=== PATIENT | female | born 1970 | race Caucasian/White ===

== ENCOUNTER → 2018-01-22 09:41 | Outpatient (CLI) | payer OTHER, SELFPAY ==
--- NOTE | 2018-01-22 09:42 | DI.RAD.S_ITS ---
PROCEDURE: XR LUMBAR SPINE 2-3V INDICATIONS: Low back and left leg pain TECHNIQUE: 3 views of the lumbar spine were acquired. COMPARISON: None. FINDINGS: Bones: 5 [id number] vertebrae are present. There is normal bony alignment. No vertebral body compression fractures. No suspicious bony lesions. Limbus vertebra noted at the L4 level. Multilevel early disc degeneration Soft tissues: Overlying bowel gas pattern is normal. No suspicious soft tissue calcifications. IMPRESSION: 1. Endplate osteophytes indicating early mild multilevel disc degeneration. Dictated by: Antonio Manrique [facility] Interpreted: Erick Nayak MD on 01/22/2018 at 11:44 Approved by: Erick Nayak M.D. on 01/22/2018 at 13:57
== END ==
PROVIDERS: Family Provider Physician Assistant; PCP Physician Assistant; Visit Provider Physician Assistant
DX: M51.16 Intervertebral disc disorders with radiculopathy, lumbar region (principal); M79.605 Pain in left leg; M54.5 Low back pain
CPT/HCPCS: 72100

== ENCOUNTER → 2018-01-29 12:50 | Outpatient (CLI) | payer OTHER, SELFPAY ==
--- NOTE | 2018-01-29 | DI.MG.S_ITS ---
BILATERAL DIGITAL SCREENING MAMMOGRAM 3D/2D WITH CAD: 01/29/2018 CLINICAL: Routine screening. Comparison is made to exams dated: 01/07/2017 mammogram, 11/21/2015 mammogram, and 11/16/2014 mammogram - [facility]. The tissue of both breasts is heterogeneously dense. This may lower the sensitivity of mammography. Current study was also evaluated with a Computer Aided Detection (CAD) system. There is an asymmetry in the right breast middle depth medial region seen on the craniocaudal view only. No other significant masses, calcifications, or other findings are seen in either breast. IMPRESSION: INCOMPLETE: NEEDS ADDITIONAL IMAGING EVALUATION The asymmetry in the right breast is indeterminate. Additional views with possible ultrasound are recommended. This exam was interpreted at Station ID: [id number]. NOTE: For mammograms, a report in lay terms will be sent to the patient. Approximately 15% of breast malignancies will not be visualized mammographically. In the management of a palpable breast mass, a negative mammogram must not discourage biopsy of a clinically suspicious lesion. Electronically Signed By: Kanika medina/jil:01/29/2018 14:46:32 letter sent: Additional Imaging Needed ACR BI-RADS Category 0: Incomplete 3340F
== END ==
PROVIDERS: Family Provider Physician Assistant; PCP Physician Assistant; Visit Provider Physician Assistant
DX: Z12.31 Encounter for screening mammogram for malignant neoplasm of breast (principal)
CPT/HCPCS: 77063; 77067

== ENCOUNTER → 2018-02-22 08:23 | Outpatient (CLI) | payer OTHER, SELFPAY ==
--- NOTE | 2018-02-22 08:27 | DI.US.S_ITS ---
ULTRASOUND OF RIGHT BREAST: 02/22/2018 CLINICAL: Patient returns today to evaluate a density in the right breast. Comparison is made to exams dated: 02/22/2018 mammogram, 01/29/2018 mammogram, 01/07/2017 mammogram, 11/21/2015 mammogram, and 11/16/2014 mammogram - [facility]. Color flow and real-time ultrasound of the right breast were performed on the areas of interest. Deluca scale images of the real-time examination were reviewed. There is a septated cyst in the right breast at 1 o'clock middle depth. This cyst is hypoechoic with posterior acoustic enhancement. There also a lymph node in the right axillary tail with an enlarged fatty hilum. No cortical thickening noted. IMPRESSION: PROBABLY BENIGN The septated cyst in the right breast at 1 o'clock middle depth is probably benign. Follow-up mammogram and ultrasound in 6 months is recommended. The enlarged, fatty lymph node in the right axillary tail is probably benign. A follow-up ultrasound in 6 months is recommended. This exam was interpreted at Station ID: [id number]. Electronically Signed By: Kanika medina/:02/22/2018 09:42:41 letter sent: Followup Recommended Ultrasound BI-RADS: 3 Probably benign
--- NOTE | 2018-02-22 08:27 | DI.MG.S_ITS ---
UNILATERAL RIGHT DIGITAL DIAGNOSTIC MAMMOGRAM 3D/2D WITH ADDITIONAL VIEWS: 02/22/2018 CLINICAL: Additional evaluation requested from prior study. Comparison is made to exams dated: 01/29/2018 mammogram, 01/07/2017 mammogram, and 11/21/2015 mammogram - [facility]. The tissue of right breast is heterogeneously dense. This may lower the sensitivity of mammography. There is a mass in the right breast at 3 o'clock middle depth. No other significant masses or calcifications are seen in the breast. IMPRESSION: INCOMPLETE: NEEDS ADDITIONAL IMAGING EVALUATION The mass in the right breast is indeterminate. A targeted ultrasound of the right breast is recommended and will be performed immediately following this exam. This exam was interpreted at Station ID: [id number]. NOTE: For mammograms, a report in lay terms will be sent to the patient. Approximately 15% of breast malignancies will not be visualized mammographically. In the management of a palpable breast mass, a negative mammogram must not discourage biopsy of a clinically suspicious lesion. Electronically Signed By: Kanika medina/:02/22/2018 15:53:11 letter sent: Additional Imaging Needed ACR BI-RADS Category 0: Incomplete 3340F
== END ==
PROVIDERS: PCP Physician Assistant; Visit Provider Physician Assistant
DX: R92.8 Other abnormal and inconclusive findings on diagnostic imaging of breast (principal); N60.01 Solitary cyst of right breast
CPT/HCPCS: 76642; 77065; G0279

== ENCOUNTER → 2018-02-22 11:10 | Outpatient (CLI) | payer OTHER, SELFPAY | PROVIDERS: Family Provider Physician Assistant; PCP Physician Assistant; Visit Provider Physician Assistant | DX: N30.01 Acute cystitis with hematuria (principal) | CPT/HCPCS: 87077; 87086 ==

== ENCOUNTER 2018-04-06 14:30 | Outpatient (RCR) | payer OTHER, SELFPAY ==
--- NOTE | 2018-02-15 12:57 | PT.OIE ---
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 Family Provider Primary Care Provider Specialty: Medical Address: [address] [place] [address], [facility] Email: [email or web address] Physical Therapy Initial Evaluation PT-OP-A Visit Information Start: 02/10/18 16:06 Freq: Status: Active Protocol: Document 02/10/18 16:07 EA (Rec: 02/10/18 16:31 EA [id number]) Out-Patient Physical Therapy Visit Information Visit Information Visit Type Initial Evaluation Visit Start Time 13:45 Visit Stop Time 14:20 Total Visit Minutes 35 Visit Number 1 Evaluation Information Evaluation Date 02/10/18 PT-OP-B Current Condition Start: 02/10/18 16:06 Freq: Status: Active Protocol: Document 02/10/18 16:07 EA (Rec: 02/10/18 16:31 EA [id number]) Current Condition History of Current Condition Onset Date 9 months ago Current Complaints Left post hip, thigh and calf radiating pain History of Current Condition Patient reports left LE condition started 1 year ago with no known injury or surgical history; states it occurs gradually. Pt reports condition starts to aggravates in the past weeks and intensifies more in sitting position; states it improves but not completely disappears upon standing and walking. However, long standing and walking aggravates the condition as well. X-rays to lumbar spine reveals early DDD . 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 Functional Limitations- Work/School Limited sitting tolerance. Functional Limitations- Recreation/ unable Hobbies PT-OP-C Subjective Start: 02/10/18 16:06 Freq: Status: Active Protocol: Document 02/10/18 16:07 EA (Rec: 02/10/18 16:31 EA [id number]) OP-PT Subjective Patient Comments Patient Comments Patient wants to eliminate pain and be back to previous level of function Patient Reported Progress Worse Patient Questionnaires Lower Extremity Functional Scale LEFS Score 50 LEFS Impairment 40 to 59% Impaired (Score 32- 47) OP-PT Pain Assessment Pain Assessment Grid Paper Pain Assessment Grid Completed Yes Location Left Upper Posterior Hip Intensity 6 Scale Used Numeric (1 - 10) Description Aching Frequency Intermittent Pain Aggravating Factors Position Exercise Sitting Home Pain Medication Use Pain Medications Used No Pain Behaviors Pain Behaviors Wincing PT-OP-F Manual Assessment Start: 02/10/18 16:06 Freq: Status: Active Protocol: Document 02/10/18 16:07 EA (Rec: 02/10/18 16:31 EA [id number]) Manual Assessments Soft Tissue Assessment Soft Tissue Mobility Assessment Left piriformis, quads, hip flexors Joint Mobility Assessment Joint Mobility Assessment WFL PT-OP-G Mobility & Gait Start: 02/10/18 16:06 Freq: Status: Active Protocol: Document 02/10/18 16:07 EA (Rec: 02/10/18 16:31 EA [id number]) OP Gait Assessment Gait Gait Assistance Required: Independent Able to Maintain Weight Bearing Status Yes During Gait Gait Deviations General Gait Pattern Antalgic Comments Gait Comments Increased left foot out PT-OP-J Posture/Palpation/Skin Start: 02/10/18 16:06 Freq: Status: Active Protocol: Document 02/10/18 16:07 EA (Rec: 02/10/18 16:31 EA [id number]) Posture Evaluation Position Standing Hip Posture (L) Externally Rotated Patellar Posture (L) Laterally Tilted Palpation Assessment Location One Palpation Location Left upper gluteals, hip E- rotators, ITB Palpation Findings Tenderness PT-OP-K Range of Motion Start: 02/10/18 16:06 Freq: Status: Active Protocol: Document 02/10/18 16:07 EA (Rec: 02/10/18 16:31 EA [id number]) Lumbar Spine Range of Motion Lumbar Spine Active Percentage Testing Position standing Flexion 80 Extension 80 Rotation Left 85 Rotation Right 85 Lateral Flexion Left 70 Lateral Flexion Right 75 ROM Limitations Soft Tissue Tightness Pain Hip Goniometric Range of Motion Hip Measured in Degrees Left Active Hip ROM WFL Yes Internal Rotation 25 Hip ROM Limitations Hip ROM Limitations Soft Tissue Tightness Pain Knee Goniometric Range of Motion Knee Measured in Degrees Left Knee ROM WFL Yes PT-OP-L Special Tests Start: 02/10/18 16:06 Freq: Status: Active Protocol: Document 02/10/18 16:07 EA (Rec: 02/10/18 16:31 EA [id number]) Special Tests Lumbar Spine Special Tests Other- 2 Test Results + piriformis test Other- 1 Test Results + sacral compression Straight Leg Raise Test Results - Knee Special Tests Pepe's Test Test Results Tight Left ITB Neural Special Tests- Lower Body Femoral Nerve Tension Test Results - PT-OP-M Strength Start: 02/10/18 16:06 Freq: Status: Active Protocol: Document 02/10/18 16:07 EA (Rec: 02/10/18 16:31 EA [id number]) Trunk Strength Trunk Manual Muscle Testing Flexion 4 Good Extension 4 Good Rotation Left 4 Good Rotation Right 4 Good Lateral Flexion Left 4- Good- Lateral Flexion Right 4- Good- Knee Strength Knee Manual Muscle Testing Right Flexion (S2) 5 Normal Extension (L3) 5 Normal Left Flexion (S2) 4- Good- Extension (L3) 4 Good Ankle/Foot Strength Ankle and Foot Manual Muscle Testing Left Dorsiflexion (L4) 4- Good- Plantarflexion (S1) 4+ Good+ Inversion 5 Normal Eversion (S1) 5 Normal PT-OP-Q Treatments Start: 02/10/18 16:06 Freq: Status: Active Protocol: Document 02/10/18 16:31 EA (Rec: 02/10/18 16:32 EA [id number]) Self-Care/Home Management Treatment Education Patient Education Body Mechanics Home Exercise Program Pain Management Posture PT-OP-T Assessment and Plan Start: 02/10/18 16:06 Freq: Status: Active Protocol: Document 02/10/18 16:07 EA (Rec: 02/10/18 16:31 EA [id number]) Physical Therapy Assessment Rehab Potential Rehabilitation Potential Good Evaluation Complexity Number of Personal Factors/Comorbidities 1-2 Number of Body Systems Impaired 1-2 Clinical Presentation at Evaluation Evolving Impairments Impairments Activity Tolerance Functional Activities Functional Mobility Gait Pain Posture ROM Strength Goals Four Impairment Impaired lumbar ROM Alf Goal (LTG) Patient will exhibit normal lumbar ROM to improve functional mobility. LTG Duration 4 wks Three Impairment Impaired left hip and lower back muscular flexibility. Cork Painter And Grader Goal (LTG) Patient will exhibit normal flexibility to LLE and lumbar musculature for efficient function. LTG Duration 4 wks Two Impairment Left LE impaired strength Alf Goal (LTG) Patient will increase LLE strength by 1/2 grade for functional mobility LTG Duration 4 wks One Impairment LEFS impairment score of 50 Alf Goal (LTG) Patient will have LEFS score of > 65 LTG Duration 4 wks Assessment Summary Assessment Pleasant 47 y/o F patient diagnosed with low back pain radiating to LE. Today patient demonstrates signs and symptoms consistent with left sciatica with test positive to Piriformis, SI joint dysfunction test and with increasing symptoms upon palpation to left upper outer gluteal region. Lumbar neural tests appears negative. Due to pain and slight weakness, patient exhibits difficulty with walking and noted increased hip E-rotation and foot out during gait observation. Due to patient low back and hip dysfunction, patient unable to perform tasks that she commonly perform. In my professional opinion, patient would benefit with skilled PT to address the aforementioned issues. Physical Therapy Plan Frequency and Duration Frequency of Treatment 2x/Week Duration of Treatment 8 Plan of Care Start Date 02/10/18 Plan of Care End Date 04/07/18 Therapeutic Interventions Therapeutic Interventions Gait Training Home Exercise Program Joint Mobilizations Manual Therapy Patient/Caregiver Education Self-Care/Home Management Soft Tissue Mobilization Therapeutic Exercises Modalities Cold Pack/Ice Massage Electric Stimulation Hot Packs Next Visit Focus/Plan Next Note Type Treatment Note Next Visit Plan Provide HEP copy. decreased tightness to piriformis.
--- NOTE | 2018-02-15 12:57 | PT.OPPOC ---
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 Family Provider Primary Care Provider Specialty: Medical Address: [address] [place] [address], [id number] Email: [email or web address] Plan Of Care PT-OP-T Assessment and Plan Start: 02/10/18 16:06 Freq: Status: Active Protocol: Document 02/10/18 16:07 EA (Rec: 02/10/18 16:31 EA [id number]) Physical Therapy Assessment Rehab Potential Rehabilitation Potential Good Evaluation Complexity Number of Personal Factors/Comorbidities 1-2 Number of Body Systems Impaired 1-2 Clinical Presentation at Evaluation Evolving Impairments Impairments Activity Tolerance Functional Activities Functional Mobility Gait Pain Posture ROM Strength Goals Four Impairment Impaired lumbar ROM Segment Assembler Goal (LTG) Patient will exhibit normal lumbar ROM to improve functional mobility. LTG Duration 4 wks Three Impairment Impaired left hip and lower back muscular flexibility. Segment Assembler Goal (LTG) Patient will exhibit normal flexibility to LLE and lumbar musculature for efficient function. LTG Duration 4 wks Two Impairment Left LE impaired strength Segment Assembler Goal (LTG) Patient will increase LLE strength by 1/2 grade for functional mobility LTG Duration 4 wks One Impairment LEFS impairment score of 50 Segment Assembler Goal (LTG) Patient will have LEFS score of > 65 LTG Duration 4 wks Assessment Summary Assessment Pleasant 47 y/o F patient diagnosed with low back pain radiating to LE. Today patient demonstrates signs and symptoms consistent with left sciatica with test positive to Piripormis, SI joint dysfunction test and with increasing symptoms upon palpation to left upper outer gluteal region. Lumbar neural tests appears negative. Due to pain and slight weakness, patient exhibits difficulty with walking and noted increased hip E-rotation and foot out during gait observation. Due to patient low back and hip dysfunction, patient unable to perform tasks that she commonly perform. In my professional opinion, patient would benefit with skilled PT to address the aforementioned issues. Physical Therapy Plan Frequency and Duration Frequency of Treatment 2x/Week Duration of Treatment 8 Plan of Care Start Date 02/10/18 Plan of Care End Date 04/07/18 Therapeutic Interventions Therapeutic Interventions Gait Training Home Exercise Program Joint Mobilizations Manual Therapy Patient/Caregiver Education Self-Care/Home Management Soft Tissue Mobilization Therapeutic Exercises Modalities Cold Pack/Ice Massage Electric Stimulation Hot Packs Next Visit Focus/Plan Next Note Type Treatment Note Next Visit Plan Provide HEP copy. decreased tightness to piriformis. Plan of Care Dates Plan of Care Start Date 02/10/18 Plan of Care End Date 04/07/18 Please Sign and Return: I have reviewed this Plan of Care and certify that the skilled therapy services above are required to meet the patient?s needs. Physician Signature Date Printed Name and Credentials Clinical Instructor Signature Printed Name and Credentials
--- NOTE | 2018-02-23 15:02 | PT.OTN ---
Current Diagnoses Low back pain (02/23/18) Pain in left leg (02/23/18) Pain in right foot (02/23/18) Physical Therapy Treatment Note PT-OP-A Visit Information Start: 02/10/18 16:06 Freq: Status: Active Protocol: Document 02/23/18 13:45 LRN (Rec: 02/23/18 14:52 LRN [id number]) Out-Patient Physical Therapy Visit Information Visit Information Visit Type Treatment Note Visit Start Time 13:45 Visit Stop Time 14:40 Total Visit Minutes 55 Visit Number 2 Number of SEED CORE OPERATOR Visits 0 Evaluation Information Evaluation Date 02/10/18 PT-OP-B Current Condition Start: 02/10/18 16:06 Freq: Status: Active Protocol: Document 02/10/18 16:07 EA (Rec: 02/10/18 16:31 EA [id number]) Current Condition History of Current Condition Onset Date 9 months ago Current Complaints Left post hip, thigh and calf radiating pain History of Current Condition Patient reports left LE condition started 1 year ago with no known injury or surgical history; states it occurs gradually. Pt reports condition starts to aggravates in the past weeks and intensifies more in sitting position; states it improves but not completely disappears upon standing and walking. However, long standing and walking aggravates the condition as well. X-rays to lumbar spine reveals early DDD . 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 Functional Limitations- Work/School Limited sitting tolerance. Functional Limitations- Recreation/ unable Hobbies PT-OP-C Subjective Start: 02/10/18 16:06 Freq: Status: Active Protocol: Document 02/23/18 13:45 LRN (Rec: 02/23/18 14:52 LRN [id number]) OP-PT Subjective Patient Comments Patient Comments Better because she hasn't worked for the past 3 days. She starts again tomorrow. PT-OP-F Manual Assessment Start: 02/10/18 16:06 Freq: Status: Active Protocol: Document 02/10/18 16:07 EA (Rec: 02/10/18 16:31 EA [id number]) Manual Assessments Soft Tissue Assessment Soft Tissue Mobility Assessment Left piriformis, quads, hip flexors Joint Mobility Assessment Joint Mobility Assessment WFL PT-OP-G Mobility & Gait Start: 02/10/18 16:06 Freq: Status: Active Protocol: Document 02/10/18 16:07 EA (Rec: 02/10/18 16:31 EA [id number]) OP Gait Assessment Gait Gait Assistance Required: Independent Able to Maintain Weight Bearing Status Yes During Gait Gait Deviations General Gait Pattern Antalgic Comments Gait Comments Increased left foot out PT-OP-J Posture/Palpation/Skin Start: 02/10/18 16:06 Freq: Status: Active Protocol: Document 02/10/18 16:07 EA (Rec: 02/10/18 16:31 EA [id number]) Posture Evaluation Position Standing Hip Posture (L) Externally Rotated Patellar Posture (L) Laterally Tilted Palpation Assessment Location One Palpation Location Left upper gluteals, hip E- rotators, ITB Palpation Findings Tenderness PT-OP-K Range of Motion Start: 02/10/18 16:06 Freq: Status: Active Protocol: Document 02/10/18 16:07 EA (Rec: 02/10/18 16:31 EA [id number]) Lumbar Spine Range of Motion Lumbar Spine Active Percentage Testing Position standing Flexion 80 Extension 80 Rotation Left 85 Rotation Right 85 Lateral Flexion Left 70 Lateral Flexion Right 75 ROM Limitations Soft Tissue Tightness Pain Hip Goniometric Range of Motion Hip Measured in Degrees Left Active Hip ROM WFL Yes Internal Rotation 25 Hip ROM Limitations Hip ROM Limitations Soft Tissue Tightness Pain Knee Goniometric Range of Motion Knee Measured in Degrees Left Knee ROM WFL Yes PT-OP-L Special Tests Start: 02/10/18 16:06 Freq: Status: Active Protocol: Document 02/10/18 16:07 EA (Rec: 02/10/18 16:31 EA [id number]) Special Tests Lumbar Spine Special Tests Other- 2 Test Results + piriformis test Other- 1 Test Results + sacral compression Straight Leg Raise Test Results - Knee Special Tests Pepe's Test Test Results Tight Left ITB Neural Special Tests- Lower Body Femoral Nerve Tension Test Results - PT-OP-M Strength Start: 02/10/18 16:06 Freq: Status: Active Protocol: Document 02/10/18 16:07 EA (Rec: 02/10/18 16:31 EA [id number]) Trunk Strength Trunk Manual Muscle Testing Flexion 4 Good Extension 4 Good Rotation Left 4 Good Rotation Right 4 Good Lateral Flexion Left 4- Good- Lateral Flexion Right 4- Good- Knee Strength Knee Manual Muscle Testing Right Flexion (S2) 5 Normal Extension (L3) 5 Normal Left Flexion (S2) 4- Good- Extension (L3) 4 Good Ankle/Foot Strength Ankle and Foot Manual Muscle Testing Left Dorsiflexion (L4) 4- Good- Plantarflexion (S1) 4+ Good+ Inversion 5 Normal Eversion (S1) 5 Normal PT-OP-Q Treatments Start: 02/10/18 16:06 Freq: Status: Active Protocol: Document 02/23/18 13:45 LRN (Rec: 02/23/18 14:52 LRN [id number]) Therapeutic Exercises Supine Exercises 4 Supine Exercise Name TA with hip AB & isometric hip AD Resistance T-Band Equipment Used Lev 1 Reps/Minutes 8 3 Supine Exercise Name Abdominal tightening (TA) Reps/Minutes 4 2 Supine Exercise Name Hip ER stretch Side bilateral Reps/Minutes 3 1 Supine Exercise Name Piriformis stretch: Long sit & supine Side bilateral Reps/Minutes 3 Comments Left side in longsit, bilateral in supine Therapeutic Activity Therapeutic Activity Body mechanics training Name Lifting, pushing, moving a patient from supine to sit. Reps/Minutes 10 Comments Educated pt in neutral spine positioning with all transfers and body mechanics. 1 Name Transfer training supine to sit (log roll) Reps/Minutes 3 Manual Therapy Treatment Soft Tissue Mobilization 1 Body Location Lower thoracic and lumbar paraspinals (R>L) Mobilization Type Strumming Sustained Pressure Trigger Point Release Intensity/Depth Moderate Body Position Prone Comments Pt Trigger points on R side of trunk under ribcage. Self-Care/Home Management Treatment Education Patient Education Body Mechanics Pain Management Activities Self-Care/Home Management Activities -Body mechanics training. -Use of cold packs at work/ home. -Discussed fluid intake and precautions to monitor LBP. PT-OP-R Modalities Start: 02/10/18 16:06 Freq: Status: Active Protocol: Document 02/23/18 13:45 LRN (Rec: 02/23/18 14:52 LRN [id number]) Hot Pack/Cold Pack Treatment Cold Pack Location Lower Thoracic and lumbar region Patient Position Supine Treatment Duration (minutes) 10 Patient Tolerance Good PT-OP-T Assessment and Plan Start: 02/10/18 16:06 Freq: Status: Active Protocol: Document 02/23/18 13:45 LRN (Rec: 02/23/18 14:52 LRN [id number]) Physical Therapy Assessment Assessment Summary Assessment Pt is better, possibly due to not having to work for the past 3 days. Pt is having R back pain under last rib, ? kidney? Pt is currently being treated for UTI. Pt pelvis appears level but L innominate is posteriorly rotated in long sit; therefore SIJ instability is present. She has a 3 finger width rectus diastasis that will hinder her ability core stability progression. Physical Therapy Plan Frequency and Duration Frequency of Treatment 2x/Week Duration of Treatment 8 Plan of Care Start Date 02/10/18 Plan of Care End Date 04/07/18 Next Visit Focus/Plan Next Note Type Treatment Note Next Visit Plan Assess pt's response to returning work after a few days off. Continue with core stabilization and normalize hip mobility. Progress HEP as pt tolerates.
--- NOTE | 2018-03-09 14:25 | PT.OTN ---
Current Diagnoses Low back pain (03/09/18) Pain in left leg (03/09/18) Pain in right foot (03/09/18) Physical Therapy Treatment Note PT-OP-A Visit Information Start: 02/10/18 16:06 Freq: Status: Active Protocol: Document 03/09/18 13:45 DCW (Rec: 03/09/18 14:25 DCW [id number]) Out-Patient Physical Therapy Visit Information Visit Information Visit Type Treatment Note Visit Start Time 13:45 Visit Stop Time 14:35 Total Visit Minutes 50 Visit Number 3 Number of ANIMAL SITTER Visits 0 Evaluation Information Evaluation Date 02/10/18 PT-OP-B Current Condition Start: 02/10/18 16:06 Freq: Status: Active Protocol: Document 02/10/18 16:07 EA (Rec: 02/10/18 16:31 EA [id number]) Current Condition History of Current Condition Onset Date 9 months ago Current Complaints Left post hip, thigh and calf radiating pain History of Current Condition Patient reports left LE condition started 1 year ago with no known injury or surgical history; states it occurs gradually. Pt reports condition starts to aggravates in the past weeks and intensifies more in sitting position; states it improves but not completely disappears upon standing and walking. However, long standing and walking aggravates the condition as well. X-rays to lumbar spine reveals early DDD . 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 Functional Limitations- Work/School Limited sitting tolerance. Functional Limitations- Recreation/ unable Hobbies PT-OP-C Subjective Start: 02/10/18 16:06 Freq: Status: Active Protocol: Document 03/09/18 13:45 DCW (Rec: 03/09/18 14:25 DCW [id number]) OP-PT Subjective Patient Comments Patient Comments Pt notes her back is feeling better, but having pain down the back of her left leg. PT-OP-F Manual Assessment Start: 02/10/18 16:06 Freq: Status: Active Protocol: Document 02/10/18 16:07 EA (Rec: 02/10/18 16:31 EA [id number]) Manual Assessments Soft Tissue Assessment Soft Tissue Mobility Assessment Left piriformis, quads, hip flexors Joint Mobility Assessment Joint Mobility Assessment WFL PT-OP-G Mobility & Gait Start: 02/10/18 16:06 Freq: Status: Active Protocol: Document 02/10/18 16:07 EA (Rec: 02/10/18 16:31 EA [id number]) OP Gait Assessment Gait Gait Assistance Required: Independent Able to Maintain Weight Bearing Status Yes During Gait Gait Deviations General Gait Pattern Antalgic Comments Gait Comments Increased left foot out PT-OP-J Posture/Palpation/Skin Start: 02/10/18 16:06 Freq: Status: Active Protocol: Document 02/10/18 16:07 EA (Rec: 02/10/18 16:31 EA [id number]) Posture Evaluation Position Standing Hip Posture (L) Externally Rotated Patellar Posture (L) Laterally Tilted Palpation Assessment Location One Palpation Location Left upper gluteals, hip E- rotators, ITB Palpation Findings Tenderness PT-OP-K Range of Motion Start: 02/10/18 16:06 Freq: Status: Active Protocol: Document 02/10/18 16:07 EA (Rec: 02/10/18 16:31 EA [id number]) Lumbar Spine Range of Motion Lumbar Spine Active Percentage Testing Position standing Flexion 80 Extension 80 Rotation Left 85 Rotation Right 85 Lateral Flexion Left 70 Lateral Flexion Right 75 ROM Limitations Soft Tissue Tightness Pain Hip Goniometric Range of Motion Hip Measured in Degrees Left Active Hip ROM WFL Yes Internal Rotation 25 Hip ROM Limitations Hip ROM Limitations Soft Tissue Tightness Pain Knee Goniometric Range of Motion Knee Measured in Degrees Left Knee ROM WFL Yes PT-OP-L Special Tests Start: 02/10/18 16:06 Freq: Status: Active Protocol: Document 02/10/18 16:07 EA (Rec: 02/10/18 16:31 EA [id number]) Special Tests Lumbar Spine Special Tests Other- 2 Test Results + piriformis test Other- 1 Test Results + sacral compression Straight Leg Raise Test Results - Knee Special Tests Pepe's Test Test Results Tight Left ITB Neural Special Tests- Lower Body Femoral Nerve Tension Test Results - PT-OP-M Strength Start: 02/10/18 16:06 Freq: Status: Active Protocol: Document 02/10/18 16:07 EA (Rec: 02/10/18 16:31 EA [id number]) Trunk Strength Trunk Manual Muscle Testing Flexion 4 Good Extension 4 Good Rotation Left 4 Good Rotation Right 4 Good Lateral Flexion Left 4- Good- Lateral Flexion Right 4- Good- Knee Strength Knee Manual Muscle Testing Right Flexion (S2) 5 Normal Extension (L3) 5 Normal Left Flexion (S2) 4- Good- Extension (L3) 4 Good Ankle/Foot Strength Ankle and Foot Manual Muscle Testing Left Dorsiflexion (L4) 4- Good- Plantarflexion (S1) 4+ Good+ Inversion 5 Normal Eversion (S1) 5 Normal PT-OP-Q Treatments Start: 02/10/18 16:06 Freq: Status: Active Protocol: Document 03/09/18 13:45 DCW (Rec: 03/09/18 14:25 DCW [id number]) Gym Equipment Therapeutic Ball T-ball Bridging /c HS curl Exercise Details Bridging /c HS curl Ball Size/Color Red - 55 cm Body Position Supine T-ball Bridging Exercise Details Bridging /c feet on T-ball Ball Size/Color Red - 55 cm Body Position Supine Therapeutic Exercises Supine Exercises PPT /c TrA - Air Bike Supine Exercise Name Air Bike /c TrA activation Side bilateral PPT /c TrA - Marching Supine Exercise Name Supine marching /c TrA activation Side bilateral PPT /c TrA - Alternating SLR Supine Exercise Name Alternating SLR /c TrA activation Side bilateral 3 Supine Exercise Name Abdominal tightening (TA) Reps/Minutes 4 1 Supine Exercise Name Piriformis stretch: Long sit & supine Side bilateral Reps/Minutes 3 Comments in supine Sidelying Exercises Reverse Clam Shell Sidelying Exercise Name Hip IR Side bilateral Clam Shell Sidelying Exercise Name Hip ER Side bilateral Manual Therapy Treatment Soft Tissue Mobilization 1 Body Location Lower thoracic and lumbar paraspinals (R>L) Mobilization Type Strumming Sustained Pressure Trigger Point Release Intensity/Depth Moderate Body Position Prone Comments Pt Trigger points on R side of trunk under ribcage. Manual Traction Lumbar Spine Details Traction at Iliac crest Body Position Sidelying PT-OP-R Modalities Start: 02/10/18 16:06 Freq: Status: Active Protocol: Document 03/09/18 13:45 DCW (Rec: 03/09/18 14:25 DCW [id number]) Hot Pack/Cold Pack Treatment Cold Pack Location Lower Thoracic and lumbar region Patient Position Supine Treatment Duration (minutes) 10 Patient Tolerance Good PT-OP-T Assessment and Plan Start: 02/10/18 16:06 Freq: Status: Active Protocol: Document 03/09/18 13:45 DCW (Rec: 03/09/18 14:25 DCW [id number]) Physical Therapy Assessment Impairments Impairments Activity Tolerance Functional Activities Functional Mobility Gait Pain Posture ROM Strength Goals Four Impairment Impaired lumbar ROM Chcf Goal (LTG) Patient will exhibit normal lumbar ROM to improve functional mobility. LTG Duration 4 wks Three Impairment Impaired left hip and lower back muscular flexibility. Benchroom Shop Optician Goal (LTG) Patient will exhibit normal flexibility to LLE and lumbar musculature for efficient function. LTG Duration 4 wks Two Impairment Left LE impaired strength Benchroom Shop Optician Goal (LTG) Patient will increase LLE strength by 1/2 grade for functional mobility LTG Duration 4 wks One Impairment LEFS impairment score of 50 Benchroom Shop Optician Goal (LTG) Patient will have LEFS score of > 65 LTG Duration 4 wks Assessment Summary Assessment Pt appears to be improving, had no complaints regarding new TherEx. Pt reports her last real painful day was again at work. Physical Therapy Plan Frequency and Duration Frequency of Treatment 2x/Week Duration of Treatment 8 Plan of Care Start Date 02/10/18 Plan of Care End Date 04/07/18 Next Visit Focus/Plan Next Note Type Treatment Note Next Visit Plan Continue with core stabilization and normalize hip mobility. Progress HEP as pt tolerates.
--- NOTE | 2018-03-16 15:57 | PT.OTN ---
Current Diagnoses Low back pain (03/16/18) Pain in left leg (03/16/18) Pain in right foot (03/16/18) Physical Therapy Treatment Note PT-OP-A Visit Information Start: 02/10/18 16:06 Freq: Status: Active Protocol: Document 03/16/18 15:05 EA (Rec: 03/16/18 15:11 EA [id number]) Out-Patient Physical Therapy Visit Information Visit Information Visit Type Treatment Note Visit Start Time 14:30 Visit Stop Time 15:20 Total Visit Minutes 50 Visit Number 4 Number of COLD WORKING SUPERVISOR Visits 0 PT-OP-B Current Condition Start: 02/10/18 16:06 Freq: Status: Active Protocol: Document 02/10/18 16:07 EA (Rec: 02/10/18 16:31 EA [id number]) Current Condition History of Current Condition Onset Date 9 months ago Current Complaints Left post hip, thigh and calf radiating pain History of Current Condition Patient reports left LE condition started 1 year ago with no known injury or surgical history; states it occurs gradually. Pt reports condition starts to aggravates in the past weeks and intensifies more in sitting position; states it improves but not completely disappears upon standing and walking. However, long standing and walking aggravates the condition as well. X-rays to lumbar spine reveals early DDD . 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 Functional Limitations- Work/School Limited sitting tolerance. Functional Limitations- Recreation/ unable Hobbies PT-OP-C Subjective Start: 02/10/18 16:06 Freq: Status: Active Protocol: Document 03/16/18 15:05 EA (Rec: 03/16/18 15:11 EA [id number]) OP-PT Subjective Patient Comments Patient Comments Pt reports pain is not improving;states she has to medified work task due to pain . PT-OP-F Manual Assessment Start: 02/10/18 16:06 Freq: Status: Active Protocol: Document 02/10/18 16:07 EA (Rec: 02/10/18 16:31 EA [id number]) Manual Assessments Soft Tissue Assessment Soft Tissue Mobility Assessment Left piriformis, quads, hip flexors Joint Mobility Assessment Joint Mobility Assessment WFL PT-OP-G Mobility & Gait Start: 02/10/18 16:06 Freq: Status: Active Protocol: Document 02/10/18 16:07 EA (Rec: 02/10/18 16:31 EA [id number]) OP Gait Assessment Gait Gait Assistance Required: Independent Able to Maintain Weight Bearing Status Yes During Gait Gait Deviations General Gait Pattern Antalgic Comments Gait Comments Increased left foot out PT-OP-J Posture/Palpation/Skin Start: 02/10/18 16:06 Freq: Status: Active Protocol: Document 02/10/18 16:07 EA (Rec: 02/10/18 16:31 EA [id number]) Posture Evaluation Position Standing Hip Posture (L) Externally Rotated Patellar Posture (L) Laterally Tilted Palpation Assessment Location One Palpation Location Left upper gluteals, hip E- rotators, ITB Palpation Findings Tenderness PT-OP-K Range of Motion Start: 02/10/18 16:06 Freq: Status: Active Protocol: Document 02/10/18 16:07 EA (Rec: 02/10/18 16:31 EA [id number]) Lumbar Spine Range of Motion Lumbar Spine Active Percentage Testing Position standing Flexion 80 Extension 80 Rotation Left 85 Rotation Right 85 Lateral Flexion Left 70 Lateral Flexion Right 75 ROM Limitations Soft Tissue Tightness Pain Hip Goniometric Range of Motion Hip Measured in Degrees Left Active Hip ROM WFL Yes Internal Rotation 25 Hip ROM Limitations Hip ROM Limitations Soft Tissue Tightness Pain Knee Goniometric Range of Motion Knee Measured in Degrees Left Knee ROM WFL Yes PT-OP-L Special Tests Start: 02/10/18 16:06 Freq: Status: Active Protocol: Document 02/10/18 16:07 EA (Rec: 02/10/18 16:31 EA [id number]) Special Tests Lumbar Spine Special Tests Other- 2 Test Results + piriformis test Other- 1 Test Results + sacral compression Straight Leg Raise Test Results - Knee Special Tests Pepe's Test Test Results Tight Left ITB Neural Special Tests- Lower Body Femoral Nerve Tension Test Results - PT-OP-M Strength Start: 02/10/18 16:06 Freq: Status: Active Protocol: Document 02/10/18 16:07 EA (Rec: 02/10/18 16:31 EA [id number]) Trunk Strength Trunk Manual Muscle Testing Flexion 4 Good Extension 4 Good Rotation Left 4 Good Rotation Right 4 Good Lateral Flexion Left 4- Good- Lateral Flexion Right 4- Good- Knee Strength Knee Manual Muscle Testing Right Flexion (S2) 5 Normal Extension (L3) 5 Normal Left Flexion (S2) 4- Good- Extension (L3) 4 Good Ankle/Foot Strength Ankle and Foot Manual Muscle Testing Left Dorsiflexion (L4) 4- Good- Plantarflexion (S1) 4+ Good+ Inversion 5 Normal Eversion (S1) 5 Normal PT-OP-Q Treatments Start: 02/10/18 16:06 Freq: Status: Active Protocol: Document 03/16/18 15:05 EA (Rec: 03/16/18 15:11 EA [id number]) Cardio Equipment Recumbent Bicycle Duration (Minutes) 5 Other warm up Therapeutic Exercises Supine Exercises 5 Supine Exercise Name Leg ERot stretch Reps/Minutes x 15SH x 2 PPT /c TrA - Marching Supine Exercise Name Supine marching /c TrA activation Side bilateral 4 Supine Exercise Name TA with hip AB & isometric hip AD Resistance T-Band Equipment Used Lev 1 Reps/Minutes 8 3 Supine Exercise Name Abdominal tightening (TA) Reps/Minutes 4 2 Supine Exercise Name Hip ER stretch Side bilateral Reps/Minutes 3 1 Supine Exercise Name Piriformis stretch: Long sit & supine Side bilateral Reps/Minutes 3 Comments in supine/prone Manual Therapy Treatment Soft Tissue Mobilization 1 Body Location Pralumbars upper gluteals; hip ER Left side Mobilization Type Strumming Sustained Pressure Trigger Point Release Intensity/Depth Moderate Body Position Prone Manual Traction Lumbar Spine Details Traction at Iliac crest Body Position Sidelying PT-OP-R Modalities Start: 02/10/18 16:06 Freq: Status: Active Protocol: Document 03/16/18 15:05 EA (Rec: 03/16/18 15:11 EA [id number]) Electric Stimulation Electric Stimulation Interferential Current (IFC) Body Location Left paralumbars, Upper gluteals and periformis Duration (Minutes) 15 Intensity 12 Combined With Heat/Cold Hot Pack PT-OP-T Assessment and Plan Start: 10/03/18 16:06 Freq: Status: Active Protocol: Document 03/16/18 15:05 EA (Rec: 03/16/18 15:11 EA [id number]) Physical Therapy Assessment Assessment Summary Assessment Pt reports tender spots to low back region and piriformis area is lessen after manual PT . Physical Therapy Plan Next Visit Focus/Plan Next Note Type Treatment Note Next Visit Plan Continue with core stabilization and normalize hip mobility. Progress HEP as pt tolerates.
--- NOTE | 2018-03-23 16:37 | PT.OTN ---
Current Diagnoses Low back pain (03/23/18) Pain in left leg (03/23/18) Pain in right foot (03/23/18) Physical Therapy Treatment Note PT-OP-A Visit Information Start: 02/10/18 16:06 Freq: Status: Active Protocol: Document 03/23/18 15:04 EA (Rec: 03/23/18 15:10 EA [id number]) Out-Patient Physical Therapy Visit Information Visit Information Visit Type Treatment Note Visit Start Time 14:30 Visit Stop Time 15:20 Total Visit Minutes 50 Visit Number 5 Number of MACHINE ROPE MAKER Visits 0 PT-OP-B Current Condition Start: 02/10/18 16:06 Freq: Status: Active Protocol: Document 02/10/18 16:07 EA (Rec: 02/10/18 16:31 EA [id number]) Current Condition History of Current Condition Onset Date 9 months ago Current Complaints Left post hip, thigh and calf radiating pain History of Current Condition Patient reports left LE condition started 1 year ago with no known injury or surgical history; states it occurs gradually. Pt reports condition starts to aggravates in the past weeks and intensifies more in sitting position; states it improves but not completely disappears upon standing and walking. However, long standing and walking aggravates the condition as well. X-rays to lumbar spine reveals early DDD . 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 Functional Limitations- Work/School Limited sitting tolerance. Functional Limitations- Recreation/ unable Hobbies PT-OP-C Subjective Start: 02/10/18 16:06 Freq: Status: Active Protocol: Document 03/23/18 15:04 EA (Rec: 03/23/18 15:10 EA [id number]) OP-PT Subjective Patient Comments Patient Comments Pt reports hip and thigh pain is improving since last session. PT-OP-F Manual Assessment Start: 02/10/18 16:06 Freq: Status: Active Protocol: Document 02/10/18 16:07 EA (Rec: 02/10/18 16:31 EA [id number]) Manual Assessments Soft Tissue Assessment Soft Tissue Mobility Assessment Left piriformis, quads, hip flexors Joint Mobility Assessment Joint Mobility Assessment WFL PT-OP-G Mobility & Gait Start: 02/10/18 16:06 Freq: Status: Active Protocol: Document 02/10/18 16:07 EA (Rec: 02/10/18 16:31 EA [id number]) OP Gait Assessment Gait Gait Assistance Required: Independent Able to Maintain Weight Bearing Status Yes During Gait Gait Deviations General Gait Pattern Antalgic Comments Gait Comments Increased left foot out PT-OP-J Posture/Palpation/Skin Start: 02/10/18 16:06 Freq: Status: Active Protocol: Document 02/10/18 16:07 EA (Rec: 02/10/18 16:31 EA [id number]) Posture Evaluation Position Standing Hip Posture (L) Externally Rotated Patellar Posture (L) Laterally Tilted Palpation Assessment Location One Palpation Location Left upper gluteals, hip E- rotators, ITB Palpation Findings Tenderness PT-OP-K Range of Motion Start: 02/10/18 16:06 Freq: Status: Active Protocol: Document 02/10/18 16:07 EA (Rec: 02/10/18 16:31 EA [id number]) Lumbar Spine Range of Motion Lumbar Spine Active Percentage Testing Position standing Flexion 80 Extension 80 Rotation Left 85 Rotation Right 85 Lateral Flexion Left 70 Lateral Flexion Right 75 ROM Limitations Soft Tissue Tightness Pain Hip Goniometric Range of Motion Hip Measured in Degrees Left Active Hip ROM WFL Yes Internal Rotation 25 Hip ROM Limitations Hip ROM Limitations Soft Tissue Tightness Pain Knee Goniometric Range of Motion Knee Measured in Degrees Left Knee ROM WFL Yes PT-OP-L Special Tests Start: 02/10/18 16:06 Freq: Status: Active Protocol: Document 02/10/18 16:07 EA (Rec: 02/10/18 16:31 EA [id number]) Special Tests Lumbar Spine Special Tests Other- 2 Test Results + piriformis test Other- 1 Test Results + sacral compression Straight Leg Raise Test Results - Knee Special Tests Pepe's Test Test Results Tight Left ITB Neural Special Tests- Lower Body Femoral Nerve Tension Test Results - PT-OP-M Strength Start: 02/10/18 16:06 Freq: Status: Active Protocol: Document 02/10/18 16:07 EA (Rec: 02/10/18 16:31 EA [id number]) Trunk Strength Trunk Manual Muscle Testing Flexion 4 Good Extension 4 Good Rotation Left 4 Good Rotation Right 4 Good Lateral Flexion Left 4- Good- Lateral Flexion Right 4- Good- Knee Strength Knee Manual Muscle Testing Right Flexion (S2) 5 Normal Extension (L3) 5 Normal Left Flexion (S2) 4- Good- Extension (L3) 4 Good Ankle/Foot Strength Ankle and Foot Manual Muscle Testing Left Dorsiflexion (L4) 4- Good- Plantarflexion (S1) 4+ Good+ Inversion 5 Normal Eversion (S1) 5 Normal PT-OP-Q Treatments Start: 02/10/18 16:06 Freq: Status: Active Protocol: Document 03/23/18 15:04 EA (Rec: 03/23/18 15:10 EA [id number]) Cardio Equipment Recumbent Bicycle Duration (Minutes) 5 Resistance 4 Other warm up Therapeutic Exercises Supine Exercises 5 Supine Exercise Name Leg ERot stretch Reps/Minutes x 15SH x 2 4 Supine Exercise Name TA with hip AB & isometric hip AD Resistance T-Band Equipment Used Lev 1 Reps/Minutes 8 1 Supine Exercise Name Piriformis stretch: Long sit & supine Side bilateral Reps/Minutes 3 Comments in supine/prone Sidelying Exercises 2 Sidelying Exercise Name ITB stretch Side bilateral Reps/Minutes x 30SH x 2 reps 1 Sidelying Exercise Name Foam roller to ITB Reverse Clam Shell Sidelying Exercise Name Hip IR Side bilateral Manual Therapy Treatment Soft Tissue Mobilization 1 Body Location Pralumbars upper gluteals; hip ER Left side Mobilization Type Strumming Sustained Pressure Trigger Point Release Intensity/Depth Moderate Body Position Prone PT-OP-R Modalities Start: 02/10/18 16:06 Freq: Status: Active Protocol: Document 03/23/18 15:10 EA (Rec: 03/23/18 15:10 EA [id number]) Electric Stimulation Electric Stimulation Interferential Current (IFC) Body Location Left paralumbars, Upper gluteals and periformis Duration (Minutes) 15 Intensity 12 Combined With Heat/Cold Hot Pack PT-OP-T Assessment and Plan Start: 02/10/18 16:06 Freq: Status: Active Protocol: Document 03/23/18 15:04 EA (Rec: 03/23/18 15:10 JIM [id number]) Physical Therapy Assessment Assessment Summary Assessment Decreased symptoms after manual PT. Patient is progressing well. Physical Therapy Plan Next Visit Focus/Plan Next Note Type Treatment Note Next Visit Plan Cont with current plan.
--- NOTE | 2018-03-30 16:05 | PT.OTN ---
Current Diagnoses Low back pain (03/30/18) Pain in left leg (03/30/18) Pain in right foot (03/30/18) Physical Therapy Treatment Note PT-OP-A Visit Information Start: 02/10/18 16:06 Freq: Status: Active Protocol: Document 03/30/18 15:09 EA (Rec: 03/30/18 15:14 EA [id number]) Out-Patient Physical Therapy Visit Information Visit Information Visit Type Treatment Note Visit Start Time 14:30 Visit Stop Time 15:20 Total Visit Minutes 53 Visit Number 6 Number of CANE FLUME WATCHMAN Visits 0 PT-OP-B Current Condition Start: 02/10/18 16:06 Freq: Status: Active Protocol: Document 02/10/18 16:07 EA (Rec: 02/10/18 16:31 EA [id number]) Current Condition History of Current Condition Onset Date 9 months ago Current Complaints Left post hip, thigh and calf radiating pain History of Current Condition Patient reports left LE condition started 1 year ago with no known injury or surgical history; states it occurs gradually. Pt reports condition starts to aggravates in the past weeks and intensifies more in sitting position; states it improves but not completely disappears upon standing and walking. However, long standing and walking aggravates the condition as well. X-rays to lumbar spine reveals early DDD . 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 Functional Limitations- Work/School Limited sitting tolerance. Functional Limitations- Recreation/ unable Hobbies PT-OP-C Subjective Start: 02/10/18 16:06 Freq: Status: Active Protocol: Document 03/30/18 15:09 EA (Rec: 03/30/18 15:14 EA [id number]) OP-PT Subjective Patient Comments Patient Comments Pt reports hip/thigh and leg pain is improving much; states able to stand and walk better and is aware of foot allignment most of the time. Patient Reported Progress Improving PT-OP-F Manual Assessment Start: 02/10/18 16:06 Freq: Status: Active Protocol: Document 02/10/18 16:07 EA (Rec: 02/10/18 16:31 EA [id number]) Manual Assessments Soft Tissue Assessment Soft Tissue Mobility Assessment Left piriformis, quads, hip flexors Joint Mobility Assessment Joint Mobility Assessment WFL PT-OP-G Mobility & Gait Start: 02/10/18 16:06 Freq: Status: Active Protocol: Document 02/10/18 16:07 EA (Rec: 02/10/18 16:31 EA [id number]) OP Gait Assessment Gait Gait Assistance Required: Independent Able to Maintain Weight Bearing Status Yes During Gait Gait Deviations General Gait Pattern Antalgic Comments Gait Comments Increased left foot out PT-OP-J Posture/Palpation/Skin Start: 02/10/18 16:06 Freq: Status: Active Protocol: Document 02/10/18 16:07 EA (Rec: 02/10/18 16:31 EA [id number]) Posture Evaluation Position Standing Hip Posture (L) Externally Rotated Patellar Posture (L) Laterally Tilted Palpation Assessment Location One Palpation Location Left upper gluteals, hip E- rotators, ITB Palpation Findings Tenderness PT-OP-K Range of Motion Start: 02/10/18 16:06 Freq: Status: Active Protocol: Document 02/10/18 16:07 EA (Rec: 02/10/18 16:31 EA [id number]) Lumbar Spine Range of Motion Lumbar Spine Active Percentage Testing Position standing Flexion 80 Extension 80 Rotation Left 85 Rotation Right 85 Lateral Flexion Left 70 Lateral Flexion Right 75 ROM Limitations Soft Tissue Tightness Pain Hip Goniometric Range of Motion Hip Measured in Degrees Left Active Hip ROM WFL Yes Internal Rotation 25 Hip ROM Limitations Hip ROM Limitations Soft Tissue Tightness Pain Knee Goniometric Range of Motion Knee Measured in Degrees Left Knee ROM WFL Yes PT-OP-L Special Tests Start: 02/10/18 16:06 Freq: Status: Active Protocol: Document 02/10/18 16:07 EA (Rec: 02/10/18 16:31 EA [id number]) Special Tests Lumbar Spine Special Tests Other- 2 Test Results + piriformis test Other- 1 Test Results + sacral compression Straight Leg Raise Test Results - Knee Special Tests Pepe's Test Test Results Tight Left ITB Neural Special Tests- Lower Body Femoral Nerve Tension Test Results - PT-OP-M Strength Start: 02/10/18 16:06 Freq: Status: Active Protocol: Document 02/10/18 16:07 EA (Rec: 02/10/18 16:31 EA [id number]) Trunk Strength Trunk Manual Muscle Testing Flexion 4 Good Extension 4 Good Rotation Left 4 Good Rotation Right 4 Good Lateral Flexion Left 4- Good- Lateral Flexion Right 4- Good- Knee Strength Knee Manual Muscle Testing Right Flexion (S2) 5 Normal Extension (L3) 5 Normal Left Flexion (S2) 4- Good- Extension (L3) 4 Good Ankle/Foot Strength Ankle and Foot Manual Muscle Testing Left Dorsiflexion (L4) 4- Good- Plantarflexion (S1) 4+ Good+ Inversion 5 Normal Eversion (S1) 5 Normal PT-OP-Q Treatments Start: 02/10/18 16:06 Freq: Status: Active Protocol: Document 03/30/18 15:09 EA (Rec: 03/30/18 15:14 EA [id number]) Cardio Equipment Recumbent Bicycle Duration (Minutes) 5 Resistance 4 Other warm up Therapeutic Exercises Supine Exercises 5 Supine Exercise Name Leg ERot stretch Reps/Minutes x 15SH x 2 1 Supine Exercise Name Piriformis stretch: Long sit & supine Side bilateral Reps/Minutes 3 Comments in supine/prone Sidelying Exercises 2 Sidelying Exercise Name ITB stretch Side bilateral Reps/Minutes x 30SH x 2 reps 1 Sidelying Exercise Name Foam roller to ITB Reverse Clam Shell Sidelying Exercise Name Hip IR Side bilateral Manual Therapy Treatment Soft Tissue Mobilization 1 Body Location Pralumbars upper gluteals; hip ER Left side Mobilization Type Strumming Sustained Pressure Trigger Point Release Intensity/Depth Moderate Body Position Prone PT-OP-R Modalities Start: 02/10/18 16:06 Freq: Status: Active Protocol: Document 03/30/18 15:09 EA (Rec: 03/30/18 15:14 EA [id number]) Electric Stimulation Electric Stimulation Interferential Current (IFC) Body Location Left paralumbars, Upper gluteals and periformis Duration (Minutes) 15 Intensity 12 Combined With Heat/Cold Hot Pack Ultrasound Therapy Treatment Left Posterior Lateral Hip Treatment Duration (minutes) 8 Frequency Setting (mHz) 1 Intensity Setting (w/cm2) 1.5 PT-OP-T Assessment and Plan Start: 02/10/18 16:06 Freq: Status: Active Protocol: Document 03/30/18 15:09 JIM (Rec: 03/30/18 15:14 EA [id number]) Physical Therapy Assessment Assessment Summary Assessment Improved hip mobility and gait with less discomfort noted during manual PT. Patient is progressing well. Physical Therapy Plan Next Visit Focus/Plan Next Note Type Treatment Note Next Visit Plan Cont with current plan. Advance as tolerated.
--- NOTE | 2018-04-06 16:07 | PT.OTN ---
Current Diagnoses Low back pain (04/06/18) Pain in left leg (04/06/18) Pain in right foot (04/06/18) Physical Therapy Treatment Note PT-OP-A Visit Information Start: 02/10/18 16:06 Freq: Status: Active Protocol: Document 04/06/18 15:11 EA (Rec: 04/06/18 15:15 EA [id number]) Out-Patient Physical Therapy Visit Information Visit Information Visit Type Treatment Note Visit Note Pt is late today Visit Start Time 14:45 Visit Stop Time 15:28 Total Visit Minutes 38 Visit Number 7 Number of SUPERVISOR TOWER Visits 0 PT-OP-B Current Condition Start: 02/10/18 16:06 Freq: Status: Active Protocol: Document 02/10/18 16:07 EA (Rec: 02/10/18 16:31 EA [id number]) Current Condition History of Current Condition Onset Date 9 months ago Current Complaints Left post hip, thigh and calf radiating pain History of Current Condition Patient reports left LE condition started 1 year ago with no known injury or surgical history; states it occurs gradually. Pt reports condition starts to aggravates in the past weeks and intensifies more in sitting position; states it improves but not completely disappears upon standing and walking. However, long standing and walking aggravates the condition as well. X-rays to lumbar spine reveals early DDD . 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 Functional Limitations- Work/School Limited sitting tolerance. Functional Limitations- Recreation/ unable Hobbies PT-OP-C Subjective Start: 02/10/18 16:06 Freq: Status: Active Protocol: Document 04/06/18 15:11 EA (Rec: 04/06/18 15:15 EA [id number]) OP-PT Subjective Patient Comments Patient Comments Pt reports left hip is much feeling better now and is consistent with HEP. Patient Reported Progress Improving PT-OP-F Manual Assessment Start: 02/10/18 16:06 Freq: Status: Active Protocol: Document 02/10/18 16:07 EA (Rec: 02/10/18 16:31 EA [id number]) Manual Assessments Soft Tissue Assessment Soft Tissue Mobility Assessment Left piriformis, quads, hip flexors Joint Mobility Assessment Joint Mobility Assessment WFL PT-OP-G Mobility & Gait Start: 02/10/18 16:06 Freq: Status: Active Protocol: Document 02/10/18 16:07 EA (Rec: 02/10/18 16:31 EA [id number]) OP Gait Assessment Gait Gait Assistance Required: Independent Able to Maintain Weight Bearing Status Yes During Gait Gait Deviations General Gait Pattern Antalgic Comments Gait Comments Increased left foot out PT-OP-J Posture/Palpation/Skin Start: 02/10/18 16:06 Freq: Status: Active Protocol: Document 02/10/18 16:07 EA (Rec: 02/10/18 16:31 EA [id number]) Posture Evaluation Position Standing Hip Posture (L) Externally Rotated Patellar Posture (L) Laterally Tilted Palpation Assessment Location One Palpation Location Left upper gluteals, hip E- rotators, ITB Palpation Findings Tenderness PT-OP-K Range of Motion Start: 02/10/18 16:06 Freq: Status: Active Protocol: Document 02/10/18 16:07 EA (Rec: 02/10/18 16:31 EA [id number]) Lumbar Spine Range of Motion Lumbar Spine Active Percentage Testing Position standing Flexion 80 Extension 80 Rotation Left 85 Rotation Right 85 Lateral Flexion Left 70 Lateral Flexion Right 75 ROM Limitations Soft Tissue Tightness Pain Hip Goniometric Range of Motion Hip Measured in Degrees Left Active Hip ROM WFL Yes Internal Rotation 25 Hip ROM Limitations Hip ROM Limitations Soft Tissue Tightness Pain Knee Goniometric Range of Motion Knee Measured in Degrees Left Knee ROM WFL Yes PT-OP-L Special Tests Start: 02/10/18 16:06 Freq: Status: Active Protocol: Document 02/10/18 16:07 EA (Rec: 02/10/18 16:31 EA [id number]) Special Tests Lumbar Spine Special Tests Other- 2 Test Results + piriformis test Other- 1 Test Results + sacral compression Straight Leg Raise Test Results - Knee Special Tests Pepe's Test Test Results Tight Left ITB Neural Special Tests- Lower Body Femoral Nerve Tension Test Results - PT-OP-M Strength Start: 02/10/18 16:06 Freq: Status: Active Protocol: Document 02/10/18 16:07 EA (Rec: 02/10/18 16:31 EA [id number]) Trunk Strength Trunk Manual Muscle Testing Flexion 4 Good Extension 4 Good Rotation Left 4 Good Rotation Right 4 Good Lateral Flexion Left 4- Good- Lateral Flexion Right 4- Good- Knee Strength Knee Manual Muscle Testing Right Flexion (S2) 5 Normal Extension (L3) 5 Normal Left Flexion (S2) 4- Good- Extension (L3) 4 Good Ankle/Foot Strength Ankle and Foot Manual Muscle Testing Left Dorsiflexion (L4) 4- Good- Plantarflexion (S1) 4+ Good+ Inversion 5 Normal Eversion (S1) 5 Normal PT-OP-Q Treatments Start: 02/10/18 16:06 Freq: Status: Active Protocol: Document 04/06/18 15:11 EA (Rec: 04/06/18 15:15 EA [id number]) Manual Therapy Treatment Soft Tissue Mobilization 1 Body Location Pralumbars upper gluteals; hip ER Left side Mobilization Type Strumming Sustained Pressure Trigger Point Release Intensity/Depth Moderate Body Position Prone PT-OP-R Modalities Start: 02/10/18 16:06 Freq: Status: Active Protocol: Document 04/06/18 15:11 EA (Rec: 04/06/18 15:15 EA [id number]) Electric Stimulation Electric Stimulation Interferential Current (IFC) Body Location Left paralumbars, Upper gluteals and periformis Duration (Minutes) 15 Intensity 12 Combined With Heat/Cold Hot Pack Ultrasound Therapy Treatment Left Posterior Lateral Hip Treatment Duration (minutes) 8 Frequency Setting (mHz) 1 Intensity Setting (w/cm2) 1.5 PT-OP-T Assessment and Plan Start: 02/10/18 16:06 Freq: Status: Active Protocol: Document 04/06/18 15:11 EA (Rec: 04/06/18 15:15 EA [id number]) Physical Therapy Assessment Assessment Summary Assessment Pt exhibits improved gait and with very less symptoms after session. Overall patient is progressing well. See patient after two weeks and discharge patient if no more complaint. Physical Therapy Plan Next Visit Focus/Plan Next Note Type Treatment Note Next Visit Plan Discharge patient as necessary .
--- NOTE | 2018-05-25 15:31 | PT.OPDS ---
Current Diagnoses Low back pain (04/06/18) Pain in left leg (04/06/18) Pain in right foot (04/06/18) Provider Visit Care Team Role Provider Type Alla Charles PA-C Attending Provider Advanced Prep Manager Family Provider Primary Care Provider Specialty: Medical Address: [address] [place] [address], [id number] Email: [email or web address] Visit Number Visit Number 7 Discharge Summary PT-OP-B Current Condition Start: 02/10/18 16:06 Freq: Status: Active Protocol: Document 02/10/18 16:07 EA (Rec: 02/10/18 16:31 EA [id number]) Current Condition History of Current Condition Onset Date 9 months ago Current Complaints Left post hip, thigh and calf radiating pain History of Current Condition Patient reports left LE condition started 1 year ago with no known injury or surgical history; states it occurs gradually. Pt reports condition starts to aggravates in the past weeks and intensifies more in sitting position; states it improves but not completely disappears upon standing and walking. However, long standing and walking aggravates the condition as well. X-rays to lumbar spine reveals early DDD . Prior Treatments and Tests None identified Future Testing and Treatments Planned None Treatment Goals Patient/Caregiver Goals Patient wanst to eliminate pain Prior Functional Status Baseline Function- ADL's Independent Baseline Function- Mobility Independent Baseline Function- Gait Normal indep Baseline Function- Work/School Work as H[employer] with no limitation in any position Baseline Function- Recreation/Hobbies Run 3 x /wk Current Functional Impairments (Reported) Functional Limitations- ADL's Indep with difficulty Functional Limitations- Mobility/Gait Indep with increasing pain with long distance amb. Functional Limitations- Work/School Limited sitting tolerance. Functional Limitations- Recreation/ unable Hobbies PT-OP-C Subjective Start: 02/10/18 16:06 Freq: Status: Active Protocol: Document 05/25/18 15:27 EA (Rec: 06/15/18 08:31 EA [id number]) OP-PT Subjective Patient Comments Patient Comments Pt visited the clinic today as her daughter is undergoing PT ; pt reports she would like to be discharge to PT as she feels improved. Patient Reported Progress Improving PT-OP-F Manual Assessment Start: 02/10/18 16:06 Freq: Status: Active Protocol: Document 02/10/18 16:07 EA (Rec: 02/10/18 16:31 EA [id number]) Manual Assessments Soft Tissue Assessment Soft Tissue Mobility Assessment Left piriformis, quads, hip flexors Joint Mobility Assessment Joint Mobility Assessment WFL PT-OP-G Mobility & Gait Start: 02/10/18 16:06 Freq: Status: Active Protocol: Document 02/10/18 16:07 EA (Rec: 02/10/18 16:31 EA [id number]) OP Gait Assessment Gait Gait Assistance Required: Independent Able to Maintain Weight Bearing Status Yes During Gait Gait Deviations General Gait Pattern Antalgic Comments Gait Comments Increased left foot out PT-OP-J Posture/Palpation/Skin Start: 02/10/18 16:06 Freq: Status: Active Protocol: Document 02/10/18 16:07 EA (Rec: 02/10/18 16:31 EA [id number]) Posture Evaluation Position Standing Hip Posture (L) Externally Rotated Patellar Posture (L) Laterally Tilted Palpation Assessment Location One Palpation Location Left upper gluteals, hip E- rotators, ITB Palpation Findings Tenderness PT-OP-K Range of Motion Start: 02/10/18 16:06 Freq: Status: Active Protocol: Document 02/10/18 16:07 EA (Rec: 02/10/18 16:31 EA [id number]) Lumbar Spine Range of Motion Lumbar Spine Active Percentage Testing Position standing Flexion 80 Extension 80 Rotation Left 85 Rotation Right 85 Lateral Flexion Left 70 Lateral Flexion Right 75 ROM Limitations Soft Tissue Tightness Pain Hip Goniometric Range of Motion Hip Measured in Degrees Left Active Hip ROM WFL Yes Internal Rotation 25 Hip ROM Limitations Hip ROM Limitations Soft Tissue Tightness Pain Knee Goniometric Range of Motion Knee Measured in Degrees Left Knee ROM WFL Yes PT-OP-L Special Tests Start: 02/10/18 16:06 Freq: Status: Active Protocol: Document 02/10/18 16:07 EA (Rec: 02/10/18 16:31 EA [id number]) Special Tests Lumbar Spine Special Tests Other- 2 Test Results + piriformis test Other- 1 Test Results + sacral compression Straight Leg Raise Test Results - Knee Special Tests Pepe's Test Test Results Tight Left ITB Neural Special Tests- Lower Body Femoral Nerve Tension Test Results - PT-OP-M Strength Start: 02/10/18 16:06 Freq: Status: Active Protocol: Document 02/10/18 16:07 EA (Rec: 02/10/18 16:31 EA [id number]) Trunk Strength Trunk Manual Muscle Testing Flexion 4 Good Extension 4 Good Rotation Left 4 Good Rotation Right 4 Good Lateral Flexion Left 4- Good- Lateral Flexion Right 4- Good- Knee Strength Knee Manual Muscle Testing Right Flexion (S2) 5 Normal Extension (L3) 5 Normal Left Flexion (S2) 4- Good- Extension (L3) 4 Good Ankle/Foot Strength Ankle and Foot Manual Muscle Testing Left Dorsiflexion (L4) 4- Good- Plantarflexion (S1) 4+ Good+ Inversion 5 Normal Eversion (S1) 5 Normal PT-OP-T Assessment and Plan Start: 02/10/18 16:06 Freq: Status: Active Protocol: Document 05/25/18 15:27 EA (Rec: 06/15/18 08:31 EA [id number]) Physical Therapy Assessment Assessment Summary Assessment Discharge to PT per patient request. Physical Therapy Plan Discharge Physical Therapy Discharge Reasons Patient Request
== END 2018-06-15 16:20 ==
LOC: PHYS 14:30
PROVIDERS: Family Provider Physician Assistant; PCP Physician Assistant; Visit Provider Physician Assistant
DX: M54.5 Low back pain (principal); M79.605 Pain in left leg; M79.671 Pain in right foot
CPT/HCPCS: 97010; 97014; 97035; 97110; 97140; 97161; 97530; 97535; G0283

== ENCOUNTER → 2018-05-11 14:00 | Outpatient (CLI) | payer OTHER, SELFPAY | PROVIDERS: Family Provider Physician Assistant; PCP Physician Assistant; Visit Provider Physician Assistant | DX: R52 Pain, unspecified (principal) | CPT/HCPCS: 87077; 87086; 87147; 87186 ==

== ENCOUNTER → 2018-06-11 08:35 | Outpatient (CLI) | payer OTHER, SELFPAY ==
[2018-06-11 10:18] LABS: Alanine Aminotransferase 31 IU/L (9-52); Albumin 4.4 g/dL (3.5-5.0); Albumin Globulin Ratio 1.4 (1.0-2.8); Alkaline Phosphatase 58 U/L (38-126); Aspartate Aminotransferase 25 IU/L (14-36); BUN Creatinine Ratio 23.3 (6-22); Bilirubin Total 1.6 mg/dL (0.2-1.3); Blood Urea Nitrogen 14 mg/dL (7-17); Calcium 8.7 mg/dL (8.4-10.2); Carbon Dioxide 26 mmol/L (22-32); Chloride 103 mmol/L (98-107); Cholesterol 201 mg/dL (140-199); Estimated Glomerular Filt Rate > 60.0 mL/min (>60); Globulin 3.2 g/dL (1.7-4.1); Glucose 96 mg/dL (70-100); HDL Cholesterol 52 mg/dL (40-60); HEMOLYSIS < 15 (0-50); LDL Cholesterol Calculated 131 mg/dL (<100); Potassium 3.7 mmol/L (3.4-5.1); Sodium 138 mmol/L (137-145); Total Protein 7.6 g/dL (6.3-8.2); Triglycerides 91 mg/dL (35-150)
== END ==
PROVIDERS: Family Provider Physician Assistant; PCP Physician Assistant; Visit Provider Physician Assistant
DX: E78.5 Hyperlipidemia, unspecified (principal)
CPT/HCPCS: 36415; 80053; 80061

== ENCOUNTER → 2018-08-13 10:20 | Outpatient (CLI) | payer OTHER, SELFPAY ==
--- NOTE | 2018-08-13 10:22 | DI.US.S_ITS ---
LIMITED ULTRASOUND OF RIGHT BREAST AND AXILLA: 08/13/2018 CLINICAL: 6 month follow-up of the right breast. Comparison is made to exams dated: 08/13/2018 mammogram, 02/22/2018 ultrasound, 02/22/2018 mammogram, 01/29/2018 mammogram, 01/07/2017 mammogram, and 11/21/2015 mammogram - [facility]. Ultrasound of the right breast 1 o'clock, and axilla regions was performed on the areas of interest. Deluca scale images of the real-time examination were reviewed. There is a stable cluster of microcysts in the right breast at 1 o'clock middle depth. There also is lymph node in the right axillary tail with a prominent fatty hilum which is decreased in size. IMPRESSION: PROBABLY BENIGN The stable cluster of microcysts in the right breast at 1 o'clock middle depth is probably benign. Follow-up mammogram and ultrasound in 6 months is recommended. The lymph node in the right axillary tail is decreased in size and is benign. This exam was interpreted at Station ID: [id number]. SUMMARY: The patient will be due for her bilateral mammogram at this time. Electronically Signed By: Kanika medina/:08/13/2018 16:18:45 letter sent: Followup Recommended Ultrasound BI-RADS: 3 Probably benign
--- NOTE | 2018-08-13 10:22 | DI.MG.S_ITS ---
UNILATERAL RIGHT DIGITAL DIAGNOSTIC MAMMOGRAM 3D/2D SHORT-TERM FOLLOW-UP: 08/13/2018 CLINICAL: Patient returns for a 6 month follow up of the right breast. Comparison is made to exams dated: 02/22/2018 mammogram, 01/29/2018 mammogram, and 01/07/2017 mammogram - [facility]. The tissue of right breast is heterogeneously dense. This may lower the sensitivity of mammography. There is a mass in the right breast at 3 o'clock anterior depth. This is less prominent than on the prior study. No other significant masses or calcifications are seen in the breast. IMPRESSION: INCOMPLETE: NEEDS ADDITIONAL IMAGING EVALUATION The mass in the right breast is indeterminate. A targeted ultrasound of the right breast is recommended and will be performed immediately following this exam. This exam was interpreted at Station ID: [id number]. NOTE: For mammograms, a report in lay terms will be sent to the patient. Approximately 15% of breast malignancies will not be visualized mammographically. In the management of a palpable breast mass, a negative mammogram must not discourage biopsy of a clinically suspicious lesion. Electronically Signed By: Kanika medina/:08/13/2018 11:03:35 ACR BI-RADS Category 0: Incomplete [id number]
== END ==
PROVIDERS: Family Provider Physician Assistant; PCP Physician Assistant; Visit Provider Physician Assistant
DX: R92.8 Other abnormal and inconclusive findings on diagnostic imaging of breast (principal); N63.12 Unspecified lump in the right breast, upper inner quadrant
CPT/HCPCS: 76642; 77065; G0279

== ENCOUNTER → 2019-02-22 12:28 | Outpatient (CLI) | payer OTHER, SELFPAY ==
--- NOTE | 2019-02-22 12:29 | DI.MG.S_ITS ---
BILATERAL DIGITAL DIAGNOSTIC MAMMOGRAM 3D/2D SHORT-TERM FOLLOW-UP: 02/22/2019 CLINICAL: Patient returns for 6 month follow up of right breast, due for bilateral exam. Comparison is made to exams dated: 08/13/2018 mammogram, 02/22/2018 mammogram, and 01/29/2018 mammogram - [facility]. The tissue of both breasts is heterogeneously dense. This may lower the sensitivity of mammography. There is an oval equal density focal asymmetry with an indistinct and circumscribed margin in the right breast at 1 o'clock middle depth. This is not significantly changed. No other significant masses, calcifications, or other findings are seen in either breast. IMPRESSION: INCOMPLETE: NEEDS ADDITIONAL IMAGING EVALUATION The oval equal density focal asymmetry in the right breast is indeterminate. An ultrasound is recommended. This exam was interpreted at Station ID: [id number]. NOTE: For mammograms, a report in lay terms will be sent to the patient. Approximately 15% of breast malignancies will not be visualized mammographically. In the management of a palpable breast mass, a negative mammogram must not discourage biopsy of a clinically suspicious lesion. Electronically Signed By: Carlin vega/jil:02/22/2019 13:36:02 ACR BI-RADS Category 0: Incomplete [id number]
--- NOTE | 2019-02-22 12:29 | DI.US.S_ITS ---
LIMITED ULTRASOUND OF RIGHT BREAST AND AXILLA: 02/22/2019 CLINICAL: 6 month follow-up. Comparison is made to exams dated: 02/22/2019 mammogram, 08/13/2018 ultrasound, 08/13/2018 mammogram, 02/22/2018 ultrasound, 02/22/2018 mammogram, and 01/29/2018 mammogram - [facility]. Color flow and real-time ultrasound of the right breast 1-2 o'clock, and axilla regions were performed on the areas of interest. There is a 0.9 cm x 0.9 cm x 0.4 cm cluster of oval micro cysts with a septated internal wall in the right breast at 1 o'clock posterior depth. This cluster of oval micro cysts is hypoechoic. These abnormalities are not significantly changed and correlates with mammography findings. Color flow imaging demonstrates that there is no vascularity present. There also is a 1.4 cm x 2.1 cm x 0.7 cm oval lymph node with a circumscribed margin in the right axillary tail. This oval lymph node is hypoechoic. This abnormality is not significantly changed. Color flow imaging demonstrates that there is no vascularity present. IMPRESSION: PROBABLY BENIGN The 0.9 cm x 0.9 cm x 0.4 cm cluster of oval micro cysts in the right breast at 1 o'clock posterior depth is probably benign. A follow-up ultrasound in 6 months is recommended. The 1.4 cm x 2.1 cm x 0.7 cm oval lymph node in the right axillary tail is probably benign. A follow-up ultrasound in 6 months is recommended. A follow-up ultrasound in 6 months is recommended to demonstrate stability. This exam was interpreted at Station ID: [id number]. Electronically Signed By: Carlin vega/jil:02/22/2019 14:33:38 letter sent: Followup Recommended Ultrasound BI-RADS: 3 Probably benign
== END ==
PROVIDERS: PCP Physician Assistant; Visit Provider Physician Assistant
DX: R92.8 Other abnormal and inconclusive findings on diagnostic imaging of breast (principal); N64.89 Other specified disorders of breast
CPT/HCPCS: 76642; 77066; G0279

== ENCOUNTER → 2019-06-06 08:05 | Outpatient (CLI) | payer OTHER, SELFPAY ==
[2019-06-06 09:16] LABS: Alanine Aminotransferase 27 IU/L (<35); Albumin 4.5 g/dL (3.5-5.0); Albumin Globulin Ratio 1.3 (1.0-2.8); Alkaline Phosphatase 65 U/L (38-126); Aspartate Aminotransferase 27 IU/L (14-36); Bilirubin Total 1.3 mg/dL (0.2-1.3); Blood Urea Nitrogen 15 mg/dL (7-17); Calcium 9.3 mg/dL (8.4-10.2); Carbon Dioxide 30 mmol/L (22-32); Chloride 102 mmol/L (98-107); Cholesterol 204 mg/dL (140-199); Estimated Glomerular Filt Rate > 60.0 mL/min (>60); Globulin 3.4 g/dL (1.7-4.1); Glucose 116 mg/dL (70-100); HDL Cholesterol 48 mg/dL (40-60); HEMOLYSIS < 15 (0-50); LDL Cholesterol Calculated 117 mg/dL (<100); Potassium 4.3 mmol/L (3.4-5.1); Sodium 140 mmol/L (137-145); Total Protein 7.9 g/dL (6.3-8.2); Triglycerides 197 mg/dL (35-150)
[2019-06-06 09:37] LABS: Thyroid Stimulating Hormone 1.59 uIU/mL (0.47-4.68)
== END ==
PROVIDERS: PCP Physician Assistant; Visit Provider Physician Assistant
DX: Z00.00 Encounter for general adult medical examination without abnormal findings (principal)
CPT/HCPCS: 36415; 80053; 80061; 84443

== ENCOUNTER 2019-07-16 02:03 | Emergency (ER) | payer OTHER, SELFPAY ==
[2019-07-16 02:33] VITALS: BP 150/73; PULSE 71; RESP 20; TEMP 36.7; O2SAT 99; BMI 24.4
[2019-07-16 03:30] LABS: Alanine Aminotransferase 27 IU/L (<35); Albumin 4.5 g/dL (3.5-5.0); Albumin Globulin Ratio 1.4 (1.0-2.8); Alkaline Phosphatase 64 U/L (38-126); Aspartate Aminotransferase 29 IU/L (14-36); BUN Creatinine Ratio 28.3 (6-22); Blood Urea Nitrogen 17 mg/dL (7-17); Calcium 9.1 mg/dL (8.4-10.2); Carbon Dioxide 29 mmol/L (22-32); Chloride 104 mmol/L (98-107); Estimated Glomerular Filt Rate > 60.0 mL/min (>60); Globulin 3.3 g/dL (1.7-4.1); Glucose 131 mg/dL (70-100); HEMOLYSIS < 15 (0-50); Lipase 60 U/L (23-300); Potassium 3.6 mmol/L (3.4-5.1); Sodium 139 mmol/L (137-145); Total Protein 7.8 g/dL (6.3-8.2)
[2019-07-16 03:34] LABS: Add Manual Diff / Slide Review NO; Basophils Absolute Auto 0 /uL (0-100); Basophils Percent Auto 0.3 % (0-2); Eosinophils Absolute Auto 0 /uL (0-450); Eosinophils Percent Auto 0.3 % (2-4); Hematocrit 40.1 % (36-46); Hemoglobin 13.9 g/dL (12.0-16.0); Lymphocytes Absolute Auto 900 /uL (1100-4500); Lymphocytes Percent Auto 6.7 % (25-40); Mean Corpuscular HGB Conc 34.6 % (30-36); Mean Corpuscular Hemoglobin 29.3 PG (26-34); Mean Corpuscular Volume 84.7 fL (80-100); Monocytes Absolute Auto 500 /uL (0-900); Monocytes Percent Auto 3.5 % (3-14); Neutrophils Absolute Auto 11700 /uL (1500-7000); Neutrophils Percent Auto 89.2 % (50-75); Platelet Count 291 X10^3/uL (150-400); Red Blood Cell Count 4.74 X10^6/uL (4.0-5.2); Red Cell Distribution Width 13.7 % (11.6-14.8); White Blood Cell Count 13.1 X10^3/uL (4.5-11.0)
--- NOTE | 2019-07-16 05:10 | ED_ITS ---
HPI - Abdominal Pain General Chief Complaint: Abdominal Pain Stated Complaint: right side back pain/vomiting Time Seen by Provider: 07/16/19 02:08 Source: patient Mode of arrival: Ambulatory Limitations: no limitations History of Present Illness HPI narrative: 49-year-old female former smoker with history of asthma presents with a chief complaint right-sided abdominal pain with radiation into her back which started suddenly earlier in the day. She states it is worse when she moves and improves with rest. She has associated nausea and vomiting but denies any fever or chills. She denies any recent travel. She denies any chest pain or shortness of breath. She denies dysuria, frequency or urgency. She denies any vaginal bleeding or discharge MD complaint: flank pain Onset (ago): hour(s) Pain Consistency: constant Location: RLQ Severity: moderate Quality: stabbing Radiation: R flank Relieving factors: nothing Exacerbating factors: nothing Related Data Previous Rx's Medication Instructions Recorded albuterol sulfate 90 mcg/actuation 2 puff INHALATION Q4-6HP PRN #1 inh 09/21/18 aerosol inhaler nystatin 100,000 unit/gram topical 1 applictn TOP TID PRN #60 gram 04/20/19 powder cephalexin [Keflex] 500 mg PO QID 7 Days #28 cap 07/16/19 hydrocodone-acetaminophen 1 tab PO Q4-6H PRN #10 tab 07/16/19 ketorolac 10 mg PO Q6H PRN #14 tab 07/16/19 ondansetron 4 mg PO TID-QID PRN #10 tab 07/16/19 tamsulosin [Flomax] 0.4 mg PO DAILY #10 cap 07/16/19 Allergies Allergy/AdvReac Type Severity Reaction Status Date / Time No Known Drug Allergies Allergy Verified 04/20/19 14:12 Review of Systems Constitutional Constitutional: Denies chills, Denies fatigue, Denies fever(s), Denies frequent falls, Denies lethargy and Denies weakness Eyes Eyes: Denies change in vision, Denies eye discharge, Denies irritation and De nies loss of vision ENT Ears, Nose, Mouth, and Throat: Denies change in voice, Denies dizziness, Denies neck pain, Denies sore throat and Denies throat swelling Cardiovascular Cardiovascular: Denies chest pain, Denies irregular heart rhythm, Denies lightheadedness, Denies palpitations, Denies dyspnea, Denies dyspnea on exertion and Denies orthopnea Respiratory Respiratory: Denies cough, Denies dyspnea, Denies dyspnea on exertion and Denies wheezing Gastrointestinal Gastrointestinal: Denies abdominal pain, Denies change in bowel habits, Denies diarrhea, Denies nausea and Denies vomiting Genitourinary Genitourinary: Denies hematuria, Reports flank pain, Denies urinary incontinence and Denies urinary urgency Musculoskeletal Musculoskeletal: Denies back pain, Denies muscle weakness, Denies neck pain, De nies numbness and Denies tingling Integumentary/Breasts Skin/Breast: Denies pruritus, Denies erythema, Denies rash and Denies wounds Neurologic Neurologic: Denies behavioral changes, Denies confusion, Denies dizziness, Denies frequent falls, Denies loss of vision, Denies numbness, Denies tingling and Denies weakness Psychiatric Psychiatric: Denies anxiety, Denies behavioral changes, Denies confusion, Denies depression, Denies homicidal ideation and Denies suicidal ideation Endocrine Endocrine: Denies fatigue, Denies flushing and Denies palpitations Hematologic/Lymphatic Hematologic/Lymphatic: Denies easy bruising Allergic/Immunologic Allergic/Immunologic: Denies urticaria, Denies throat swelling and Denies wheezing Patient History Medical History Asthma (Chronic) Surgical History S/P cryotherapy of skin lesion (Resolved 1998) Status post delivery (2003) Status post delivery (2006) Family History Father Diabetes mellitus Coronary artery disease Smoker Mother Age: 70 History of epilepsy Grandmother Malignant neoplasm of cervix, unspecified site Sister Migraines Social History Smoking Status: Former smoker Tobacco: How many years used: 10 second hand exposure: No alcohol intake: current (occasionally) substance use type: does not use Smoking Status: Former smoker alcohol intake frequency: 0-2 drinks per day Alcohol type: beer and wine Substance Use Type: does not use Exam Narrative Exam Narrative: GENERAL: [49] year old patient appears stated age. Well- nourished, well-developed patient, in mild distress. Rubbing her right flank HEAD: Atraumatic. Normocephalic. EYES: Pupils equal round and reactive. Extraocular motions intact. No scleral icterus. No injection or drainage. ENT: Nose without bleeding, purulent drainage. Throat without erythema, tonsillar hypertrophy or exudate. Airway patent. NECK: Trachea midline. Non tender CARDIOVASCULAR: Regular rate and rhythm without murmurs, gallops, or rubs. RESPIRATORY: Clear to auscultation. Breath sounds equal bilaterally. No wheezes, rales, or rhonchi. GASTROINTESTINAL: Abdomen soft, non-tender, nondistended. EXTREMITIES: No edema or joint tenderness. BACK: Nontender without deformity or crepitance. No flank tenderness. NEURO: AOx3. SKIN: No rash or erythema of visible areas Initial Vital Signs Initial Vital Signs: Vital Signs Temperature 98.1 F 07/16/19 02:33 Pulse Rate 71 07/16/19 02:33 Respiratory Rate 20 07/16/19 02:33 Blood Pressure 150/73 H 07/16/19 02:33 Pulse Oximetry 99 07/16/19 02:33 Course Orders Ordered: Discontinued Medications Hydrocodone Bitart/Acetaminophen (Vicodin 5/325 Prepack) 1 bottle MISC SEEINSTR ONE Stop: 07/16/19 06:30 Last Admin: 07/16/19 06:35 Dose: 1 bottle Documented by: FIORELLA Sodium Chloride (Normal Saline 0.9%) 1,000 mls @ 1,000 mls/hr IV BOLUS ONE Stop: 07/16/19 06:29 Last Admin: 07/16/19 06:02 Dose: 1,000 mls/hr Documented by: MELVIN Ketorolac Tromethamine (Toradol) 15 mg IV NOW ONE Stop: 07/16/19 05:31 Last Admin: 07/16/19 05:37 Dose: 15 mg Documented by: MELVIN Ondansetron HCl (Zofran) 4 mg IV Q4HR PRN PRN Reason: Nausea And Vomiting Last Admin: 07/16/19 05:36 Dose: 4 mg Documented by: MELVIN Ondansetron HCl (Zofran Odt Prepack) 1 bottle MISC SEEINSTR ONE Stop: 03/07/20 06:30 Last Admin: 07/16/19 06:35 Dose: 1 bottle Documented by: HGWILLA Vital Signs Vital signs: Vital Signs - 8 hr 07/16/19 02:33 Temperature 98.1 F Pulse Rate 71 Respiratory Rate 20 Blood Pressure 150/73 H Pulse Oximetry 99 MDM - Abdominal Pain Lab Data Result diagrams: 07/16/19 03:10 07/16/19 03:10 Labs: Lab Results 07/16/19 07/16/19 07/16/19 Range/Units 03:10 03:10 03:25 WBC 13.1 H (4.5-11.0) X10^3/uL RBC 4.74 (4.0-5.2) X10^6/uL Hgb 13.9 (12.0-16.0) g/dL Hct 40.1 (36-46) % MCV 84.7 (80-100) fL MCH 29.3 (26-34) PG MCHC 34.6 (30-36) % RDW 13.7 (11.6-14.8) % Plt Count 291 (150-400) X10^3/uL Neut % (Auto) 89.2 H (50-75) % Lymph % (Auto) 6.7 L (25-40) % Moore % (Auto) 3.5 (3-14) % Eos % (Auto) 0.3 L (2-4) % Baso % (Auto) 0.3 (0-2) % Neut # (Auto) 30678 H (4151-1129) /uL Lymph # (Auto) 900 L (5458-4933) /uL Moore # (Auto) 500 (0-900) /uL Eos # (Auto) 0 (0-450) /uL Baso # (Auto) 0 (0-100) /uL Sodium 139 (137-145) mmol/L Potassium 3.6 (3.4-5.1) mmol/L Chloride 104 (98-107) mmol/L Carbon Dioxide 29 (22-32) mmol/L BUN 17 (7-17) mg/dL Creatinine 0.60 (0.52-1.04) mg/dL Estimated GFR > 60.0 (>60) mL/min BUN/Creatinine Ratio 28.3 H (6-22) Glucose 131 H (70-100) mg/dL Calcium 9.1 (8.4-10.2) mg/dL Total Bilirubin 1.0 (0.2-1.3) mg/dL AST 29 (14-36) IU/L ALT 27 (<35) IU/L Alkaline Phosphatase 64 (38-126) U/L Total Protein 7.8 (6.3-8.2) g/dL Albumin 4.5 (3.5-5.0) g/dL Globulin 3.3 (1.7-4.1) g/dL Albumin/Globulin Ratio 1.4 (1.0-2.8) Lipase 60 (23-300) U/L Urine Color Yellow Urine Appearance Clear Urine pH 7.0 (4.5-8.0) Ur Specific [place] 1.015 (1.000-1.035) Urine Protein Negative (Negative) Urine Glucose (UA) Negative (Negative) g/dL Urine Ketones Negative (NEGATIVE) Urine Occult Blood 1+ H (Negative) Urine Nitrate Negative (Negative) Urine Bilirubin Negative (NEGATIVE) Urine Urobilinogen 0.2 (0.2) E.U./dL Ur Leukocyte Esterase Negative (NEGATIVE) Urine RBC 0-1/hpf (0-5/HPF) Urine WBC None seen (0-5/HPF) Ur Squamous Epith Cells 1-5 /hpf (0-5/HPF) Urine Bacteria Few (2-10) H (None) Ur Culture Indicated? Cult not indicated Imaging Data CT scan - abdomen/pelvis: Radiologist's Impression: Chart Viewer Diagnostics DATE TYPE STATUS AUTHOR Hx 07/16/19 05:31 Kiemilia,Kanika 02/22/19 12:29 PachecoCarlin garvin 02/22/19 12:29 Carlin Pacheco 08/13/18 10:22 Kiviat,Kanika 08/13/18 10:22 Kiviat,Kanika 02/22/18 08:27 Kiviat,Kanika 02/22/18 08:27 Kiviat,Kanika 01/29/18 00:00 Kisilat,Kanika 01/22/18 09:42 Erick Nayak 09/18/17 11:56 Noe Merino Christina M 49, F0 1970 DEP ER, [facility] 152.4cm 56.699kg BMI: 24.4kg/m? Abdominal Pain Search Chart No Data to Display ONSET 01/01/12 07/31/16 07/16/19 06:45 Jonelle Velasquez 49 F [address] [address] [address] Scan Report Signed Patient: Jonelle Velasquez MMR#: [id number] : 1970Acct:[id number] Age/Sex: 49 / FDate of Service: 07/16/19 Loc: ED Accession Number: [id number] Procedure: CT kidney ureter bladder (KUB) Ordering Provider: Hernesto Priest D.O. PROCEDURE: CT KIDNEY URETER BLADDER (KUB) INDICATIONS: severe Right flank pain with radiation to groin TECHNIQUE: Noncontrast 5 mm thick sections acquired from the diaphragms to the symphysis. 5 mm thick coronal and sagittal reformats were then performed. For radiation dose reduction, the following was used: automated exposure control, adjustment of mA and/or kV according to patient size. COMPARISON: None. FINDINGS: Image quality: Excellent. Lung bases: Lung bases are clear. Heart size is normal. Urinary system: Both kidneys are normal size. There is a nonobstructing renal 7 mm left ureteral calculus. No right nephrolithiasis. There is mild right hydronephrosis and mild right hydroureter with periureteral fat stranding. A probable partially obstructing stone is present within the distal right ureter measuring 5 mm in diameter (series 2/image 67). No left hydronephrosis, hydroureter, or ureterolithiasis. The bladder is deco mpressed. No bladder stones. The uterus and ovaries are grossly unremarkable study. Other solid organs: Liver is normal in size. A circumscribed 8mm cystic lesion is present within the right hepatic lobe suggesting a small hepatic cyst. Gallbladder is unremarkable. Pancreas is normal in contours. Spleen is normal in size. No adrenal nodules. Peritoneum and bowel: Unenhanced bowel loops demonstrate normal wall thickness and caliber. The appendix is thin walled and gas filled. No free fluid or air. Nodes and vessels: No retroperitoneal or mesenteric adenopathy by size criteria. Aorta and inferior vena cava are normal in caliber. Abdominal wall: There is diastasis of the rectus abdominis musculature. Pelvis: No free pelvic fluid. No inguinal hernias or adenopathy. Bones: No suspicious bony lesions. No vertebral body compression fractures. IMPRESSION: 1. Right ureterolithiasis near the ureterovesicular junction with resultant mild hydroureter and hydronephrosis. 2. Nonobstructing nephrolithiasis. 3. Normal appendix. These findings are concordant with the overnight interpretation. Please note, no gallstones are visualized in the gallbladder as described on the overnight interpretation. Dictated by: Kanika Lara M.D. on 07/16/2019 at 7:57 Discharge Plan Departure Patient Disposition: Home Clinical Impression: Calculus of kidney Discharge Date/Time: 07/16/19 07:21 Instructions: DI for Kidney Stones Activity Restrictions/Additional Instructions: *You have been diagnosed with [acute right-sided kidney stone] *What to do: *Take medications as directed *Follow up with your primary care provider in 2-3 days, call for an appointment. Let them know you were seen in the Emergency Department and that we ask that you be seen in follow up *Return to ER if you should have any new, worsening or concerning symptoms Prescriptions: New tamsulosin [Flomax] 0.4 mg capsule 0.4 mg PO DAILY Qty: 10 RF: 0 hydrocodone-acetaminophen 5-325 mg tablet 1 tab PO Q4-6H PRN (Reason: pain) Qty: 10 RF: 0 ketorolac 10 mg tablet 10 mg PO Q6H PRN (Reason: pain) Qty: 14 RF: 0 cephalexin [Keflex] 500 mg capsule 500 mg PO QID 7 Days Qty: 28 RF: 0 ondansetron 4 mg tablet,disintegrating 4 mg PO TID-QID PRN (Reason: nausea and vomiting) Qty: 10 RF: 0 No Action albuterol sulfate [Proventil HFA] 90 mcg/actuation HFA aerosol inhaler 2 puff Inhalation Q4-6HP PRN (Reason: shortness of breath or wheezing) Qty: 1 RF: 3 nystatin 100,000 unit/gram powder 1 applictn TOP TID PRN (Reason: rash under breasts) Qty: 60 RF: 3
--- NOTE | 2019-07-16 05:31 | DI.CT.S_ITS ---
PROCEDURE: CT KIDNEY URETER BLADDER (KUB) INDICATIONS: severe Right flank pain with radiation to groin TECHNIQUE: Noncontrast 5 mm thick sections acquired from the diaphragms to the symphysis. 5 mm thick coronal and sagittal reformats were then performed. For radiation dose reduction, the following was used: automated exposure control, adjustment of mA and/or kV according to patient size. COMPARISON: None. FINDINGS: Image quality: Excellent. Lung bases: Lung bases are clear. Heart size is normal. Urinary system: Both kidneys are normal size. There is a nonobstructing renal 7 mm left ureteral calculus. No right nephrolithiasis. There is mild right hydronephrosis and mild right hydroureter with periureteral fat stranding. A probable partially obstructing stone is present within the distal right ureter measuring 5 mm in diameter (series 2/image 67). No left hydronephrosis, hydroureter, or ureterolithiasis. The bladder is decompressed. No bladder stones. The uterus and ovaries are grossly unremarkable study. Other solid organs: Liver is normal in size. A circumscribed 8mm cystic lesion is present within the right hepatic lobe suggesting a small hepatic cyst. Gallbladder is unremarkable. Pancreas is normal in contours. Spleen is normal in size. No adrenal nodules. Peritoneum and bowel: Unenhanced bowel loops demonstrate normal wall thickness and caliber. The appendix is thin walled and gas filled. No free fluid or air. Nodes and vessels: No retroperitoneal or mesenteric adenopathy by size criteria. Aorta and inferior vena cava are normal in caliber. Abdominal wall: There is diastasis of the rectus abdominis musculature. Pelvis: No free pelvic fluid. No inguinal hernias or adenopathy. Bones: No suspicious bony lesions. No vertebral body compression fractures. IMPRESSION: 1. Right ureterolithiasis near the ureterovesicular junction with resultant mild hydroureter and hydronephrosis. 2. Nonobstructing nephrolithiasis. 3. Normal appendix. These findings are concordant with the overnight interpretation. Please note, no gallstones are visualized in the gallbladder as described on the overnight interpretation. Dictated by: Kanika Lara M.D. on 07/16/2019 at 7:57 Approved by: Kanika Lara M.D. on 07/16/2019 at 8:03
[2019-07-16 05:33] LABS: WBC Urine None Seen (0-5/HPF)
[2019-07-16 05:34] LABS: Appearance Urine UA CLEAR; Bilirubin Urine UA NEGATIVE (NEGATIVE); Color Urine UA YELLOW; Glucose Urine UA NEGATIVE (Negative); Ketones Urine UA NEGATIVE (NEGATIVE); Leukocyte Esterase Urine UA NEGATIVE (NEGATIVE); Nitrite Urine UA NEGATIVE (Negative); Occult Blood Urine UA 1+ (Negative); Protein Urine UA NEGATIVE (Negative); Specific Gravity Urine UA 1.015 (1.000-1.035); Urobilinogen Urine UA 0.2 E.U./dL (0.2)
[2019-07-16] MEDS: ONDANSETRON 4 MG/2 ML INJ IV (05:36)
[2019-07-16 05:37] LABS: RBC Urine 0-1/HPF (0-5/HPF)
[2019-07-16] MEDS: KETOROLAC 60 MG/2 ML VIAL 15 MG IV (05:37)
[2019-07-16 05:39] LABS: Bacteria Urine Few (2-10); Culture Indicated Urine Cult Not Indicated; Squamous Epithelial Cell Urine 1-5 /HPF (0-5/HPF)
[2019-07-16] MEDS: SODIUM CHLORIDE 0.9% 1,000 ML 1000 ML IV (06:02)
[2019-07-16] MEDS: HYDROCODONE/ACET 5/325 PREPACK 1 BOTTLE MISC (06:35)
[2019-07-16] MEDS: ONDANSETRON 4 MG ODT PREPACK 1 BOTTLE MISC (06:35)
[2019-07-16 06:45] VITALS: BP 112/60; PULSE 70; RESP 15; O2SAT 96
--- NOTE | 2019-08-11 22:37 | PC.NURSE ---
Late Entry: 07/16/19714 Pt received 1000ml of Normal saline completed at 0710.
== END 2019-07-16 07:21 | disposition home or self-care (01) ==
PROVIDERS: Emergency Provider Emergency Medicine
DX: N20.0 Calculus of kidney (principal)
CPT/HCPCS: 36415; 74176; 80053; 81001; 83690; 85025; 96361; 96374; 96375; 99284; J1885; J2405

== ENCOUNTER 2019-07-29 09:32 | Day surgery (SDC) | payer OTHER, SELFPAY ==
[2019-07-29] VITALS (8 sets, daily range): BP systolic 98–125; BP diastolic 62–74; PULSE 63–80; RESP 13–16; TEMP 36.3–37.3; O2SAT 97–99; BMI 24.6
--- NOTE | 2019-07-29 10:41 | PM.PREOP ---
Pre-operative Note Interval Note History & Physical reviewed/Exam performed by Physician: Yes Changes to H&P: No H&P completed within 30 days and has changed as indicated here:: History and physical examination are unchanged from that scanned on file.
[2019-07-29] MEDS: LACTATED RINGERS 1,000 ML 42 ML IV (10:43)
[2019-07-29] MEDS: CEFAZOLIN 2 GM/100 ML FROZ.PIGGY IV (11:19)
--- NOTE | 2019-07-29 11:42 | SUR.OPER ---
Lithotomy on padded OR bed, head on pillow, arms secured on padded arm boards at <90 degrees abduction. Legs secured in padded yellow fins stirrups.
--- NOTE | 2019-07-29 11:50 | SUR.OPER ---
For Laser lithotripsy settings, duration, and laser fiber size info., refer to Holmium laser treatment record.
[2019-07-29] MEDS: BELLADONNA/OPIUM SUPPOSITORIES 1 EACH PR (11:55)
--- NOTE | 2019-07-29 12:09 | P.OP_ITS ---
Operative Date/Time/Diagnoses Date of procedure: 07/29/19 Time of procedure: 12:09 Pre-op diagnosis: 1. 5 mm obstructing right ureterovesical junction calculus. 2. Intractable right renal colic. Post-op diagnosis: same Procedure & Clinicians Procedure: 1. Cystoscopy and right ureteroscopic laser lithotripsy. Same procedure as scheduled: Yes Indications: 1. 5 mm obstructing right ureterovesical junction calculus. 2. Intractable right renal colic. Surgeon: Lary Harris Click Yes if Unassisted: Yes Anesthesia Type: General Operative Notes Findings: Urethra normal bladder urothelium normal throughout except over the proximal right ureteric ridge. This area was erythematous and swollen. The index calculus was encountered as expected and was subsequently fragmented and cleared using the laser lithotripsy fiber. Closure Type: not applicable Specimen(s): none sent Estimated Blood Loss (mL): 0 Blood products transfused: none Procedure in detail: The patient was positioned in supine and administered general anesthesia. She was then repositioned in semi-lithotomy the lower abdomen genitalia and groin were prepped and draped in sterile fashion. The 22 [place] panendoscope was then passed into the lower urinary tract with the findings as described above. A 0.35 guidewire was then advanced through the scope into the right collecting system under direct and fluoroscopic guidance. Next a 12 [place] Helenian x 4 cm length balloon dilating catheter was positioned across the right ureterovesical junction over the guidewire. The balloon was inflated to 18 atmospheres and held in position for 5 minutes. The balloon was then deflated and backloaded off the wire. The panendoscope was backloaded off the wire. The semi rigid ureteral scope was then introduced lower urinary tract then advanced into the right collecting system under direct fluoroscopic guidance. A 273 micron fiber was selected. All operating room personnel and patient were fitted with laser safety eyewear. Lithotripsy was then commenced with excellent fragmentation of the stone. Majority of its fragments were then for cleared of the ureteral lumen using hydrostatic and mechanical agitation. Intraoperative decision was to not leave a ureteral stent indwelling. The ureteral scope was then removed. The panendoscope was then reintroduced in the bladder contents drained. It was then removed a final time. The patient was then awakened in supine position and then transferred to [facility] and transported to recovery in stable condition. Complications: none Post-operative Condition: stable Disposition: PACU Plan for aftercare: 1. Discharge home today. 2. Schedule outpatient appointment my office in approximately 6 weeks with KUB and metabolic stone risk evaluation.
--- NOTE | 2019-07-29 13:28 | SUR.PHASEII ---
will notify surgeon of passing of 'pieces' of stone prior to d/c, check to see if 'pieces' will be sent to pathology
--- NOTE | 2019-07-29 13:52 | SUR.PHASEII ---
recieved orders from Dr. Harris to send RIGHT URETERAL STONE FRAGMENTto lab
[2019-08-12 12:04] LABS: Size 2x1
== END 2019-07-29 13:21 | disposition home or self-care (01) ==
PROVIDERS: PCP Physician Assistant; Referring Provider Physician Assistant; Visit Provider Specialist
PROC: (CPT 52356; principal; 2019-07-29 10:45)
DX: N20.1 Calculus of ureter (principal)
CPT/HCPCS: 52356; 76000; 82365; J0690; J1100; J1885; J2250; J2405; J2704; J3010

== ENCOUNTER → 2019-08-30 13:39 | Outpatient (CLI) | payer OTHER, SELFPAY ==
--- NOTE | 2019-08-30 13:41 | DI.US.S_ITS ---
ULTRASOUND OF RIGHT BREAST: 08/30/2019 CLINICAL: 6 month follow up ultrasound right breast. Comparison is made to exams dated: 02/22/2019 ultrasound, 02/22/2019 mammogram, 08/13/2018 ultrasound, 08/13/2018 mammogram, 02/22/2018 ultrasound, and 02/22/2018 mammogram - [facility]. Color flow and real-time ultrasound of the right breast were performed. Deluca scale images of the real-time examination were reviewed. There is a 0.8 cm x 0.7 cm x 0.9 cm lymph node in the right axillary tail is hypoechoic. This abnormality is decreased in size and less prominent, previously measuring 1.4cm x 2.0cm x 0.7cm. Color flow imaging demonstrates that there is no vascularity present. The previously described cluster of cysts in the right breast at 1:30 o'clock middle/posterior depth is no longer seen. IMPRESSION: PROBABLY BENIGN The 0.8 cm x 0.7 cm x 0.9 cm lymph node in the right axillary tail most likely is a lymph node and is probably benign. Previously seen cluster of cysts in the 1:30 o'clock position in the right breast is no longer visualized. A follow-up bilateral mammogram and a right ultrasound in 6 months is recommended to demonstrate stability. This exam was interpreted at Station ID: [id number]. Electronically Signed By: Parrish Jean M.D. at/:08/30/2019 16:20:21 letter sent: Followup Recommended Ultrasound BI-RADS: 3 Probably benign
== END ==
PROVIDERS: PCP Physician Assistant; Referring Provider Physician Assistant; Visit Provider Physician Assistant
DX: R92.8 Other abnormal and inconclusive findings on diagnostic imaging of breast (principal); N60.01 Solitary cyst of right breast; R59.0 Localized enlarged lymph nodes
CPT/HCPCS: 76642

== ENCOUNTER → 2019-09-08 08:13 | Outpatient (CLI) | payer OTHER, SELFPAY ==
--- NOTE | 2019-09-08 08:23 | DI.RAD.S_ITS ---
PROCEDURE: XR KUB INDICATIONS: KIDNEY STONES TECHNIQUE: One view of the abdomen acquired. COMPARISON: [facility], CT, CT KIDNEY URETER BLADDER (KUB), 07/16/2019, 5:40. FINDINGS: Surgical changes and devices: None. Bowel: Bowel gas pattern is normal. Soft tissues: The distal right ureter stone at the right UVJ seen on CT is no longer visualized on x-ray. There are couple stones in the inferior pole the left kidney measuring up to 4 mm. Small stones seen in the right kidney on CT are not well seen on radiograph. Visualized solid organ contours appear normal in size. Bones: No suspicious bony lesions. IMPRESSION: 1. The right distal ureteral stone at the UVJ is likely passed. 2. A couple of stones in the inferior pole of the right kidney. Dictated by: Ana Sheikh M.D. on 09/08/2019 at 9:05 Approved by: Ana Sheikh M.D. on 09/08/2019 at 9:12
[2019-09-08 10:37] LABS: Calcium 9.4 mg/dL (8.4-10.2); Uric Acid 4.6 mg/dL (2.5-6.2)
[2019-09-09 06:36] LABS: Parathyroid Hormone Int 17 pg/mL (15-65)
== END ==
PROVIDERS: Referring Provider Specialist; Visit Provider Specialist
DX: N20.0 Calculus of kidney (principal)
CPT/HCPCS: 36415; 74018; 82310; 83970; 84550

== ENCOUNTER → 2019-12-08 08:52 | Outpatient (CLI) | payer OTHER, SELFPAY ==
--- NOTE | 2019-12-08 08:54 | DI.RAD.S_ITS ---
PROCEDURE: XR KUB INDICATIONS: Kidney stones TECHNIQUE: One view of the abdomen acquired. COMPARISON: [facility], CR, XR KUB, 09/08/2019, 8:27. FINDINGS: Surgical changes and devices: None. Bowel: Bowel gas pattern is normal. Soft tissues: 2 subcentimeter calcifications are redemonstrated within the left mid abdomen unchanged from the study dated September 08, 2019. No other suspicious soft tissue calcifications noted. Bones: No suspicious bony lesions. IMPRESSION: Probable nonobstructive left nephrolithiasis stable from September 08, 2019. Dictated by: Kanika Lara M.D. on 12/08/2019 at 10:27 Approved by: Kanika Lara M.D. on 12/08/2019 at 10:32
[2019-12-08 09:39] LABS: Hematocrit 41.3 % (36-46); Mean Corpuscular HGB Conc 33.9 % (30-36); Mean Corpuscular Hemoglobin 29.2 PG (26-34); Platelet Count 247 X10^3/uL (150-400); Red Cell Distribution Width 13.5 % (11.6-14.8); White Blood Cell Count 7.6 X10^3/uL (4.5-11.0)
[2019-12-08 09:52] LABS: Alanine Aminotransferase 21 IU/L (<35); Albumin 4.2 g/dL (3.5-5.0); Albumin Globulin Ratio 1.5 (1.0-2.8); Alkaline Phosphatase 61 U/L (38-126); Aspartate Aminotransferase 23 IU/L (14-36); BUN Creatinine Ratio 22.2 (6-22); Bilirubin Total 1.2 mg/dL (0.2-1.3); Blood Urea Nitrogen 12 mg/dL (7-17); Calcium 9.2 mg/dL (8.4-10.2); Carbon Dioxide 27 mmol/L (22-32); Chloride 102 mmol/L (98-107); Cholesterol 189 mg/dL (140-199); Estimated Glomerular Filt Rate > 60.0 mL/min (>60); Globulin 2.8 g/dL (1.7-4.1); Glucose 107 mg/dL (70-100); HDL Cholesterol 64 mg/dL (40-60); HEMOLYSIS < 15 (0-50); LDL Cholesterol Calculated 100 mg/dL (<100); Potassium 3.9 mmol/L (3.4-5.1); Sodium 134 mmol/L (137-145); Triglycerides 126 mg/dL (35-150)
== END ==
PROVIDERS: PCP Nurse Practitioner Family; Referring Provider Specialist; Visit Provider Specialist
DX: N20.1 Calculus of ureter (principal); J45.909 Unspecified asthma, uncomplicated; E78.2 Mixed hyperlipidemia; Z13.6 Encounter for screening for cardiovascular disorders
CPT/HCPCS: 36415; 74018; 80053; 80061; 85027

== ENCOUNTER → 2020-01-05 08:50 | Outpatient (CLI) | payer OTHER, SELFPAY ==
--- NOTE | 2020-01-05 08:51 | DI.MRI.S_ITS ---
PROCEDURE: MR ANGIO HEAD WO CON INDICATIONS: Family history of intracranial arterial aneurysm TECHNIQUE: Noncontrast axial 3-D [id number] MR angiogram, with 3-dimensional maximum intensity projection (MIP) reformats of the internal carotid arteries and posterior circulation then performed. COMPARISON: None. FINDINGS: Image quality: Excellent. Anterior circulation: Intracranial internal carotid arteries demonstrate normal size and intraluminal flow signal. The flow within the paired anterior cerebral arteries is normal and symmetric. The flow within the middle cerebral arteries is normal and symmetric. The anterior communicating artery is seen. No stenoses, occlusions, or aneurysms. Posterior circulation: Visualized portions of the vertebral arteries demonstrate normal caliber, and join to form a normal appearing basilar artery. The flow within the posterior cerebral arteries is normal and symmetric. No stenoses, occlusions, or aneurysms. IMPRESSION: No intracranial aneurysm identified. Dictated by: Pineda Andrea M.D. on 01/05/2020 at 9:38 Approved by: Pineda Andrea M.D. on 01/05/2020 at 10:16
== END ==
PROVIDERS: PCP Nurse Practitioner Family; Referring Provider Nurse Practitioner Family; Visit Provider Nurse Practitioner Family
DX: Z13.89 Encounter for screening for other disorder (principal); Z82.49 Family history of ischemic heart disease and other diseases of the circulatory system
CPT/HCPCS: 70544

== ENCOUNTER → 2020-01-16 14:34 | Outpatient (CLI) | payer OTHER, SELFPAY ==
[2020-01-17 17:54] LABS: COVID19 Sendout Not Detected (Not Detect)
== END ==
PROVIDERS: PCP Nurse Practitioner Family; Visit Provider Nurse Practitioner
DX: Z11.59 Encounter for screening for other viral diseases (principal)
CPT/HCPCS: 87635

== ENCOUNTER 2020-01-19 12:26 | Day surgery (SDC) | payer OTHER, SELFPAY ==
[2020-01-19] MEDS: LACTATED RINGERS 1,000 ML 200 ML IV (12:53)
[2020-01-19 12:54] VITALS: BP 119/83; PULSE 91; RESP 16; TEMP 36.9; O2SAT 95; BMI 23.1
--- NOTE | 2020-01-19 13:31 | PM.HP.1 ---
History of Present Illness History of Present Illness Date Patient Seen: 01/19/20 Time Patient Seen: 13:31 Chief complaint: SCREENING COLONOSCOPY Narrative: The patient presents for colorectal sreening. They have never had any previous examination for such. No personal or family history of colon cancer. On further history denies any recent gastrointestinal symptoms. No nausea, vomiting, abdominal pain, loss of appetite, unexplained weight loss, change in bowel habits, diarrhea, constipation, melena, hematochezia, or bright red blood per rectum. Patient History Medical History Abnormal mammogram of right breast (Acute) Arthritis (Acute) Asthma (Chronic) Diastasis recti (Acute) Elevated glucose (Acute) Family history of brain aneurysm (Acute) Intertrigo (Acute) Kidney stone on right side (Acute) Mixed hyperlipidemia (Acute) Umbilical hernia (Acute) Surgical History Hx of lithotripsy (Acute) S/P cryotherapy of skin lesion (Resolved 1998) Status post delivery (2003) Status post delivery (2006) Family & Social History Family History Father Diabetes mellitus Coronary artery disease Smoker Mother Age: 71 History of epilepsy Grandmother Malignant neoplasm of cervix, unspecified site Sister Migraines Social History: household members spouse,children Tobacco & Substance use: Smoking Status Former smoker alcohol intake current alcohol intake frequency a few times a week Substance Use Type does not use Meds Home Medications and Allergies Home Medications Medication Instructions Recorded Confirmed Type albuterol sulfate 90 mcg/actuation 2 puff INHALATION Q6H PRN #8 gram 12/06/19 01/19/20 Rx aerosol inhaler nystatin 100,000 unit/gram topical 1 applictn TOP TID PRN #60 gram 12/06/19 01/19/20 Rx powder hydrochlorothiazide 12.5 mg PO DAILY 01/19/20 01/19/20 History Allergies Allergy/AdvReac Type Severity Reaction Status Date / Time No Known Drug Allergies Allergy Verified 01/19/20 12:45 Review of Systems Review of Systems Narrative: A 10 point review of systems is negative except as noted in the HPI Exam Vital Signs (past 8 hours): - 01/19/20 12:54 Temperature 98.5 F Pulse Rate 91 H Respiratory Rate 16 Blood Pressure 119/83 Pulse Oximetry 95 Oxygen Delivery Method Room Air Narrative Exam Narrative: General-no acute distress, well nourished adult female HEENT-moist mucous membranes, no scleral icterus Neck-supple, no lymphadenopathy Chest- non labored respirations, clear to auscultation bilaterally Cardiac-regular rate no peripheral edema Abdomen-soft, nontender, non distended Extremities-warm, well perfused Neurological-alert and oriented, no focal deficits Assessment & Plan Assessment and plan (1) Screening for colon cancer: Status: Acute Assessment & Plan narrative: The patient requires colorectal screening and colonoscopy is recommended. Technical details were discussed. Risks, benefits, alternatives explained. Risks including but not limited to myocardial infarction, aspiration, bleeding, pain, missed lesion, incomplete examination, need for further radiographic studies, colonic perforation, and need for major abdominal surgery were discussed. All questions were answered to their satisfaction, and they are in agreement with this plan. COVID-19 COVID-19 status: Negative
[2020-01-19] MEDS: fentaNYL 250 MCG/5 ML INJ IV (13:36)
[2020-01-19] MEDS: MIDAZOLAM 5 MG/5 ML VIAL IV (13:36)
[2020-01-19 14:01] VITALS: BP 118/82; PULSE 88; RESP 16; TEMP 36.3; O2SAT 95
--- NOTE | 2020-01-19 14:02 | PM.OP.ENDO ---
Operative Date/Time/Diagnoses Date of procedure: 01/19/20 Time of procedure: 14:02 Pre-op diagnosis: Screening colonoscopy Post-op diagnosis: same Procedure & Clinicians Study performed: Colonoscopy Same procedure as scheduled: Yes Indications: 49-year-old female here for initial routine screening colonoscopy Surgeon: Tyler Quesada Procedure Notes SCOAP/Timeout: Performed Procedure in detail: Patient placed in left lateral recumbent position. Time out was performed. Procedural sedation was administered with Versed and Fentanyl. Examination began with a thorough inspection of the perianal area there was no evidence of fissures, fistulae, external hemorrhoids or cutaneous malignancy. The colonoscopy scope was then placed into the rectum the the lumen was insufflated with air. The scope was carefully advanced forward. Ultimately the cecum was intubated and confirmed by identification of the ileocecal valve and the confluence of the taenia. The scope was then slowly withdrawn examining colon thoroughly in all directions. In the rectum the rectal columns were identified and retroflexion of the scope was performed for inspection of the distal rectum and anal canal. The colonoscopy was notable for the followin. Quality of the preparation-excellent 2. Sigmoid diverticulosis 3. No masses or polyps 4. Grade 1 internal hemorrhoids Scope withdrawal time: 6 Sedation minutes: 20 Findings: diverticulosis and internal hemorrhoids Specimen(s): none sent Complications: none Impression: Diverticulosis Post-procedure Recommendations: Colonscopy in 10 years and High fiber diet Disposition: same day surgery
[2020-01-19 14:05] VITALS: BP 114/75; PULSE 83; RESP 12; O2SAT 95
[2020-01-19 14:11] VITALS: BP 114/78; PULSE 87; RESP 16; O2SAT 97
[2020-01-19 14:13] VITALS: BP 122/86; PULSE 86; RESP 14; TEMP 36.4; O2SAT 97
[2020-01-19 14:32] VITALS: BP 108/76; PULSE 71; RESP 18; O2SAT 97
== END 2020-01-19 14:38 | disposition home or self-care (01) ==
PROVIDERS: PCP Nurse Practitioner Family; Referring Provider Surgery; Visit Provider Surgery
PROC: 0DJD8ZZ Inspection of Lower Intestinal Tract, Via Natural or Artificial Opening Endoscopic (ICD-10-PCS; CPT 45378; principal; 2020-01-19 13:45)
DX: Z12.11 Encounter for screening for malignant neoplasm of colon (principal); J45.909 Unspecified asthma, uncomplicated; E78.5 Hyperlipidemia, unspecified; K57.30 Diverticulosis of large intestine without perforation or abscess without bleeding; K64.0 First degree hemorrhoids
CPT/HCPCS: 45378; 99152; J2250; J3010

== ENCOUNTER → 2020-02-29 13:47 | Outpatient (CLI) | payer OTHER, SELFPAY ==
--- NOTE | 2020-02-29 13:48 | DI.US.S_ITS ---
ULTRASOUND OF RIGHT BREAST AND AXILLA: 02/29/2020 CLINICAL: 6 month follow-up of axillary lymph node. Comparison is made to exams dated: 02/29/2020 mammogram, 08/30/2019 ultrasound, 02/22/2019 ultrasound, 02/22/2019 mammogram, 08/13/2018 ultrasound, 08/13/2018 mammogram, and 02/22/[address] ultrasound - [facility]. Color flow and real-time ultrasound of the right breast axilla were performed on the areas of interest. The 0.9 cm x 0.7 cm x 0.8 cm oval lymph node in the right axillal. This oval lymph node is of mixed echogenicity with hyperechoic margins. This abnormality is progressively decreased in size compared to prior studies. Color flow imaging demonstrates that there is no increase in vascularity. IMPRESSION: BENIGN There is no sonographic evidence of malignancy. The 0.9 cm x 0.7 cm x 0.8 cm oval lymph node is benign. A 1 year screening mammogram is recommended. This exam was interpreted at Station ID: [id number]. Electronically Signed By: Carlin vega/:02/29/2020 16:09:40 letter sent: Normal Exam Ultrasound BI-RADS: 2 Benign
--- NOTE | 2020-02-29 13:48 | DI.MG.S_ITS ---
BILATERAL DIGITAL DIAGNOSTIC MAMMOGRAM 3D/2D SHORT-TERM FOLLOW-UP: 02/29/2020 CLINICAL: Patient returns for a 6 month follow up of the right breast, due for bilateral exam. Comparison is made to exams dated: 02/22/2019 mammogram, 08/13/2018 mammogram, and 02/22/2018 mammogram - [facility]. The tissue of both breasts is heterogeneously dense. This may lower the sensitivity of mammography. No significant masses, calcifications, or other findings are seen in either breast. IMPRESSION: INCOMPLETE: NEEDS ADDITIONAL IMAGING EVALUATION There is no abnormality seen in the right axilla to correspond with the ultrasound finding in the right axilla, however, ultrasound is recommended. This exam was interpreted at Station ID: [id number]. NOTE: For mammograms, a report in lay terms will be sent to the patient. Approximately 15% of breast malignancies will not be visualized mammographically. In the management of a palpable breast mass, a negative mammogram must not discourage biopsy of a clinically suspicious lesion. Electronically Signed By: Carlin vega/jil:02/29/2020 14:48:13 ACR BI-RADS Category 0: Incomplete [id number]
== END ==
PROVIDERS: PCP Nurse Practitioner Family; Referring Provider Registered Nurse; Visit Provider Registered Nurse
DX: R92.8 Other abnormal and inconclusive findings on diagnostic imaging of breast (principal); N60.01 Solitary cyst of right breast; R59.9 Enlarged lymph nodes, unspecified
CPT/HCPCS: 76642; 77066; G0279

== ENCOUNTER → 2020-03-08 08:18 | Outpatient (CLI) | payer OTHER, SELFPAY ==
[2020-03-08 09:31] LABS: Hemoglobin A1C% w Est Avg Glu 5.8 % (4.0-6.0)
== END ==
PROVIDERS: PCP Nurse Practitioner Family; Referring Provider Nurse Practitioner Family; Visit Provider Nurse Practitioner Family
DX: R73.09 Other abnormal glucose (principal)
CPT/HCPCS: 36415; 83036

== ENCOUNTER → 2020-07-20 07:56 | Outpatient (CLI) | payer OTHER, SELFPAY ==
[2020-07-20 09:11] LABS: Hematocrit 41.8 % (36-46); Mean Corpuscular HGB Conc 33.5 % (30-36); Mean Corpuscular Hemoglobin 28.7 PG (26-34); Mean Corpuscular Volume 85.5 fL (80-100); Platelet Count 256 X10^3/uL (150-400); Red Blood Cell Count 4.89 X10^6/uL (4.0-5.2); Red Cell Distribution Width 13.7 % (11.6-14.8); White Blood Cell Count 6.9 X10^3/uL (4.5-11.0)
[2020-07-20 09:44] LABS: Alanine Aminotransferase 21 IU/L (<35); Albumin 4.4 g/dL (3.5-5.0); Albumin Globulin Ratio 1.5 (1.0-2.8); Alkaline Phosphatase 56 U/L (38-126); Aspartate Aminotransferase 24 IU/L (14-36); BUN Creatinine Ratio 25.8 (6-22); Bilirubin Total 1.4 mg/dL (0.2-1.3); Blood Urea Nitrogen 16 mg/dL (7-17); Calcium 9.2 mg/dL (8.4-10.2); Carbon Dioxide 31 mmol/L (22-32); Chloride 101 mmol/L (98-107); Estimated Glomerular Filt Rate > 60.0 mL/min (>60); Globulin 2.9 g/dL (1.7-4.1); Glucose 107 mg/dL (70-100); HEMOLYSIS < 15 (0-50); Potassium 4.2 mmol/L (3.4-5.1); Sodium 136 mmol/L (137-145); Total Protein 7.3 g/dL (6.3-8.2)
[2020-07-20 18:27] LABS: Hemoglobin A1C% w Est Avg Glu 5.9 % (4.0-6.0)
== END ==
PROVIDERS: PCP Nurse Practitioner Family; Referring Provider Nurse Practitioner Family; Visit Provider Nurse Practitioner Family
DX: Z00.00 Encounter for general adult medical examination without abnormal findings (principal); J45.909 Unspecified asthma, uncomplicated; R73.01 Impaired fasting glucose
CPT/HCPCS: 36415; 80053; 83036; 85027

== ENCOUNTER → 2020-09-13 08:20 | Outpatient (CLI) | payer OTHER, SELFPAY ==
--- NOTE | 2020-09-13 08:22 | DI.RAD.S_ITS ---
PROCEDURE: XR KUB INDICATIONS: Kidney stones TECHNIQUE: One view of the abdomen acquired. COMPARISON: [facility], CR, XR KUB, 12/08/2019, 9:08. FINDINGS: Surgical changes and devices: None. Bowel: Bowel gas pattern is normal. Soft tissues: Small cluster of subcentimeter calcifications projecting over the lower pole left kidney remain unchanged from the prior exam. Bones: No suspicious bony lesions. IMPRESSION: Stable nonobstructive left renal calculi Dictated by: Jonel Gibbons M.D. on 09/13/2020 at 12:19 Approved by: Jonel Gibbons M.D. on 09/13/2020 at 12:31
== END ==
PROVIDERS: PCP Nurse Practitioner Family; Referring Provider Specialist; Visit Provider Specialist
DX: N20.0 Calculus of kidney (principal)
CPT/HCPCS: 74018

== ENCOUNTER → 2020-09-27 16:21 | Outpatient (CLI) | payer OTHER, SELFPAY ==
--- NOTE | 2020-09-27 16:23 | DI.RAD.S_ITS ---
PROCEDURE: XR ELBOW RT MIN 3V INDICATIONS: elbow pain TECHNIQUE: 3 views of the elbow were acquired. COMPARISON: None. FINDINGS: Bones: No fractures or dislocations. No suspicious bony lesions. Soft tissues: No elbow joint effusion. No suspicious soft tissue calcifications. IMPRESSION: Negative examination. If the patient's pain or other symptoms persist, consider further evaluation with MRI Dictated by: Giovanni Duggan M.D. on 09/28/2020 at 11:20 Approved by: Giovanni Duggan M.D. on 09/28/2020 at 12:15
== END ==
PROVIDERS: PCP Nurse Practitioner Family; Referring Provider Nurse Practitioner Family; Visit Provider Nurse Practitioner Family
DX: M25.521 Pain in right elbow (principal)
CPT/HCPCS: 73080

== ENCOUNTER → 2020-11-08 16:46 | Outpatient (CLI) | payer OTHER, SELFPAY ==
--- NOTE | 2020-11-08 16:47 | DI.US.S_ITS ---
PROCEDURE: US EXTREMITY NONVASC LOWER LT INDICATIONS: left second toe pain TECHNIQUE: Real-time scanning was performed of the 2nd toe , with image documentation. COMPARISON: None. FINDINGS: There is a well-circumscribed nonvascular hypoechoic focus measuring 6 mm x 4 mm x 5 mm within the soft tissues of the 2nd toe. IMPRESSION: Indeterminate nonvascular focus within the soft tissues of the 2nd toe. Differential considerations include infection, neoplasm, and cyst. Dictated by: Tianna Mcgraw M.D. on 11/09/2020 at 11:22 Approved by: Tianna Mcgraw M.D. on 11/09/2020 at 11:23
== END ==
PROVIDERS: PCP Nurse Practitioner Family; Referring Provider Registered Nurse; Visit Provider Registered Nurse
DX: M79.675 Pain in left toe(s) (principal)
CPT/HCPCS: 76882

== ENCOUNTER → 2021-03-15 16:25 | Outpatient (CLI) | payer BC, SELFPAY ==
--- NOTE | 2021-03-15 | DI.MG.S_ITS ---
BILATERAL DIGITAL SCREENING MAMMOGRAM 3D/2D WITH CAD: 03/15/2021 CLINICAL: Routine screening. Comparison is made to exams dated: 02/29/2020 ultrasound, 02/29/2020 mammogram, 02/22/2019 mammogram, and 01/29/2018 mammogram - [facility]. The tissue of both breasts is heterogeneously dense. This may lower the sensitivity of mammography. Current study was also evaluated with a Computer Aided Detection (CAD) system. No significant masses, calcifications, or other findings are seen in either breast. There has been no significant interval change. IMPRESSION: NEGATIVE There is no mammographic evidence of malignancy. A 1 year screening mammogram is recommended. This exam was interpreted at Station ID: [id number]. NOTE: For mammograms, a report in lay terms will be sent to the patient. Approximately 15% of breast malignancies will not be visualized mammographically. In the management of a palpable breast mass, a negative mammogram must not discourage biopsy of a clinically suspicious lesion. Electronically Signed By: Carlos rubio/jil:03/15/2021 16:47:19 letter sent: Normal Exam ACR BI-RADS Category 1: Negative [id number]
== END ==
PROVIDERS: PCP Nurse Practitioner Family; Referring Provider Nurse Practitioner Family; Visit Provider Nurse Practitioner Family
DX: Z12.31 Encounter for screening mammogram for malignant neoplasm of breast (principal)
CPT/HCPCS: 77063; 77067

== ENCOUNTER → 2021-06-01 08:18 | Outpatient (CLI) | payer BC, SELFPAY ==
[2021-06-01 09:00] LABS: Add Manual Diff / Slide Review NO; Basophils Absolute Auto 0 /uL (0-100); Basophils Percent Auto 0.6 % (0-2); Eosinophils Absolute Auto 200 /uL (0-450); Eosinophils Percent Auto 2.1 % (2-4); Hemoglobin 14.4 g/dL (12.0-16.0); Lymphocytes Absolute Auto 1500 /uL (1100-4500); Lymphocytes Percent Auto 19.6 % (25-40); Mean Corpuscular HGB Conc 34.3 % (30-36); Mean Corpuscular Hemoglobin 29.3 PG (26-34); Mean Corpuscular Volume 85.2 fL (80-100); Monocytes Absolute Auto 600 /uL (0-900); Monocytes Percent Auto 7.8 % (3-14); Neutrophils Absolute Auto 5400 /uL (1500-7000); Neutrophils Percent Auto 69.9 % (50-75); Platelet Count 238 X10^3/uL (150-400); Red Blood Cell Count 4.93 X10^6/uL (4.0-5.2); Red Cell Distribution Width 13.6 % (11.6-14.8); White Blood Cell Count 7.7 X10^3/uL (4.5-11.0)
[2021-06-01 09:31] LABS: Alanine Aminotransferase 21 IU/L (<35); Albumin 4.3 g/dL (3.5-5.0); Albumin Globulin Ratio 1.4 (1.0-2.8); Alkaline Phosphatase 57 U/L (38-126); Aspartate Aminotransferase 26 IU/L (14-36); BUN Creatinine Ratio 27.3 (6-22); Bilirubin Total 1.2 mg/dL (0.2-1.3); Blood Urea Nitrogen 15 mg/dL (7-17); Calcium 9.1 mg/dL (8.4-10.2); Carbon Dioxide 29 mmol/L (22-32); Chloride 104 mmol/L (98-107); Cholesterol 214 mg/dL (140-199); Estimated Glomerular Filt Rate > 60.0 mL/min (>60); Glucose 111 mg/dL (70-100); HDL Cholesterol 78 mg/dL (40-60); HEMOLYSIS < 15 (0-50); LDL Cholesterol Calculated 114 mg/dL (<100); Magnesium 1.9 mg/dL (1.6-2.3); Potassium 4.3 mmol/L (3.4-5.1); Sodium 137 mmol/L (137-145); Total Protein 7.3 g/dL (6.3-8.2); Triglycerides 111 mg/dL (35-150)
[2021-06-01 10:00] LABS: Thyroid Stimulating Hormone 1.51 uIU/mL (0.47-4.68)
== END ==
PROVIDERS: PCP Nurse Practitioner Family; Referring Provider Internal Medicine Cardiovascular Disease; Visit Provider Internal Medicine Cardiovascular Disease
DX: Z79.899 Other long term (current) drug therapy (principal); Z13.220 Encounter for screening for lipoid disorders
CPT/HCPCS: 36415; 80053; 80061; 83735; 84443; 85025

== ENCOUNTER → 2021-06-19 17:14 | Outpatient (CLI) | payer BC, SELFPAY ==
[2021-06-19 17:29] LABS: Add Manual Diff / Slide Review NO; Basophils Absolute Auto 100 /uL (0-100); Basophils Percent Auto 0.6 % (0-2); Eosinophils Absolute Auto 200 /uL (0-450); Eosinophils Percent Auto 1.9 % (2-4); Hematocrit 37.9 % (36-46); Hemoglobin 13.1 g/dL (12.0-16.0); Lymphocytes Absolute Auto 2200 /uL (1100-4500); Lymphocytes Percent Auto 23.3 % (25-40); Mean Corpuscular HGB Conc 34.6 % (30-36); Mean Corpuscular Hemoglobin 29.3 PG (26-34); Mean Corpuscular Volume 84.6 fL (80-100); Monocytes Absolute Auto 700 /uL (0-900); Monocytes Percent Auto 7.5 % (3-14); Neutrophils Absolute Auto 6300 /uL (1500-7000); Neutrophils Percent Auto 66.7 % (50-75); Platelet Count 314 X10^3/uL (150-400); Red Blood Cell Count 4.47 X10^6/uL (4.0-5.2); Red Cell Distribution Width 13.6 % (11.6-14.8); White Blood Cell Count 9.4 X10^3/uL (4.5-11.0)
== END ==
PROVIDERS: PCP Nurse Practitioner Family; Referring Provider Physician Assistant; Visit Provider Physician Assistant
DX: N92.0 Excessive and frequent menstruation with regular cycle (principal)
CPT/HCPCS: 36415; 85025

== ENCOUNTER → 2021-06-20 15:05 | Outpatient (CLI) | payer BC, SELFPAY ==
--- NOTE | 2021-06-20 15:06 | DI.US.S_ITS ---
PROCEDURE: US PELVIC COMPLETE INDICATIONS: MENORRHAGIA X 2 WEEKS. PELVIC CRAMPING. LMP 06/06/2021. TECHNIQUE: Real-time scanning was performed of the pelvic organs, with image documentation. Additional endovaginal scanning was necessary due to incomplete visualization of the adnexal and endometrial structures by transabdominal scanning. COMPARISON: [facility], CT, CT KIDNEY URETER BLADDER (KUB), 07/16/2019, 5:40. [facility], US, PELVIC COMPLETE, 08/21/2016, 10:09. FINDINGS: Uterus: Uterus is anteverted and normal in size at 8.4 x 5.1 x 4.7 cm. The myometrium is heterogeneous. No fibroids seen. The endometrium measures 7 mm combined thickness. Nabothian cysts. Ovaries: The right ovary measures 2.4 x 1.2 x 1.1 cm, with a calculated ovarian volume of 2 cc. The left ovary measures 3.2 x 2 x 1.5 cm, with a calculated ovarian volume of 5 cc. The ovaries have a normal sonographic appearance. Less than 12 follicles can be seen in each ovary. No adnexal masses are seen. Right paraovarian simple cyst measuring 0.6 cm. Left simple cyst measuring 1.9 cm. Other: No pathologic free abdominal or pelvic fluid. Mild bilateral pelviectasis. Postvoid residual 149 cc. Bilateral ureteral jets are seen. Nonobstructing left kidney stone measuring 0.4 cm. Increased echogenicity of the liver. Multiple gallstones. Non mobile stone at the neck measuring 0.9 cm. Negative sonographic Singh's sign. No pericholecystic fluid. No gallbladder wall thickening. IMPRESSION: 1. Endometrium measures 0.7 cm. Uterus is heterogeneous. 2. Small right paraovarian cyst measuring 0.6 cm. Left simple cyst measuring 1.9 cm. 3. Postvoid residual 149 cc. Mild bilateral renal pelviectasis. Nonobstructing left kidney stone measuring 0.4 cm. 4. No acute cholecystitis. Multiple gallstones. We strive to produce accurate, complete, and clear reports of imaging services. To assist us in improving patient care, this report was composed using standard report templates and voice recognition software. Therefore, it may contain abnormal punctuation, insertions and/or omissions. Occasional wrong-word or sound-alike substitutions may occur. Though we review the report and make efforts to correct it, we do recommend that the report be read carefully in proper context to recognize any text inaccuracies. Dictated by: Geoff Alfaro M.D. on 06/20/2021 at 16:40 Approved by: Geoff Alfaro M.D. on 06/20/2021 at 16:47
== END ==
PROVIDERS: PCP Nurse Practitioner Family; Referring Provider Physician Assistant; Visit Provider Physician Assistant
DX: N92.1 Excessive and frequent menstruation with irregular cycle (principal); N83.292 Other ovarian cyst, left side; N83.201 Unspecified ovarian cyst, right side; K80.20 Calculus of gallbladder without cholecystitis without obstruction; N20.0 Calculus of kidney
CPT/HCPCS: 76830; 76856

== ENCOUNTER 2021-06-21 16:56 | Emergency (ER) | payer BC, SELFPAY ==
[2021-06-21 17:02] VITALS: BP 157/85; PULSE 85; RESP 18; TEMP 35.8; O2SAT 98; BMI 24.5
--- NOTE | 2021-06-21 19:24 | ED.FEMALEGU ---
HPI - Female Genitourinary <Melvin Joshi PA-C - Last Filed: 06/21/21 20:10> General Chief complaint: Urogenital-Female Stated complaint: OVARIAN CYST BLEEDING Time Seen by Provider: 06/21/21 18:50 Source: patient Mode of arrival: Ambulatory History of Present Illness HPI Narrative: Patient is a 51-year-old female presenting to the emergency department today for evaluation of increased vaginal bleeding. Patient states that she has experienced increased vaginal bleeding over the past 2 weeks. She states that she had a pelvic ultrasound performed yesterday which showed an ovarian cyst, she was told to come to the emergency department if her bleeding persists. Patient states she has not experienced any pain, however she states that she is bleeding with clots. No fever, chills, chest pain, cough, shortness of breath, vomiting, diarrhea, nausea, abdominal pain, dysuria, hematuria, or any other concerning symptoms reported. No further concerns are voiced at this time. Related Data Previous Rx's Medication Instructions Recorded albuterol sulfate 90 mcg/actuation 2 puff INHALATION Q6H PRN #8 gram 09/21/20 aerosol inhaler (ProAir HFA) diclofenac sodium 1 % topical gel 2 g TOPICAL QID PRN #100 g 09/27/20 (Arthritis Pain (diclofenac)) naproxen 500 mg tablet 500 mg PO BID #60 tab 11/21/20 nystatin 100,000 unit/gram topical 1 applic TOP TID PRN #60 gram 12/17/20 powder hydrochlorothiazide 12.5 mg tablet 12.5 mg PO DAILY #90 tab 05/08/21 Allergies Allergy/AdvReac Type Severity Reaction Status Date / Time No Known Drug Allergies Allergy Verified 04/23/21 10:26 Review of Systems <Melvin Joshi PA-C - Last Filed: 06/21/21 20:10> Constitutional Constitutional: Denies chills, Denies fatigue, Denies fever(s), Denies frequent falls, Denies lethargy and Denies weakness Eyes Eyes: Denies loss of vision ENT Ears, Nose, Mouth, and Throat: Denies dizziness and Denies neck pain Cardiovascular Cardiovascular: Denies chest pain, Denies irregular heart rhythm, Denies lightheadedness, Denies palpitations, Denies dyspnea, Denies dyspnea on exertion and Denies orthopnea Respiratory Respiratory: Denies cough, Denies dyspnea, Denies dyspnea on exertion and Denies wheezing Gastrointestinal Gastrointestinal: Denies abdominal pain, Denies change in bowel habits, Denies diarrhea, Denies nausea and Denies vomiting Genitourinary Genitourinary: Denies hematuria, Denies flank pain, Denies urinary incontinence, Denies urinary urgency and Reports other (Increased vaginal bleeding) Musculoskeletal Musculoskeletal: Denies back pain, Denies muscle weakness, Denies neck pain, Denies numbness and Denies tingling Integumentary/Breasts Skin/Breast: Denies pruritus, Denies erythema, Denies rash and Denies wounds Neurologic Neurologic: Denies behavioral changes, Denies confusion, Denies dizziness, Denies frequent falls, Denies loss of vision, Denies numbness, Denies tingling and Denies weakness Psychiatric Psychiatric: Denies behavioral changes and Denies confusion Endocrine Endocrine: Denies fatigue and Denies palpitations Allergic/Immunologic Allergic/Immunologic: Denies wheezing Patient History <Melvin Joshi PA-C - Last Filed: 06/21/21 20:10> Medical History Abnormal mammogram of right breast Arthritis Asthma Diastasis recti Diverticulosis (01/2020) Elevated glucose Encounter for wellness examination in adult (06/14/20) Family history of brain aneurysm Hemorrhoids (01/2020) History of nephrolithiasis Intertrigo Kidney stone on right side Mixed hyperlipidemia Nephrolithiasis Osteoarthritis Skin nodule Toe pain, left Umbilical hernia Surgical History Hx of lithotripsy S/P cryotherapy of skin lesion (1998) Status post delivery (2003) Status post delivery (2006) Family History Father Diabetes mellitus Coronary artery disease Smoker Mother Age: 72 History of epilepsy Grandmother Malignant neoplasm of cervix, unspecified site Sister Migraines alcohol intake frequency: a few times a week Alcohol type: beer and wine Substance Use Type: does not use Exam <Melvin Joshi PA-C - Last Filed: 06/21/21 20:10> Narrative Exam Narrative: GENERAL: 51 year old patient appears stated age. Well-developed patient, in no acute distress. HEAD: Atraumatic. Normocephalic. EYES: Pupils equal round and reactive. Extraocular motions intact. No scleral icterus. No injection or drainage. ENT: Nose without bleeding, purulent drainage. Throat without erythema, tonsillar hypertrophy or exudate. Airway patent. NECK: Trachea midline. Non tender CARDIOVASCULAR: Regular rate and rhythm without murmurs, gallops, or rubs. RESPIRATORY: Clear to auscultation. Breath sounds equal bilaterally. No wheezes, rales, or rhonchi. GASTROINTESTINAL: Abdomen soft, non-tender, nondistended. EXTREMITIES: No edema or joint tenderness. BACK: Nontender without deformity or crepitance. No flank tenderness. NEURO: AOx3. SKIN: No rash or erythema of visible areas Initial Vital Signs Initial Vital Signs: Vital Signs Temperature 96.4 F L 06/21/21 17:02 Pulse Rate 85 06/21/21 17:02 Respiratory Rate 18 06/21/21 17:02 Blood Pressure 157/85 H 06/21/21 17:02 Pulse Oximetry 98 06/21/21 17:02 External Female Exam: normal external appearance Speculum Exam - Vagina: normal vaginal discharge Speculum Exam - Cervix: normal appearance of the cervix <Evelio Grissom DO - Last Filed: 06/21/21 23:23> Initial Vital Signs Initial Vital Signs: Vital Signs Temperature 96.4 F L 06/21/21 17:02 Pulse Rate 85 06/21/21 17:02 Respiratory Rate 18 06/21/21 17:02 Blood Pressure 157/85 H 06/21/21 17:02 Pulse Oximetry 98 06/21/21 17:02 Course <Melvin Joshi PA-C - Last Filed: 06/21/21 20:10> Course Course Narrative: Pelvic exam performed. Urinalysis obtained. Vital Signs Vital signs: Vital Signs - 8 hr 06/21/21 17:02 06/21/21 20:09 Temperature 96.4 F L Pulse Rate 85 85 Respiratory Rate 18 18 Blood Pressure 157/85 H 111/69 Pulse Oximetry 98 97 <Evelio Grissom DO - Last Filed: 06/21/21 23:23> Vital Signs Vital signs: Vital Signs - 8 hr 06/21/21 17:02 06/21/21 20:09 Temperature 96.4 F L Pulse Rate 85 85 Respiratory Rate 18 18 Blood Pressure 157/85 H 111/69 Pulse Oximetry 98 97 [facility] - Female Genitourinary <Melvin Joshi PA-C - Last Filed: 06/21/21 20:10> [facility] Narrative Medical decision making narrative: To consider polyps versus adenomyosis versus leiomyoma versus coagulopathy versus ovulatory dysfunction versus fibroids. Overall, physical examination and history referring. Reviewed pelvic ultrasound results from 06/20/21 and informed the patient that no acute abnormality was identified. Additionally, I informed the patient the no abnormality was identified on pelvic exam or bimanual exam in the emergency department today. Patient appeared anxious about the fact that she was unable to visit with her OBGYN until July. I discussed the possibility of setting up a referral for the patient without promising an urgent evaluation with OBGYN. Patient agreed to have referral set up. She states at this time she feels comfortable being discharged home. History to turn precautions were discussed with the patient prior to discharge. At this time patient is stable for discharge. Lab studies from 06/19/2021 were reviewed no acute abnormality identified. Discharge Plan Departure Patient Disposition: Home Clinical Impression: Ovarian cyst, Abnormal uterine bleeding Instructions: DI for Ovarian Cyst Activity Restrictions/Additional Instructions: *You have been diagnosed with ovarian cyst, abnormal uterine bleeding *What to do: *Please continue to take your regular medications as directed. [ ] New medication prescriptions sent to your pharmacy: [ ] [ ] New medication written as a paper prescription [X] No new medications given Pelvic ultrasound from 06/20/21 was reviewed head no acute abnormality was identified that would require further workup. Additionally, pelvic exam and bimanual examination performed in the emergency department today were unremarkable. Per your request, I have set up the referral with Dr. Pires (air grinder). He may contact his office at . Please follow-up with the primary care provider within the next 2-3 days for further evaluation. Do not hesitate to return to the emergency department if you experience increased bleeding, dizziness/lightheadedness, syncope, pelvic pain, fever, or any other concerning symptoms. *Please follow up with your primary care provider in 2-3 days, call for an appointment. Let them know you were seen in the Emergency Department and that we ask that you be seen in follow up. We will electronically transmit a record of today's note if your PCP is in our system *If you do not have a primary care provider please contact the [facility] Resource line at [phone]. They will ask some questions about your medical history and help get you set up with a doctor in the community. *Return to Emergency Department if you should have any new, worsening or concerning symptoms, such as [fever greater than 101 F, shaking chills, worsening pain, persistent vomiting or other bothersome symptoms] Prescriptions: No Action albuterol sulfate [ProAir HFA] 90 mcg/actuation HFA aerosol inhaler 2 puff INHALATION Q6H PRN (Reason: shortness of breath or wheezing) Qty: 8 3RF naproxen 500 mg tablet 500 mg PO BID Qty: 60 0RF Rx Instructions: stop other NSAIDs, take with food, do not use with topical diclofenac nystatin 100,000 unit/gram powder 1 applic TOP TID PRN (Reason: rash under breasts) Qty: 60 3RF Rx Instructions: Apply up to 3 times daily as needed for rash under both breasts hydrochlorothiazide 12.5 mg tablet 12.5 mg PO DAILY Qty: 90 0RF diclofenac sodium [Arthritis Pain (diclofenac)] 1 % gel 2 g topical QID PRN (Reason: right elbow pain) Qty: 100 0RF Referrals: Beatriz Saldivar ARNP [Primary Care Provider] - Marbin Pires MD [Physician] - 5-7 days <Evelio Grissom DO - Last Filed: 06/21/21 23:23> [facility]: Dr Grissom Co-Sign Statement: I was available for consultation during this patient's emergency department visit. This chart is signed by myself for administrative purposes only. I did not have direct contact with this patient during this visit. They were seen independently by the APC.
[2021-06-21 20:09] VITALS: BP 111/69; PULSE 85; RESP 18; O2SAT 97
== END 2021-06-21 20:10 | disposition home or self-care (01) ==
PROVIDERS: Emergency Provider Physician Assistant; PCP Nurse Practitioner Family
DX: N83.209 Unspecified ovarian cyst, unspecified side (principal); N93.9 Abnormal uterine and vaginal bleeding, unspecified
CPT/HCPCS: 99281

== ENCOUNTER → 2021-09-11 16:19 | Outpatient (CLI) | payer OTHER, SELFPAY ==
[2021-09-11 17:24] LABS: COVID19 -Nasal RAPID Negative (Negative)
== END ==
PROVIDERS: PCP Nurse Practitioner Family; Visit Provider Obstetrics & Gynecology
DX: Z01.812 Encounter for preprocedural laboratory examination (principal); Z20.822 Contact with and (suspected) exposure to COVID-19
CPT/HCPCS: 87635

== ENCOUNTER 2021-09-12 06:25 | Day surgery (SDC) | payer OTHER, SELFPAY ==
[2021-09-10 15:13] VITALS: BMI 24.3
[2021-09-12] VITALS (9 sets, daily range): BP systolic 111–144; BP diastolic 70–81; PULSE 68–80; RESP 13–17; TEMP 36.1–36.9; O2SAT 97–100; BMI 24.3
--- NOTE | 2021-09-12 | PATH_ITS ---
[facility] Accession Number: [id number] No. of containers..02 Tissue . 01 Material submitted: . PART A: endocervix - ENDOCERVICAL CURETTINGS PART B: endometrium - ENDOMETRIAL CURETTINGS . 02 Diagnosis: A. Endocervical Curettings: Small fragments of endocervical tissue and strips of endocervical glandular epithelium; negative for glandular dysplasia or malignancy. Avulsed portions of squamous mucosa with focal cytologic atypia, suggestive of, but not diagnostic of, low-grade squamous intraepithelial lesion / NATTY-1. . B. Endometrial Curettings: Portions of weakly proliferative endometrium; negative for glandular hyperplasia, cytologic atypia, or malignancy. Some endometrial fragments demonstrate prominent vessels, suggestive of polyp, if clinical and imaging studies are concordant. Small polypoid portion of necrotic pseudodecidualized stroma, suggestive of possible exogenous hormone effect, in the appropriate clinical setting. . . MRV 09/16/2021 1700 Local . 02 Comment: There is a minor disagreement with Pap smear [id number]. . 02 Electronically signed: . Nusrat To MD, Pathologist NPI- [id number] . 01 Gross description: . A. The specimen is received in formalin, labeled endocervical curettings, and consists of an aggregate of hemorrhagic tissue measuring 2.5 x 2.3 x 0.4 cm in aggregate. The specimen is filtered and entirely submitted in one cassette. B. The specimen is received in formalin, labeled endometrial curettings, and consists of an aggregate of thomas and hemorrhagic tissue measuring 2.7 x 1.8 x 0.3 cm in aggregate. The specimen is filtered and entirely submitted in one cassette. ([id number]) . /[facility] 09/13/2021 1737 Local . 02 Pathologist provided ICD-10: N92.4 . 02 CPT . 380288, 099702 Specimen Comment: A courtesy copy of this report has been sent to [phone] Performed at: 01 LabPending sale to [facility] [address] [id number] MD Carlin Jarvis MD Phone: [phone] Performed at: [address] [id number] MD Radha Weber MD Phone: [phone]
[2021-09-12] MEDS: SCOPOLAMINE 1 PATCH TOP (07:11)
[2021-09-12] MEDS: ACETAMINOPHEN 325 MG TABLET 975 MG PO (07:12)
[2021-09-12] MEDS: LACTATED RINGERS 1,000 ML 42 ML IV (07:13)
[2021-09-12] MEDS: GABAPENTIN 300 MG CAPSULE PO (07:13)
--- NOTE | 2021-09-12 07:31 | PM.PREOP ---
Pre-operative Note COVID-19 COVID-19 status: Negative Result date/Date tested (Pos, Neg/Pending): 09/12/21 Criteria for continued procedure: Non-surgical alternatives not available or appropriate per current SOC Interval Note History & Physical reviewed/Exam performed by Physician: Yes Changes to H&P: No
--- NOTE | 2021-09-12 08:18 | P.OP_ITS ---
Operative Date/Time/Diagnoses Date of procedure: 09/12/21 Time of procedure: 07:45 Pre-op diagnosis: Perimenopausal menometrorrhagia Post-op diagnosis: same Procedure & Clinicians Procedure: Procedures Operation Date: 09/12/21 07:45 Actual Procedure Side Surgeon p Hysteroscopy w/poss. BX's, D&C & Endometrial Ablation (Novasure) Marbin Pires MD Indications: Jonelle is a 51-year-old A1, LMP September 04, 2021 who originallypresented in referral from her primary care provider for evaluation of most recent menses are which was delayed and lasted 2 weeks.? The period was also notable for passage of clots and significant cramping which is unusual for her.? She experienced menarche between ages 8 and 9 and for the most part has had regular predictable menses throughout her reproductive life.? She was briefly on oral contraceptives in her teens for menstrual regulation but otherwise has not had any issues with her menses or conceiving.? She had her 2nd section in 2006 and at that time had tubal ligation performed.? Since that time her periods of remain regular up until her period in April which was slightly late and slightly heavier than usual.? The.? In May however was significantly late and much heavier, lasting 2 weeks.? Patient denies any vasomotor symptoms, insomnia, night sweats, or mood changes.? Paps have always been normal throughout her reproductive life with her most recent approximately 2 years ago.? She denies any intermenstrual bleeding, or postcoital bleeding.? Pelvic ultrasound was obtained on 06/20/2021 which showed: FINDINGS:? ?? Uterus:? Uterus is anteverted and normal in size at 8.4 x 5.1 x 4.7 cm. The myometrium is heterogeneous.? No fibroids seen.? The endometrium measures 7 mm combined thickness.? Nabothian cysts. ? Ovaries:? The right ovary measures 2.4 x 1.2 x 1.1 cm, with a calculated ovarian volume of 2 cc. The left ovary measures 3.2 x 2 x 1.5 cm, with a calculated ovarian volume of 5 cc. The ovaries have a normal sonographic appearance. Less than 12 follicles can be seen in each ovary.? No adnexal masses are seen.? Right paraovarian simple cyst measuring 0.6 cm.? Left simple cyst measuring 1.9 cm. ? Other:? No pathologic free abdominal or pelvic fluid.? Mild bilateral pelviectasis.? Postvoid residual 149 cc.? Bilateral ureteral jets are seen.? Nonobstructing left kidney stone measuring 0.4 cm.? Increased echogenicity of the liver.? Multiple gallstones.? Non mobile stone at the neck measuring 0.9 cm.? Negative sonographic Singh's sign.? No pericholecystic fluid.? No gallbladder wall thickening.? ? ? IMPRESSION:? 1. Endometrium measures 0.7 cm.? Uterus is heterogeneous.? ? 2. Small right paraovarian cyst measuring 0.6 cm.? Left simple cyst measuring 1.9 cm. ? Patient had a trial of oral contraceptives which failed to control her bleeding and an endometrial biopsy showed no histologic abnormalities.? After discussion consideration of all options, the patient is proceeding now with hysteroscopy with possible biopsies, dilation and curettage of the uterus, and endometrial ablation (NovaSure).? Her surgery is scheduled for the Main OR of [facility] on 09/12/2021 and she presents today for her scheduled surgery. Surgeon: Marbin Pires Anesthesia Type: General Operative Notes Findings: Normal endometrial cavity without focal lesions Closure Type: not applicable Specimen(s): endometrial curettings and other (Endocervical curettings) Estimated blood loss (mL): 25 Blood products transfused: none Procedure in detail: With the patient under satisfactory general LMA, in the modified dorsal lithotomy position, the perineum and vagina were prepped and draped in the usual fashion for hysteroscopy.? A pre-surgical safety time-out was then taken in accordance with [facility] OR protocols.? A bivalve speculum was inserted in the vagina and the anterior lip of the cervix grasped with a single- tooth tenaculum.? The endocervical canal was then easily dilated to 6 mm and hysteroscope was placed through the endocervical canal into the endometrial cavity.? Inspection of the endometrial cavity with sterile saline as a distention medium revealed the findings as noted above.? Absent any focal lesions, no biopsies were taken but rather fractional curettage was then accomplished with abundant EMC and small amount of ECC submitted as separate pathologic specimens.? Following the D and C the endometrial cavity was sounded with the NovaSure device and found to be 5.0 cm in depth with a with of 4.6 cm.? After a successful cavity integrity test, the NovaSure ablation was initiated with a total ablation time of 1 minute 43 seconds and 127W utilized.? Hysteroscopic reinspection of endometrial cavity showed excellent ablation effect and the scope was removed from the endometrial cavity.? The tenaculum was then removed from the anterior lip the cervix and there was a small amount of bleeding noted from right side which was controlled with Allis clamps placed the site of puncture.? Once complete hemostasis was assured the speculum was removed from the vagina and patient awakened from anesthesia.? Patient was transferred to PACU for a period of observation and recovery having tolerated procedure. Complications: none Post-operative Condition: stable Disposition: PACU Plan for aftercare: Routine post-op care with follow-up scheduled for two weeks post-op
--- NOTE | 2021-09-12 08:24 | SUR.OPER ---
Lithotomy on padded OR bed, head on pillow, arms secured on padded arm boards at <90 degrees abduction. Legs secured in padded yellow fins stirrups.
[2021-09-12] MEDS: OXYCODONE IR 5 MG TABLET PO (08:53)
== END 2021-09-12 09:13 | disposition home or self-care (01) ==
PROVIDERS: PCP Nurse Practitioner Family; Referring Provider Obstetrics & Gynecology; Visit Provider Obstetrics & Gynecology
PROC: 0U5B8ZZ Destruction of Endometrium, Via Natural or Artificial Opening Endoscopic (ICD-10-PCS; CPT 58563; principal; 2021-09-12 07:45)
DX: N92.1 Excessive and frequent menstruation with irregular cycle (principal); F41.9 Anxiety disorder, unspecified; J45.20 Mild intermittent asthma, uncomplicated
CPT/HCPCS: 58563; J1100; J1885; J2250; J2405; J2704

== ENCOUNTER → 2021-10-03 09:29 | Outpatient (CLI) | payer OTHER, SELFPAY ==
--- NOTE | 2021-10-03 09:30 | DI.US.S_ITS ---
PROCEDURE: US PELVIC COMPLETE INDICATIONS: Left ovarian cyst. Family history of ovarian cancer. TECHNIQUE: Real-time scanning was performed of the pelvic organs, with image documentation. Additional endovaginal scanning was necessary due to incomplete visualization of the adnexal and endometrial structures by transabdominal scanning. COMPARISON: [facility], US, US PELVIC COMPLETE, 06/20/2021, 15:38. FINDINGS: Uterus: Uterus is anteverted and normal in size at 9.8 x 4.5 x 4.6 cm. The myometrium is homogeneous. The endometrium measures 2.0 mm combined thickness. Ovaries: The right ovary measures 2.5 x 1.2 x 2.5 cm. The left ovary measures 1.8 x 1.2 x 1.0 by cm. The ovaries have a normal sonographic appearance. Less than 12 follicles can be seen in each ovary. No adnexal masses are seen. Previously identified ovarian cyst are not identified. Other: No pathologic free abdominal or pelvic fluid. IMPRESSION: 1. Uterus and adnexa are sonographically normal. 2. Previously identified right paraovarian cyst and simple left ovarian cyst are not seen in the current study. Dictated by: Maddy Berrios MD, PhD on 10/03/2021 at 16:06 Approved by: Maddy eBrrios MD, PhD on 10/03/2021 at 16:08
== END ==
PROVIDERS: PCP Registered Nurse Diabetes Educator; Referring Provider Obstetrics & Gynecology; Visit Provider Obstetrics & Gynecology
DX: N83.202 Unspecified ovarian cyst, left side (principal); Z80.41 Family history of malignant neoplasm of ovary
CPT/HCPCS: 76830; 76856

== ENCOUNTER → 2021-11-21 12:46 | Outpatient (CLI) | payer OTHER, SELFPAY ==
--- NOTE | 2021-11-21 12:47 | DI.ECHO.S_ITS ---
[facility] +---------+ [facility] +---------+ : : [address] : : : : [id number] : : : : Phone: [phone] Echocardiogram Report + + :Name: LUNA GARCIA Study Date: 11/21/2021 Height: 61 in : :[facility] ReadingLocation: Weight: 129 lb : : Gender: Female BSA: 1.6 m2 : :: 1970 Age: 51 yrs BP: 118/67 mmHg: :Reason For Study: CHEST PAIN : :Ordering Physician: TORIBIO, : :KANG Performed By: Karo Jenkins : :Referring: KANG ROONEY : + + Interpretation Summary The left ventricle is normal in size. The ejection fraction is estimated to be 55-60%. Right ventricle is normal in size and function. There is mild to moderate tricuspid regurgitation. The IVC is of normal diameter and collapses greater than 50% with a sniff. This suggests a low right atrial pressure of 3 mm Hg. Procedure: A two-dimensional transthoracic echocardiogram with color flow and Doppler was performed. The study quality was technically adequate. There is no prior echocardiogram noted for this patient. The patient was in sinus rhythm with heart rates between 67-79 bpm during the exam. Left Ventricle: The left ventricle is normal in size. Proximal septal thickening is noted. There is no echo evidence for significant left ventricular outflow tract obstruction. There is no thrombus. The ejection fraction is estimated to be 55-60%. There are no focal wall motion abnormalities. Diastolic parameters suggest a relaxation abnormality of the left ventricle, consistent with probable normal filling pressures. Right Ventricle: The right ventricle is normal in size and function. Atria: The left atrial size is normal. Right atrial size is normal. There is no Doppler evidence for an interatrial shunt. Mitral Valve: There is mild mitral annular calcification. There is mild mitral regurgitation. Aortic Valve: The aortic valve is trileaflet. The aortic valve opens well. There is no aortic valve stenosis. No aortic regurgitation is present. Tricuspid Valve: The tricuspid valve is normal. There is mild to moderate tricuspid regurgitation. Pulmonary artery pressures cannot be estimated because of the lack of a measurable TR jet velocity. Pulmonic Valve: The pulmonic valve is not well visualized. There is no pulmonic valvular regurgitation. Great Vessels: The aortic root is normal size. The dimensions of the ascending aorta are normal. The IVC is of normal diameter and collapses greater than 50% with a sniff. This suggests a low right atrial pressure of 3 mm Hg. Pericardium/ Pleura There is no pericardial effusion. There is no pleural effusion. MMode/2D Measurements & Calculations LVIDd: 4.9 cm LVOT diam: 1.9 cm LVIDs: 3.2 cm Ao root diam: 2.9 cm FS: 34.8 % asc Aorta Diam: 2.9 cm EPSS: 0.85 cm Ao Arch Diam (Prox Trans): 2.8 cm IVSd: 0.70 cm LVPWd: 0.77 cm LV tarango. diameter/BSA (cm/m^2): 3.1 LV sys. diameter/BSA (cm/m^2): 2.0 LA A2 area: 13.6 cm2 RA long axis: 4.3 cm LA A4 area: 17.2 cm2 RA area: 13.7 cm2 LA length (vol): 4.9 cm RA vol: 37.2 ml LA vol: 40.7 ml RA : 23.7 ml/m2 LA vol index: 25.9 ml/m2 IVC diam: 1.1 cm RVD1 (basal): 3.1 cm RVD2 (mid): 2.5 cm TAPSE: 1.8 cm Doppler Measurements & Calculations Ao V2 max: 121.9 cm/sec LVOT Max Joseph: 81.9 cm/sec Ao V2 mean: 78.5 cm/sec LV V1 max P.7 mmHg Ao max P.9 mmHg LV V1 VTI: 16.4 cm Ao mean P.9 mmHg NAYE(I,D): 2.2 cm2 Ao V2 VTI: 22.0 cm NAYE(V,D): 2.0 cm2 sev ratio: 0.74 NAYE indexed to BSA (cm^2/m^2): 1.4 MV E max joseph: 53.7 cm/sec TR max joseph: 188.5 cm/sec MV A max joseph: 58.9 cm/sec TR max P.2 mmHg MV E/A: 0.91 PA V2 max: 88.8 cm/sec Med Peak E' Joseph: 7.6 cm/sec PA V2 mean: 58.9 cm/sec E/E' med: 7.1 PA mean P.6 mmHg Lat Peak E' Joseph: 7.8 cm/sec PA Accel Time: 0.10 sec E/E' lat: 6.9 E/e' average: 7.0 MV dec time: 0.20 sec SV(LVOT): 48.9 ml Reading Physician:04:53 PM
[2021-11-21 14:18] LABS: COVID19 -Nasal RAPID POSITIVE (Negative)
== END ==
PROVIDERS: PCP Registered Nurse Diabetes Educator; Referring Provider Internal Medicine Cardiovascular Disease; Visit Provider Internal Medicine Cardiovascular Disease
DX: I08.1 Rheumatic disorders of both mitral and tricuspid valves (principal); U07.1 COVID-19; R07.89 Other chest pain
CPT/HCPCS: 87635; 93306

== ENCOUNTER → 2022-01-31 13:46 | Outpatient (CLI) | payer OTHER, SELFPAY ==
--- NOTE | 2022-01-31 20:40 | DI.NM.S_ITS ---
DATE OF SERVICE: 01/31/2022 PROCEDURE PERFORMED: Exercise treadmill stress test without imaging. ORDERING PROVIDER: Dr. Alfreda Gardner. INDICATIONS: The patient is a 50-year-old female with recent fatigue, dyspnea with a history of asthma, and atypical chest pain. FINDINGS: 1. The patient was able to exercise for 6 minutes, 53 seconds, achieving 10.1 METs, suggesting an SEPIDEH of +10%, but this was a submaximal study because the test was terminated due to progressive complex ventricular ectopy. 2. The patient had a slightly accentuated heart rate response to exercise, with a resting heart rate of 87 BPM, increasing to 128 BPM after 3 minutes of exercise and reaching a maximum of 175 BPM (104% of her predicted maximum at peak exercise). She had a borderline hypertensive blood pressure response with a resting blood pressure of 130/90 that increased to a maximum of 200/100. 3. She had no chest discomfort or other anginal symptoms. 4. Her resting ECG shows sinus rhythm with normal ST segments and occasional isolated PVCs. With exercise, there were no significant ST-segment shifts but progressive increase in PVC frequency, with frequent couplets and triplets and brief salvos of nonsustained ventricular tachycardia that promptly improved in recovery. IMPRESSION: 1. No compelling ECG evidence of ischemia. 2. Submaximal exercise study because of increasingly frequent ventricular ectopy. Consider further evaluation with an imaging study, if clinically indicated. 3. No angina and a borderline accentuated heart rate response and a mild hypertensive blood pressure response to exercise. Jonelle Velasquez - Rosalinda/gillian doc#: [id number]/job#: [id number] dd: 01/31/2022 17:35:00 dt: 01/31/2022 20:30:00 DICTATING /COPIES TO: Kev Longoria MD COPIES MNE: JOEL;
== END ==
PROVIDERS: PCP Registered Nurse Diabetes Educator; Referring Provider Internal Medicine Cardiovascular Disease; Visit Provider Internal Medicine Cardiovascular Disease
DX: R07.89 Other chest pain (principal); R53.83 Other fatigue; R06.00 Dyspnea, unspecified; J45.909 Unspecified asthma, uncomplicated
CPT/HCPCS: 93017

== ENCOUNTER → 2022-03-21 13:48 | Outpatient (CLI) | payer OTHER, SELFPAY ==
--- NOTE | 2022-03-21 13:48 | DI.MG.S_ITS ---
BILATERAL DIGITAL SCREENING MAMMOGRAM 3D/2D WITH CAD: 03/21/2022 CLINICAL: Routine screening. Comparison is made to exams dated: 03/15/2021 mammogram, 02/29/2020 mammogram, and 02/22/2019 mammogram - [facility]. Both breasts are heterogeneously dense, which may obscure small masses (category c / 51-75% glandular tissue). Current study was also evaluated with a Computer Aided Detection (CAD) system. No significant masses, calcifications, or other findings are seen in either breast. There has been no significant interval change. IMPRESSION: NEGATIVE There is no mammographic evidence of malignancy. A 1 year screening mammogram is recommended. Based on the Tyrer Cuzick model (a risk assessment model) the patient's lifetime risk is 14.7% and her 10 year risk is 3.9%. According to the ACR, ACS, and NCCN guidelines, an annual breast MRI exam along with mammogram is recommended if the patient's lifetime risk is 20% or greater. This exam was interpreted at Station ID: [id number]. NOTE: For mammograms, a report in lay terms will be sent to the patient. Approximately 15% of breast malignancies will not be visualized mammographically. In the management of a palpable breast mass, a negative mammogram must not discourage biopsy of a clinically suspicious lesion. Electronically Signed By: Carlos rubio/jil:03/21/2022 17:37:55 letter sent: Normal Exam ACR BI-RADS Category 1: Negative 3341F
== END ==
PROVIDERS: PCP Registered Nurse Diabetes Educator; Referring Provider Registered Nurse Diabetes Educator; Visit Provider Registered Nurse Diabetes Educator
DX: Z12.31 Encounter for screening mammogram for malignant neoplasm of breast (principal)
CPT/HCPCS: 77063; 77067

== ENCOUNTER → 2022-04-14 08:52 | Outpatient (CLI) | payer OTHER, SELFPAY ==
[2022-04-14 10:57] LABS: HEMOLYSIS < 15 (0-50)
[2022-04-14 10:59] LABS: BUN Creatinine Ratio 27.5 (6-22); Blood Urea Nitrogen 14 mg/dL (7-17); Calcium 8.7 mg/dL (8.4-10.2); Carbon Dioxide 25 mmol/L (22-32); Chloride 102 mmol/L (98-107); Estimated Glomerular Filt Rate > 60 mL/min (>60); Glucose 110 mg/dL (70-100); Magnesium 1.8 mg/dL (1.6-2.3); Sodium 137 mmol/L (137-145)
[2022-04-14 11:48] LABS: Potassium 3.8 mmol/L (3.4-5.1)
== END ==
PROVIDERS: PCP Registered Nurse Diabetes Educator; Referring Provider Internal Medicine Cardiovascular Disease; Visit Provider Internal Medicine Cardiovascular Disease
DX: I49.3 Ventricular premature depolarization (principal); I47.29 Other ventricular tachycardia
CPT/HCPCS: 36415; 80048; 83735

== ENCOUNTER → 2022-05-17 08:35 | Outpatient (CLI) | payer OTHER, SELFPAY ==
[2022-05-17 09:17] LABS: Hematocrit 41.3 % (36-46); Hemoglobin 13.8 g/dL (12.0-16.0); Mean Corpuscular HGB Conc 33.4 % (30-36); Mean Corpuscular Hemoglobin 29.6 PG (26-34); Mean Corpuscular Volume 88.4 fL (80-100); Platelet Count 250 X10^3/uL (150-400); Red Blood Cell Count 4.68 X10^6/uL (4.0-5.2); Red Cell Distribution Width 13.7 % (11.6-14.8); White Blood Cell Count 9.2 X10^3/uL (4.5-11.0)
[2022-05-17 09:28] LABS: Alanine Aminotransferase 25 IU/L (<35); Albumin 4.1 g/dL (3.5-5.0); Albumin Globulin Ratio 1.5 (1.0-2.8); Alkaline Phosphatase 58 U/L (38-126); Aspartate Aminotransferase 23 IU/L (14-36); BUN Creatinine Ratio 29.2 (6-22); Blood Urea Nitrogen 14 mg/dL (7-17); Calcium 8.4 mg/dL (8.4-10.2); Carbon Dioxide 29 mmol/L (22-32); Chloride 103 mmol/L (98-107); Cholesterol 194 mg/dL (140-199); Estimated Glomerular Filt Rate > 60 mL/min (>60); Globulin 2.8 g/dL (1.7-4.1); Glucose 105 mg/dL (70-100); HDL Cholesterol 78 mg/dL (40-60); HEMOLYSIS < 15 (0-50); LDL Cholesterol Calculated 88 mg/dL (<100); Potassium 3.9 mmol/L (3.4-5.1); Sodium 137 mmol/L (137-145); Total Protein 6.9 g/dL (6.3-8.2); Triglycerides 140 mg/dL (35-150)
[2022-05-17 09:56] LABS: TSH w/ Reflex to FT4 1.53 uIU/mL (0.47-4.68)
== END ==
PROVIDERS: PCP Registered Nurse Diabetes Educator; Referring Provider Registered Nurse Diabetes Educator; Visit Provider Registered Nurse Diabetes Educator
DX: Z51.81 Encounter for therapeutic drug level monitoring (principal); E78.5 Hyperlipidemia, unspecified; R73.01 Impaired fasting glucose
CPT/HCPCS: 36415; 80053; 80061; 84443; 85027

== ENCOUNTER → 2022-08-04 16:16 | Outpatient (CLI) | payer OTHER, SELFPAY ==
--- NOTE | 2022-08-04 16:16 | DI.US.S_ITS ---
PROCEDURE: US PELVIC COMPLETE INDICATIONS: EVAL RIGHT LOWER QUADRANT PAIN TECHNIQUE: Real-time scanning was performed of the pelvic organs, with image documentation. Additional endovaginal scanning was necessary due to incomplete visualization of the adnexal and endometrial structures by transabdominal scanning. COMPARISON: [facility], US, US PELVIC COMPLETE, 10/03/2021, 10:09. FINDINGS: Uterus: Uterus is anteverted and normal in size at 7.8 x 4.1 x 4.3 cm. The myometrium is homogeneous. The endometrium measures 4 mm combined thickness. Ovaries: The right ovary measures 2 x 1.2 x 2.0 cm, with a calculated ovarian volume of 2.5 cc. The left ovary measures 3.3 x 2.0 x 2.9 cm, with a calculated ovarian volume of 9 cc. The ovaries have a normal sonographic appearance. Less than 12 follicles can be seen in each ovary. No adnexal masses are seen. Other: No pathologic free abdominal or pelvic fluid. IMPRESSION: Unremarkable pelvic ultrasound. We strive to produce accurate, complete, and clear reports of imaging services. To assist us in improving patient care, this report was composed using standard report templates and voice recognition software. Therefore, it may contain abnormal punctuation, insertions and/or omissions. Occasional wrong-word or sound-alike substitutions may occur. Though we review the report and make efforts to correct it, we do recommend that the report be read carefully in proper context to recognize any text inaccuracies. Dictated by: Mike Rico M.D. on 08/05/2022 at 9:20 Approved by: Mike Rico M.D. on 08/05/2022 at 9:21
== END ==
PROVIDERS: PCP Registered Nurse Diabetes Educator; Referring Provider Registered Nurse Diabetes Educator; Visit Provider Registered Nurse Diabetes Educator
DX: R10.31 Right lower quadrant pain (principal); R10.2 Pelvic and perineal pain
CPT/HCPCS: 76830; 76856; 93976

== ENCOUNTER → 2022-08-10 10:37 | Outpatient (CLI) | payer OTHER, SELFPAY | PROVIDERS: PCP Registered Nurse Diabetes Educator; Visit Provider Physician Assistant | DX: R10.9 Unspecified abdominal pain (principal) | CPT/HCPCS: 87077; 87086; 87147 ==

== ENCOUNTER → 2022-10-24 12:38 | Outpatient (CLI) | payer OTHER, SELFPAY ==
[2022-10-24 13:05] LABS: Hematocrit 40.8 % (36-46); Mean Corpuscular HGB Conc 34.2 % (30-36); Mean Corpuscular Hemoglobin 29.7 PG (26-34); Mean Corpuscular Volume 86.7 fL (80-100); Platelet Count 253 X10^3/uL (150-400); Red Blood Cell Count 4.71 X10^6/uL (4.0-5.2); Red Cell Distribution Width 13.1 % (11.6-14.8)
[2022-10-24 13:24] LABS: BUN Creatinine Ratio 27.4 (6-22); Blood Urea Nitrogen 17 mg/dL (7-17); Calcium 9.3 mg/dL (8.4-10.2); Carbon Dioxide 30 mmol/L (22-32); Chloride 102 mmol/L (98-107); Estimated Glomerular Filt Rate > 60 mL/min (>60); Glucose 98 mg/dL (70-100); HEMOLYSIS < 15 (0-50); Potassium 3.8 mmol/L (3.4-5.1); Sodium 139 mmol/L (137-145)
== END ==
PROVIDERS: PCP Registered Nurse Diabetes Educator; Referring Provider Nurse Practitioner Family; Visit Provider Nurse Practitioner Family
DX: R10.2 Pelvic and perineal pain (principal)
CPT/HCPCS: 36415; 80048; 85027

== ENCOUNTER → 2022-11-18 11:28 | Outpatient (CLI) | payer OTHER, SELFPAY ==
--- NOTE | 2022-11-18 11:29 | DI.MRI.S_ITS ---
PROCEDURE: MR PELVIS WO CON INDICATIONS: ongoing pelvic pain, left side TECHNIQUE: Noncontrast coronal and sagittal T1 spin echo and STIR, and axial T1 spin echo and T2 fast spin echo with fat saturation through the bony pelvis. COMPARISON: None. FINDINGS: Image quality: Excellent. Bones and joints: Bone marrow of the pelvic ring and proximal femurs show normal signal throughout. No intraosseous lesions or fractures. No avascular necrosis of the femoral heads. Mild degenerative changes at the pubic symphysis and the sacroiliac joints. Degenerative disc disease and facet hypertrophy are seen in the included lumbar spine. Mild focal subchondral edema is seen adjacent to the right sacroiliac joint and there is also subchondral sclerosis. Mild degenerative changes are seen in the hips bilaterally with marginal osteophyte formation. No significant hip effusion. Tendons and ligaments: The gluteus medius and minimus tendons appear intact, without associated muscle atrophy. The proximal iliotibial band appears intact. The iliopsoas tendon appears intact, without adjacent bursal fluid collections. The origin of the hamstring tendons demonstrate mild tendinosis bilaterally at the origins. The direct and indirect heads of the rectus femoris muscle origin appear intact. Soft tissues: Mild edema is seen within the inferior portion of the left gluteus lazaro muscle overlying the left ischial tuberosity. Visualized muscles otherwise demonstrate normal bulk and internal signal. Quadratus femoris muscle demonstrates no internal edema to suggest ischiofemoral impingement. The proximal sciatic neurovascular bundle appears intact. The included portions of the pelvis demonstrate no acute abnormality. Small fat containing periumbilical hernia. IMPRESSION: 1. Mild intramuscular edema within the left gluteus lazaro muscle inferiorly adjacent to the ischial tuberosity, possibly related to a soft tissue contusion or low-grade muscle strain. 2. Mild proximal hamstring tendinosis bilaterally. 3. Subchondral edema and subchondral sclerosis adjacent to the right iliac bone, likely related to degenerative changes rather than sacroiliitis. 4. Mild symmetric degenerative changes are seen in the hips, pubic symphysis, sacroiliac joints, and included lumbar spine. Approved by: Carlos Rodgers M.D. on 11/19/2022 at 10:03
== END ==
PROVIDERS: PCP Registered Nurse Diabetes Educator; Referring Provider Nurse Practitioner Family; Visit Provider Nurse Practitioner Family
DX: M25.452 Effusion, left hip (principal); R10.2 Pelvic and perineal pain; M47.816 Spondylosis without myelopathy or radiculopathy, lumbar region
CPT/HCPCS: 72195; A9579

== ENCOUNTER → 2023-01-01 08:41 | Outpatient (CLI) | payer OTHER, SELFPAY ==
[2023-01-01 11:51] LABS: Vitamin B12 747 pg/mL (239-931)
[2023-01-01 18:36] LABS: Hemoglobin A1C% w Est Avg Glu 5.7 % (4.0-6.0)
== END ==
PROVIDERS: PCP Registered Nurse Diabetes Educator; Referring Provider Physician Assistant; Visit Provider Physician Assistant
DX: G56.03 Carpal tunnel syndrome, bilateral upper limbs (principal)
CPT/HCPCS: 36415; 82607; 83036

== ENCOUNTER → 2023-04-06 08:04 | Outpatient (CLI) | payer OTHER, SELFPAY ==
--- NOTE | 2023-04-06 | DI.MG.S_ITS ---
BILATERAL DIGITAL SCREENING MAMMOGRAM 3D/2D WITH CAD: 04/06/2023 CLINICAL: Routine screening. Comparison is made to exams dated: 03/21/2022 mammogram, 03/15/2021 mammogram, and 02/29/2020 mammogram - [facility]. There are scattered areas of fibroglandular density in both breasts (category b / 25%-50% glandular tissue). Current study was also evaluated with a Computer Aided Detection (CAD) system. There is a possible new architectural distortion in the left breast middle depth central to the nipple seen on the craniocaudal view only. No other significant masses, calcifications, or other findings are seen in either breast. IMPRESSION: INCOMPLETE: NEEDS ADDITIONAL IMAGING EVALUATION The possible new architectural distortion in the left breast is indeterminate. Additional views with possible ultrasound are recommended. Based on the Tyrer Cuzick model (a risk assessment model) the patient's lifetime risk is 10.0% and her 10 year risk is 2.7%. According to the ACR, ACS, and NCCN guidelines, an annual breast MRI exam along with mammogram is recommended if the patient's lifetime risk is 20% or greater. This exam was interpreted at Station ID: [id number]. NOTE: For mammograms, a report in lay terms will be sent to the patient. Approximately 15% of breast malignancies will not be visualized mammographically. In the management of a palpable breast mass, a negative mammogram must not discourage biopsy of a clinically suspicious lesion. Electronically Signed By: Parrish lin/jil:04/06/2023 09:06:40 letter sent: Additional Imaging Needed ACR BI-RADS Category 0: Incomplete 3340F
== END ==
PROVIDERS: PCP Registered Nurse Diabetes Educator; Referring Provider Registered Nurse Diabetes Educator; Visit Provider Registered Nurse Diabetes Educator
DX: Z12.31 Encounter for screening mammogram for malignant neoplasm of breast (principal); R92.8 Other abnormal and inconclusive findings on diagnostic imaging of breast
CPT/HCPCS: 77063; 77067

== ENCOUNTER → 2023-05-01 09:22 | Outpatient (CLI) | payer OTHER, SELFPAY ==
--- NOTE | 2023-05-01 | DI.MG.S_ITS ---
UNILATERAL LEFT DIGITAL DIAGNOSTIC MAMMOGRAM 3D/2D WITH ADDITIONAL VIEWS: 05/01/2023 CLINICAL: Additional evaluation requested from prior study. Comparison is made to exams dated: 04/06/2023 mammogram, 03/21/2022 mammogram, 03/15/2021 mammogram, and 02/29/2020 mammogram - [facility]. There are scattered areas of fibroglandular density in the left breast (category b / 25%-50% glandular tissue). The possible benign architectural distortion in the left breast middle depth central to the nipple seen on the craniocaudal view only is not reproduced and presumably represented superimposed breast tissue. This is not seen in additional views. Subtle asymmetries seen on ramin views are unchanged compared to prior mammograms. No other significant masses or calcifications are seen in the breast. IMPRESSION: BENIGN There is no mammographic evidence of malignancy. A 1 year screening mammogram is recommended. Based on the Tyrer Cuzick model (a risk assessment model) the patient's lifetime risk is 10.0% and her 10 year risk is 2.7%. According to the ACR, ACS, and NCCN guidelines, an annual breast MRI exam along with mammogram is recommended if the patient's lifetime risk is 20% or greater. This exam was interpreted at Station ID: [id number]. NOTE: For mammograms, a report in lay terms will be sent to the patient. Approximately 15% of breast malignancies will not be visualized mammographically. In the management of a palpable breast mass, a negative mammogram must not discourage biopsy of a clinically suspicious lesion. Electronically Signed By: Darron Carter M.D. acr/:05/01/2023 10:21:34 letter sent: Normal Exam ACR BI-RADS Category 2: Benign Finding(s) 3342F
== END ==
PROVIDERS: PCP Registered Nurse Diabetes Educator; Referring Provider Registered Nurse Diabetes Educator; Visit Provider Registered Nurse Diabetes Educator
DX: R92.8 Other abnormal and inconclusive findings on diagnostic imaging of breast (principal)
CPT/HCPCS: 77065; G0279

== ENCOUNTER → 2023-09-04 08:49 | Outpatient (CLI) | payer OTHER, SELFPAY ==
--- NOTE | 2023-09-04 08:50 | DI.CT.S_ITS ---
PROCEDURE: CT ABDOMEN PELVIS W CON INDICATIONS: LLQ pain TECHNIQUE: After the administration of intravenous contrast, axial sections acquired from the lung bases to the pubic symphysis. Coronal and sagittal reformats were performed. For radiation dose reduction, the following was used: automated exposure control, adjustment of mA and/or kV according to patient size. COMPARISON: None FINDINGS: Image quality: Diagnostic Lower chest: Unremarkable Possible small nodule in the infra-areolar region of the right breast, patient had a recent mammogram Liver: Heterogeneous perfusion and possible steatosis. Segment 4 cyst. Gallbladder and biliary system: Gallstones. Nondilated biliary system Pancreas: Nondilated duct Spleen: Nonenlarged Adrenals: No discrete nodules Kidneys: No solid mass or hydronephrosis there are small nonobstructing renal calculi, particularly at the left lower pole. Subcentimeter lesions are too small to characterize, usually cysts Vessels and lymph nodes: The main portal vein is patent. No abdominal aortic aneurysm or pathologic lymph nodes by size criteria Bowel and peritoneum: No evidence of small bowel obstruction. Few colonic diverticula are seen. No active inflammation identified. No pathologic ascites. Body wall: Rectus diastasis without obstructing bowel. Pelvis: The bladder is unremarkable. Possible partially septate versus arcuate uterus, the endometrial fundus I measure up to 7 mm. Moderately prominent left lower quadrant and rick adnexal venous structures, also seen to a lesser extent on the right. Bones: No acute or suspicious osseous finding. Degenerative changes. IMPRESSION: No acute bowel obstruction. No acute bowel inflammation. Moderately prominent left greater than right ectatic venous structures in the pelvis and rick adnexal regions, sometimes seen with pelvic congestion syndrome. Possible partially septate versus arcuate uterus, with prominence of the fundal endometrium measuring up to 7 mm. Consider correlation with ultrasound, particularly if the patient is considered postmenopausal. Other findings as above. Dictated by: Cedric Venegas M.D. on 09/04/2023 at 11:27 Approved by: Cedric eVnegas M.D. on 09/04/2023 at 11:34
== END ==
PROVIDERS: PCP Registered Nurse Diabetes Educator; Referring Provider Registered Nurse Diabetes Educator; Visit Provider Registered Nurse Diabetes Educator
DX: K80.20 Calculus of gallbladder without cholecystitis without obstruction (principal); K76.89 Other specified diseases of liver; N20.0 Calculus of kidney; K57.90 Diverticulosis of intestine, part unspecified, without perforation or abscess without bleeding; M62.08 Separation of muscle (nontraumatic), other site; R10.32 Left lower quadrant pain; R10.2 Pelvic and perineal pain; G89.29 Other chronic pain
CPT/HCPCS: 74177; Q9967

== ENCOUNTER → 2023-09-11 07:39 | Outpatient (CLI) | payer OTHER, SELFPAY ==
[2023-09-11 08:26] LABS: Hemoglobin 14.3 g/dL (12.0-16.0); Mean Corpuscular Hemoglobin 29.1 PG (26-34); Mean Corpuscular Volume 85.6 fL (80-100); Platelet Count 268 X10^3/uL (150-400); Red Cell Distribution Width 13.3 % (11.6-14.8)
[2023-09-11 08:29] LABS: Hemoglobin A1C% w Est Avg Glu 6.1 % (4.0-6.0)
[2023-09-11 08:57] LABS: Alanine Aminotransferase 48 IU/L (<35); Albumin 4.3 g/dL (3.5-5.0); Albumin Globulin Ratio 1.5 (1.0-2.8); Alkaline Phosphatase 87 U/L (38-126); Aspartate Aminotransferase 33 IU/L (14-36); BUN Creatinine Ratio 29.8 (6-22); Bilirubin Total 1.5 mg/dL (0.2-1.3); Blood Urea Nitrogen 17 mg/dL (7-17); Calcium 9.1 mg/dL (8.4-10.2); Carbon Dioxide 28 mmol/L (22-32); Chloride 106 mmol/L (98-107); Cholesterol 217 mg/dL (140-199); Estimated Glomerular Filt Rate > 60 mL/min (>60); Globulin 2.8 g/dL (1.7-4.1); Glucose 106 mg/dL (70-100); HDL Cholesterol 62 mg/dL (40-60); HEMOLYSIS < 15 (0-50); LDL Cholesterol Calculated 133 mg/dL (<100); Magnesium 2.1 mg/dL (1.6-2.3); Potassium 4.3 mmol/L (3.4-5.1); Sodium 137 mmol/L (137-145); Total Protein 7.1 g/dL (6.3-8.2); Triglycerides 110 mg/dL (35-150)
[2023-09-11 09:17] LABS: TSH w/ Reflex to FT4 1.93 uIU/mL (0.47-4.68)
== END ==
PROVIDERS: PCP Registered Nurse Diabetes Educator; Referring Provider Registered Nurse Diabetes Educator; Visit Provider Registered Nurse Diabetes Educator
DX: R73.01 Impaired fasting glucose (principal); E78.5 Hyperlipidemia, unspecified; E87.6 Hypokalemia; E83.42 Hypomagnesemia
CPT/HCPCS: 36415; 80053; 80061; 83036; 83735; 84443; 85027

== ENCOUNTER → 2023-09-16 15:35 | Outpatient (CLI) | payer OTHER, SELFPAY ==
--- NOTE | 2023-09-16 15:36 | DI.US.S_ITS ---
PROCEDURE: US PERIPH VENOUS UP EXTREM LT INDICATIONS: PAIN, EDEMA TECHNIQUE: Real-time imaging, as well as color and pulse Doppler interrogation, was performed of the upper extremity deep veins from the inferior neck to the antecubital fossa. COMPARISON: None. FINDINGS: The internal jugular vein, visualized portions of the subclavian vein, axillary, and brachial veins are free of intraluminal thrombus. Where physically possible, the veins are normally compressible. Color and pulse Doppler demonstrate normal intraluminal flow, with expected phasicity and pulsatility. Additional scanning of the cephalic and basilic veins of the superficial system demonstrates normal compressibility, without thrombus. IMPRESSION: No findings of upper extremity deep venous thrombosis can be seen. Dictated by: Kana Hudson M.D. on 09/16/2023 at 15:08 Approved by: Kana Hudson M.D. on 09/16/2023 at 15:09
== END ==
PROVIDERS: PCP Registered Nurse Diabetes Educator; Referring Provider Registered Nurse Diabetes Educator; Visit Provider Registered Nurse Diabetes Educator
DX: M79.602 Pain in left arm (principal)
CPT/HCPCS: 93971

== ENCOUNTER → 2023-10-15 08:26 | Outpatient (CLI) | payer OTHER, SELFPAY ==
--- NOTE | 2023-10-15 08:28 | DI.RAD.S_ITS ---
PROCEDURE: XR SHOULDER RT MIN 2V INDICATIONS: Right shoulder pain TECHNIQUE: 3 views of the shoulder were acquired. COMPARISON: None. FINDINGS: Bones: No fractures or dislocations. No suspicious bony lesions. Visualized ribs appear intact. Moderate hypertrophic osteoarthritic changes of the right acromioclavicular joint. Soft tissues: No suspicious soft tissue calcifications. IMPRESSION: No acute bony abnormality. Hypertrophic osteoarthritic changes of the right acromioclavicular joint. Dictated by: Parrish Jean M.D. on 10/15/2023 at 10:13 Approved by: Parrish Jean M.D. on 10/15/2023 at 10:14
--- NOTE | 2023-10-15 08:28 | DI.RAD.S_ITS ---
PROCEDURE: XR CLAVICLE RT INDICATIONS: Right shoulder pain TECHNIQUE: 2 views of the clavicle were acquired. COMPARISON: None. FINDINGS: Bones: No fractures or dislocations. No suspicious bony lesions. Moderate hypertrophic osteoarthritic changes of the right acromioclavicular joint. Soft tissue calcification adjacent to the superolateral margin of the humeral head compatible with sequela of chronic calcific rotator cuff tendinopathy. Soft tissues: No suspicious soft tissue calcifications. IMPRESSION: No acute bony abnormality. Hypertrophic osteoarthritic changes of the right acromioclavicular joint. Findings suggestive of chronic calcific rotator cuff tendinopathy. Dictated by: Parrish Jean M.D. on 10/15/2023 at 10:07 Approved by: Parrish Jean M.D. on 10/15/2023 at 10:13
== END ==
PROVIDERS: PCP Registered Nurse Diabetes Educator; Referring Provider Nurse Practitioner Family; Visit Provider Nurse Practitioner Family
DX: M89.8X1 Other specified disorders of bone, shoulder (principal); M25.511 Pain in right shoulder
CPT/HCPCS: 73000; 73030

== ENCOUNTER → 2023-11-18 06:46 | Outpatient (CLI) | payer OTHER, SELFPAY ==
--- NOTE | 2023-11-18 06:47 | DI.US.S_ITS ---
PROCEDURE: US PELVIC COMPLETE INDICATIONS: 1 EPISODE PMB TECHNIQUE: Real-time scanning was performed of the pelvic organs, with image documentation. Additional endovaginal scanning was necessary due to incomplete visualization of the adnexal and endometrial structures by transabdominal scanning. COMPARISON: [facility], US, US PELVIC COMPLETE, 08/04/2022, 16:21. FINDINGS: Uterus: Uterus is anteverted and normal in size at 6.9 x 4.9 x 5.5 cm. The myometrium is heterogeneous with 2 anechoic cysts measuring 0.7 x 0.5 x 0.7 cm and 0.7 x 0.5 x 1.1 cm. Status post endometrial ablation. No discrete measurable endometrium. Cervix and vagina are within normal limits. Ovaries: The right ovary measures 1.7 x 2 x 1.4 cm, with a calculated ovarian volume of 2.5 cc. The left ovary measures 1.3 x 2.6 x 1.5 cm, with a calculated ovarian volume of 2.5 cc. The ovaries have a normal sonographic appearance. Less than 12 follicles can be seen in each ovary. No adnexal masses are seen. Other: No pathologic free abdominal or pelvic fluid. Pelvic vasculature is mildly prominent which is nonspecific. IMPRESSION: 1. Status post endometrial ablation. No discrete measurable endometrium by ultrasound. 2. Myometrium is heterogeneous with two simple cysts measuring up to 1.1 cm which is nonspecific. 3. Normal sonographic appearance of the bilateral ovaries. We strive to produce accurate, complete, and clear reports of imaging services. To assist us in improving patient care, this report was composed using standard report templates and voice recognition software. Therefore, it may contain abnormal punctuation, insertions and/or omissions. Occasional wrong-word or sound-alike substitutions may occur. Though we review the report and make efforts to correct it, we do recommend that the report be read carefully in proper context to recognize any text inaccuracies. Dictated by: Brandon Diamond M.D. on 11/18/2023 at 9:03 Approved by: Brandon Diamond M.D. on 11/18/2023 at 9:42
== END ==
LOC: US 06:46
PROVIDERS: PCP Registered Nurse Diabetes Educator; Referring Provider Nurse Practitioner Adult Health; Visit Provider Nurse Practitioner Adult Health
DX: N93.9 Abnormal uterine and vaginal bleeding, unspecified (principal); N85.8 Other specified noninflammatory disorders of uterus
CPT/HCPCS: 76830; 76856

== ENCOUNTER → 2024-01-05 15:24 | Outpatient (CLI) | payer OTHER, SELFPAY ==
--- NOTE | 2024-01-05 15:26 | DI.US.S_ITS ---
PROCEDURE: US PELVIC COMPLETE INDICATIONS: H/O PELVIC CONGEST/ S/P GONADAL VEIN EMBOLIZATION TECHNIQUE: Real-time scanning was performed of the pelvic organs, with image documentation. Additional endovaginal scanning was necessary due to incomplete visualization of the adnexal and endometrial structures by transabdominal scanning. COMPARISON: [facility], , US PELVIC COMPLETE, 11/18/2023, 6:57. FINDINGS: Uterus: Uterus is anteverted and normal in size at 7.4 x 3.6 x 5.1 cm. The myometrium is heterogeneous. The endometrium measures 4 mm combined thickness. No focal intrauterine lesions identified. Ovaries: The right ovary measures 1.2 x 1.1 x 2.0 cm, with a calculated ovarian volume of 1.4 cc. The left ovary measures 2.1 x 1.6 x 1.1 cm, with a calculated ovarian volume of 1.9 cc. The ovaries have a normal sonographic appearance. Less than 12 follicles can be seen in each ovary. No adnexal masses are seen. Other: No pathologic free abdominal or pelvic fluid. IMPRESSION: Unremarkable sonographic evaluation of the pelvis. We strive to produce accurate, complete, and clear reports of imaging services. To assist us in improving patient care, this report was composed using standard report templates and voice recognition software. Therefore, it may contain abnormal punctuation, insertions and/or omissions. Occasional wrong-word or sound-alike substitutions may occur. Though we review the report and make efforts to correct it, we do recommend that the report be read carefully in proper context to recognize any text inaccuracies. Dictated by: Parrish Jean M.D. on 01/06/2024 at 7:11 Approved by: Parrish Jean M.D. on 01/06/2024 at 7:13
== END ==
PROVIDERS: PCP Registered Nurse Diabetes Educator
DX: N94.89 Other specified conditions associated with female genital organs and menstrual cycle (principal)
CPT/HCPCS: 76830; 76856

== ENCOUNTER → 2024-02-15 07:37 | Outpatient (CLI) | payer OTHER, SELFPAY ==
[2024-02-15 09:15] LABS: Hemoglobin A1C% w Est Avg Glu 5.6 % (4.0-6.0)
[2024-02-15 09:44] LABS: Alanine Aminotransferase 36 IU/L (<35); Albumin 4.3 g/dL (3.5-5.0); Albumin Globulin Ratio 1.7 (1.0-2.8); Alkaline Phosphatase 79 U/L (38-126); Aspartate Aminotransferase 29 IU/L (14-36); Bilirubin Total 1.1 mg/dL (0.2-1.3); Bilirubin Unconjugated 0.9 mg/dL (0.0-1.1); Cholesterol 204 mg/dL (140-199); Globulin 2.6 g/dL (1.7-4.1); Glucose 110 mg/dL (70-100); HDL Cholesterol 60 mg/dL (40-60); HEMOLYSIS < 15 (0-50); LDL Cholesterol Calculated 114 mg/dL (<100); Total Protein 6.9 g/dL (6.3-8.2); Triglycerides 151 mg/dL (35-150)
== END ==
PROVIDERS: PCP Registered Nurse Diabetes Educator; Referring Provider Registered Nurse Diabetes Educator; Visit Provider Registered Nurse Diabetes Educator
DX: R73.01 Impaired fasting glucose (principal); E78.5 Hyperlipidemia, unspecified; R74.8 Abnormal levels of other serum enzymes
CPT/HCPCS: 36415; 80061; 80076; 82947; 83036

== ENCOUNTER → 2024-03-14 08:15 | Outpatient (CLI) | payer OTHER, SELFPAY ==
--- NOTE | 2024-03-14 08:16 | DI.US.S_ITS ---
PROCEDURE: US ABDOMEN LIMITED INDICATIONS: ELEVATED LIVER ENZYMES TECHNIQUE: Real-time focused scanning was performed of the abdomen, with image documentation. COMPARISON: [facility], CT, CT ABDOMEN PELVIS W CON, 09/04/2023, 10:00. FINDINGS: The liver demonstrates enlarged size. The liver demonstrates generalized moderately increased echogenicity. This decreases ultrasound sensitivity for detection of hepatic masses. Within the right liver anteriorly, there is a 14 mm simple cyst seen. Mobile gallstones are seen, with the largest measuring 1.3 cm The gallbladder wall is not thickened, measuring 3 mm or less. No specific pericholecystic fluid is seen. The sonographic Singh sign is negative. There is no biliary dilatation, the common bile duct measures 4-5 mm. No significant pancreatic abnormality is seen on these images. IMPRESSION: An enlarged, fatty infiltrated liver can be seen. Gallstones are seen, yet without additional sonographic signs of cholecystitis. Negative for biliary dilatation. Additional findings: Simple liver cyst Dictated by: Kana Hudson M.D. on 03/14/2024 at 12:32 Approved by: Kana Hudson M.D. on 03/14/2024 at 12:33
== END ==
PROVIDERS: PCP Registered Nurse Diabetes Educator; Referring Provider Registered Nurse Diabetes Educator; Visit Provider Registered Nurse Diabetes Educator
DX: K76.0 Fatty (change of) liver, not elsewhere classified (principal); K80.20 Calculus of gallbladder without cholecystitis without obstruction; K76.89 Other specified diseases of liver; R74.8 Abnormal levels of other serum enzymes
CPT/HCPCS: 76705

== ENCOUNTER → 2024-04-08 12:38 | Outpatient (CLI) | payer OTHER, SELFPAY ==
--- NOTE | 2024-04-08 | DI.MG.S_ITS ---
BILATERAL DIGITAL SCREENING MAMMOGRAM 3D/2D WITH CAD: 04/08/2024 CLINICAL: Routine screening. Comparison is made to exams dated: 04/06/2023 mammogram, 03/21/2022 mammogram, and 03/15/2021 mammogram - [facility]. There are scattered areas of fibroglandular density (category b / 25%-50% glandular tissue). Current study was also evaluated with a Computer Aided Detection (CAD) system. There is an oval equal density focal asymmetry with a circumscribed margin in the left breast central to the nipple posterior depth. This is increased in size. No other significant masses, calcifications, or other findings are seen in either breast. IMPRESSION: INCOMPLETE: NEED ADDITIONAL IMAGING EVALUATION The oval equal density focal asymmetry in the left breast is indeterminate. Additional views with possible ultrasound are recommended. Based on the Tyrer Cuzick model (a risk assessment model) the patient's lifetime risk is 10.0% and her 10 year risk is 2.9%. According to the ACR, ACS, and NCCN guidelines, an annual breast MRI exam along with mammogram is recommended if the patient's lifetime risk is 20% or greater. This exam was interpreted at Station ID: [id number]. NOTE: For mammograms, a report in lay terms will be sent to the patient. Approximately 15% of breast malignancies will not be visualized mammographically. In the management of a palpable breast mass, a negative mammogram must not discourage biopsy of a clinically suspicious lesion. Electronically Signed By: Hannah glass/jil:04/08/2024 15:27:41 letter sent: Additional Imaging Needed ACR BI-RADS Category 0: Incomplete: Need Additional Imaging Evaluation
== END ==
PROVIDERS: PCP Registered Nurse Diabetes Educator; Referring Provider Registered Nurse Diabetes Educator; Visit Provider Registered Nurse Diabetes Educator
DX: Z12.31 Encounter for screening mammogram for malignant neoplasm of breast (principal)
CPT/HCPCS: 77063; 77067

== ENCOUNTER → 2024-04-11 13:55 | Outpatient (CLI) | payer OTHER, SELFPAY ==
--- NOTE | 2024-04-11 13:56 | DI.RAD.S_ITS ---
PROCEDURE: XR KUB INDICATIONS: Rule out recurrent stones TECHNIQUE: One view of the abdomen acquired. COMPARISON: [facility], CT, CT ABDOMEN PELVIS W CON, 09/04/2023, 10:00. [facility], CR, XR KUB, 09/13/2020, 8:38. FINDINGS: Surgical changes and devices: Multiple coils are present within the lower abdomen/pelvis. Bowel: Bowel gas pattern is normal. Soft tissues: Calcifications are present overlying the inferior aspect of the left renal shadow. Visualized solid organ contours appear normal in size. Bones: No suspicious bony lesions. IMPRESSION: Calcifications are present overlying the inferior aspect of the left renal shadow. Dictated by: Kaleigh Tinoco M.D. on 04/11/2024 at 17:31 Approved by: Kaleigh Tinoco M.D. on 04/11/2024 at 17:33
== END ==
PROVIDERS: PCP Registered Nurse Diabetes Educator; Referring Provider Urology; Visit Provider Urology
DX: N20.0 Calculus of kidney (principal); R31.21 Asymptomatic microscopic hematuria; Z87.442 Personal history of urinary calculi
CPT/HCPCS: 74018; 81002

== ENCOUNTER → 2024-04-20 14:38 | Outpatient (CLI) | payer OTHER, SELFPAY ==
--- NOTE | 2024-04-20 14:39 | DI.CT.S_ITS ---
POCEDURE: CT ABDOMEN PELVIS WO CON INDICATIONS: History of kidney stones question left renal calculi TECHNIQUE: Axial sections were acquired from the lung bases to the pubic symphysis. Coronal and sagittal reformats were performed. For radiation dose reduction, the following was used: automated exposure control, adjustment of mA and/or kV according to patient size. COMPARISON: [facility], CT, CT ABDOMEN PELVIS W CON, 09/04/2023, 10:00. FINDINGS: Image quality: Excellent Lower chest: Unremarkable Liver: Hepatomegaly. Mild patchy steatosis. 1.4 cm low-density lesion in hepatic segment 4A (06:26), unchanged from prior exam, likely representing a liver cyst. Multiple peripheral calcified gallstones in the gallbladder. The pancreas, and the spleen. Is unremarkable. The adrenal glands unremarkable. Right kidney: 3 mm right renal stone in the lower pole. No hydronephrosis of the right kidney. Left kidney: Two 5 mm stone in the lower pole of the left kidney, unchanged from prior exam. No left hydronephrosis. The bladder is unremarkable. The uterus is anteverted. The bilateral ovaries are not definitely visualized. GI: Colonic diverticulosis, most pronounced and mild in the sigmoid colon. No diverticulitis. The appendix is not definitely visualized. No bowel obstruction or bowel wall thickening. No abdominal aortic aneurysm. No calcification of the abdominal aorta. 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 Mild diastasis of the anterior abdominal wall. Bones: Unremarkable IMPRESSION: 1. 3 mm right renal stone, previously not definitely visualized, and may be secondary to differences in imaging technique. 2. Two 5 mm stone in the lower pole of the left kidney, unchanged from prior exam. 3. No hydronephrosis either kidney. Dictated by: Shelley Savage M.D. on 04/20/2024 at 17:29 Approved by: Shelley Savage M.D. on 04/20/2024 at 17:39
== END ==
PROVIDERS: PCP Registered Nurse Diabetes Educator; Referring Provider Urology; Visit Provider Urology
DX: N20.0 Calculus of kidney (principal); K80.20 Calculus of gallbladder without cholecystitis without obstruction; K76.0 Fatty (change of) liver, not elsewhere classified; K57.30 Diverticulosis of large intestine without perforation or abscess without bleeding; Z87.442 Personal history of urinary calculi
CPT/HCPCS: 74176

== ENCOUNTER → 2024-04-25 13:20 | Outpatient (CLI) | payer OTHER, SELFPAY ==
--- NOTE | 2024-04-25 13:21 | DI.US.S_ITS ---
LIMITED ULTRASOUND OF LEFT BREAST: 04/25/2024 CLINICAL: Patient returns today to evaluate a focal asymmetry in the left breast. Comparison is made to exams dated: 04/25/2024 mammogram, 04/08/2024 mammogram, 05/01/2023 mammogram, 04/06/2023 mammogram, 03/21/2022 mammogram, and 03/15/2021 mammogram - [facility]. Color flow and real-time ultrasound of the left breast 3 o'clock, and retroareolar regions were performed. Deluca scale images of the real-time examination were reviewed. There is a 0.7 cm x 0.4 cm x 0.7 cm wider than tall oval mass with a circumscribed margin in the left breast at 3 o'clock middle depth 11 cm from the nipple. This oval mass is hypoechoic with no posterior acoustic shadowing or enhancement. This correlates with mammography findings. Color flow imaging demonstrates that there is vascularity present centrally, likely representing hilar vascularity. IMPRESSION: PROBABLY BENIGN The 0.7 cm x 0.4 cm x 0.7 cm wider than tall oval mass in the left breast resembles a lymph node and is probably benign. A follow-up left mammogram and a left ultrasound in 6 months is recommended to demonstrate stability. Findings and recommendations were conveyed to the patient during today's evaluation. This exam was interpreted at Station ID: [id number]. Electronically Signed By: Parrish Jean M.D. aty/:04/25/2024 15:06:19 letter sent: Followup Recommended ACR BI-RADS Category 3: Probably Benign
--- NOTE | 2024-04-25 13:21 | DI.MG.S_ITS ---
UNILATERAL LEFT DIGITAL DIAGNOSTIC MAMMOGRAM 3D/2D WITH ADDITIONAL VIEWS: 04/25/2024 CLINICAL: Additional evaluation requested from prior study. Comparison is made to exams dated: 04/08/2024 mammogram, 05/01/2023 mammogram, 04/06/2023 mammogram, and 03/21/2022 mammogram - [facility]. There are scattered areas of fibroglandular density (category b / 25%-50% glandular tissue). There is a 0.7 cm oval focal asymmetry in the left breast at 3 o'clock middle depth. This is seen in additional views. No other significant masses or calcifications are seen in the breast. IMPRESSION: INCOMPLETE: NEED ADDITIONAL IMAGING EVALUATION The 0.7 cm oval focal asymmetry in the left breast resembles a cyst or a lymph node and is indeterminate. An ultrasound is recommended for further evaluation and is scheduled to immediately follow this examination. Based on the Tyrer Cuzick model (a risk assessment model) the patient's lifetime risk is 10.0% and her 10 year risk is 2.9%. According to the ACR, ACS, and NCCN guidelines, an annual breast MRI exam along with mammogram is recommended if the patient's lifetime risk is 20% or greater. This exam was interpreted at Station ID: [id number]. NOTE: For mammograms, a report in lay terms will be sent to the patient. Approximately 15% of breast malignancies will not be visualized mammographically. In the management of a palpable breast mass, a negative mammogram must not discourage biopsy of a clinically suspicious lesion. Electronically Signed By: Parrish Jean M.D. aty/:04/25/2024 14:06:30 letter sent: Additional Imaging Needed ACR BI-RADS Category 0: Incomplete: Need Additional Imaging Evaluation
== END ==
PROVIDERS: PCP Registered Nurse Diabetes Educator; Referring Provider Registered Nurse Diabetes Educator; Visit Provider Registered Nurse Diabetes Educator
DX: R92.8 Other abnormal and inconclusive findings on diagnostic imaging of breast (principal); N63.25 Unspecified lump in the left breast, overlapping quadrants
CPT/HCPCS: 76642; 77065; G0279

== ENCOUNTER → 2024-08-11 08:40 | Outpatient (CLI) | payer BC, SELFPAY ==
--- NOTE | 2024-08-11 08:43 | DI.ECHO.S_ITS ---
[facility] : : [address] : : [place] : : [id number] : : Phone: [phone] Echocardiogram Report + + :Name: LUNA GARCIA Study Date: 08/11/2024 Height: 61 in : :[facility] ReadingLocation: Weight: 135 lb : : Gender: Female BSA: 1.6 m2 : :: 1970 Age: 54 yrs BP: 118/85 mmHg: :Reason For Study: ESSENTIAL HYPERTENSION : :Ordering Physician: SHAHRZAD, : :MAGDA Finley Performed By: Karo Jenkins : :Referring: MAGDA MARKHAM W : + + Interpretation Summary The left ventricle is normal in size. The ejection fraction is estimated to be 50-55%. Previous LVEF 55 to 60%. In some of the apical views, there appears to be hypokinesis of mid to distal inferolateral wall. New findings. The right ventricle is normal in size and function. There is mild tricuspid regurgitation. Previously mild to moderate TR. Compared to the prior echo exam, there has been a decrease in TR severity. The right ventricular systolic pressure is estimated to be at least 19 mmHg based on an estimated right atrial pressure of 3 mm Hg. Procedure: A two-dimensional transthoracic echocardiogram with color flow and Doppler was performed. The study quality was technically adequate. Comparison is made with the echocardiogram of 11/21/2021. The patient was in sinus rhythm with heart rates between 62-70 bpm during the exam. Left Ventricle: The left ventricle is normal in size. Proximal septal thickening is noted. There is no thrombus. The ejection fraction is estimated to be 50-55%. In some of the apical views, there appears to be hypokinesis of mid to distal inferolateral wall. Which appears to be new. Diastolic parameters suggest a relaxation abnormality of the left ventricle, consistent with probable normal filling pressures. Right Ventricle: The right ventricle is normal in size and function. Atria: The left atrial size is normal. There has been no significant change since the previous study. Right atrial size is normal. There is no Doppler evidence for an interatrial shunt. Mitral Valve: The mitral valve leaflets appear mildly thickened, but open well. There is trace mitral regurgitation. Aortic Valve: The aortic valve is trileaflet. The aortic valve opens well. There is no aortic valve stenosis. No aortic regurgitation is present. Tricuspid Valve: The tricuspid valve is normal. There is mild tricuspid regurgitation. The right ventricular systolic pressure is estimated to be at least 19 mmHg based on an estimated right atrial pressure of 3 mm Hg. Compared to the prior echo exam, there has been a decrease in TR severity. Pulmonic Valve: The pulmonic valve leaflets are thin and pliable; valve motion is normal. There is trace pulmonic regurgitation. Great Vessels: The aortic root is normal size. The dimensions of the ascending aorta are normal. The IVC is of normal diameter and collapses greater than 50% with a sniff. This suggests a low right atrial pressure of 3 mm Hg. Pericardium/ Pleura There is no pericardial effusion. There is no pleural effusion. MMode/2D Measurements & Calculations LVIDd: 4.8 cm LVOT diam: 2.0 cm LVIDs: 2.8 cm Ao root diam: 2.9 cm FS: 41.6 % asc Aorta Diam: 3.0 cm EPSS: 0.81 cm Ao Arch Diam (Prox Trans): 2.9 cm IVSd: 0.70 cm LVPWd: 0.76 cm LV tarango. diameter/BSA (cm/m^2): 3.0 LV sys. diameter/BSA (cm/m^2): 1.8 LA A2 area: 15.8 cm2 RA long axis: 4.7 cm LA A4 area: 14.3 cm2 RA area: 14.1 cm2 LA length (vol): 4.8 cm RA vol: 35.6 ml LA vol: 40.0 ml RA : 22.3 ml/m2 LA vol index: 25.0 ml/m2 IVC diam: 1.6 cm RVD1 (basal): 3.0 cm TAPSE: 1.9 cm Doppler Measurements & Calculations Ao V2 max: 116.0 cm/sec LVOT Max Joseph: 64.3 cm/sec Ao V2 mean: 80.5 cm/sec LV V1 max P.7 mmHg Ao max P.4 mmHg LV V1 VTI: 13.3 cm Ao mean P.9 mmHg NAYE(I,D): 1.8 cm2 Ao V2 VTI: 22.5 cm NAYE(V,D): 1.7 cm2 sev ratio: 0.59 NAYE indexed to BSA (cm^2/m^2): 1.2 MV E max joseph: 47.9 cm/sec TR max joseph: 198.1 cm/sec MV A max joseph: 55.8 cm/sec TR max P.7 mmHg MV E/A: 0.86 PA V2 max: 92.0 cm/sec Med Peak E' Joseph: 8.0 cm/sec PA V2 mean: 61.1 cm/sec E/E' med: 6.0 PA mean P.7 mmHg Lat Peak E' Joseph: 8.9 cm/sec PA pr(Accel): 23.8 mmHg E/E' lat: 5.4 E/e' average: 5.7 MV dec time: 0.22 sec SV(LVOT): 41.6 ml Reading Physician:10:55 AM
== END ==
LOC: ECHO 08:42
PROVIDERS: PCP Registered Nurse Diabetes Educator; Referring Provider Nurse Practitioner; Visit Provider Nurse Practitioner
DX: I07.1 Rheumatic tricuspid insufficiency (principal); I10 Essential (primary) hypertension
CPT/HCPCS: 93306

== ENCOUNTER → 2024-10-07 08:15 | Outpatient (CLI) | payer BC, SELFPAY ==
--- NOTE | 2024-10-07 08:17 | DI.RAD.S_ITS ---
PROCEDURE: XR KUB INDICATIONS: Rule out recurrent stones TECHNIQUE: One view of the abdomen acquired. COMPARISON: [facility], CT, CT ABDOMEN PELVIS WO CON, 04/20/2024, 14:40. [facility], CR, XR KUB, 04/11/2024, 13:57. FINDINGS: Surgical changes and devices: Bilateral flank embolization coils.. Bowel: Bowel gas pattern is normal. Soft tissues: No suspicious abdominal calcifications. Visualized solid organ contours appear normal in size. Multiple gallstones redemonstrated. 2 calcification again seen projected over the inferior pole of the right kidney, largest measuring 8 mm. Rounded, pill like radiodensity projected over the left epigastrium. Bones: No suspicious bony lesions. IMPRESSION: 1. 2 calcifications again seen projected over the inferior pole of the left kidney similar prior examination. 2. Cholelithiasis redemonstrated. Dictated by: Antonio CRUZ Interpreted: Kaleigh Tinoco MD on 10/08/2024 at 12:23 Approved by: Kaleigh Tinoco M.D. on 10/10/2024 at 7:44
== END ==
PROVIDERS: PCP Registered Nurse Diabetes Educator; Referring Provider Urology; Visit Provider Urology
DX: Z87.442 Personal history of urinary calculi (principal); N28.89 Other specified disorders of kidney and ureter; K80.20 Calculus of gallbladder without cholecystitis without obstruction
CPT/HCPCS: 74018

== ENCOUNTER → 2024-10-24 13:22 | Outpatient (CLI) | payer BC, SELFPAY ==
--- NOTE | 2024-10-24 13:24 | DI.US.S_ITS ---
MM diagnostic mammo unilat LT, US breast LT limited: 10/24/2024 BI-RADS: 3 CLINICAL: 54-year old female for left diagnostic mammogram and left diagnostic breast ultrasound. Tyrer-Cuzick lifetime risk of 5.2%. No personal or first-degree family history of breast cancer. PRIOR EXAMS 04/25/2024, 04/08/2024, 05/01/2023, 04/06/2023, 03/21/2022, 03/15/2021, 02/29/2020, 08/30/2019, 02/22/2019, 08/13/2018, 02/22/2018, 01/29/2018, 09/18/2017, 01/07/2017, 11/21/2015, 11/16/2014. MAMMOGRAPHY TECHNIQUE: 2D and 3D (tomosynthesis) digital mammographic views obtained, with additional images as needed for full coverage. Current study was also evaluated with a Computer Aided Detection (CAD) system. ULTRASOUND TECHNIQUE TARGETED Left Breast Ultrasound: Real-time ultrasound exam was performed focused to area of clinical and/or imaging concern. DENSITY Left: A. The breasts are almost entirely fatty. MAMMOGRAPHY FINDINGS Left: Outer at 3:00, Middle depth: There is a circumscribed, oval, high- density mass present that has increased in size. Left: Central at 3:00, Middle depth: There is a round, equal-density mass present that is unchanged in size and appearance. Left: Central, Middle depth: There is an asymmetry present that is unchanged in size and appearance. ULTRASOUND FINDINGS Left: Outer at 3:00, 11.0 cm from nipple: There is no sonographic correlate for the mammographic finding. Left: Outer at 3:00, 3.0 cm from nipple: There is no sonographic correlate for the mammographic finding. IMPRESSION: Left: Outer at 3:00, 11.0 cm from nipple * Probably Benign. Left: Outer at 3:00, 3.0 cm from nipple * Probably Benign. RECOMMENDATIONS Left * Six month followup with diagnostic mammography and diagnostic ultrasound. COMMENTS: Findings and recommendations were conveyed to the patient during today's evaluation. OVERALL ASSESSMENT CATEGORY BI-RADS-3: Probably Benign. ELECTRONICALLY SIGNED: Hannah Layne M.D. on 10/26/2024 at 12:34:51 AM PT Interpreting Station ID: [id number]
== END ==
LOC: MAMMO 13:23
PROVIDERS: PCP Registered Nurse Diabetes Educator; Referring Provider Registered Nurse Diabetes Educator; Visit Provider Registered Nurse Diabetes Educator
DX: R92.8 Other abnormal and inconclusive findings on diagnostic imaging of breast (principal); N63.25 Unspecified lump in the left breast, overlapping quadrants; N64.89 Other specified disorders of breast; R92.312 Mammographic fatty tissue density, left breast
CPT/HCPCS: 76642; 77065; G0279

== ENCOUNTER → 2024-11-19 08:13 | Outpatient (CLI) | payer BC, SELFPAY ==
[2024-11-19 09:01] LABS: Hematocrit 41.0 % (36-46); Hemoglobin 14.4 g/dL (12.0-16.0); Mean Corpuscular HGB Conc 35.0 % (30-36); Mean Corpuscular Hemoglobin 29.9 PG (26-34); Mean Corpuscular Volume 85.5 fL (80-100); Platelet Count 248 X10^3/uL (150-400)
[2024-11-19 09:19] LABS: Hemoglobin A1C% w Est Avg Glu 5.3 % (4.0-6.0)
[2024-11-19 09:36] LABS: Alanine Aminotransferase 34 IU/L (<35); Albumin 4.4 g/dL (3.5-5.0); Albumin Globulin Ratio 1.6 (1.0-2.8); Alkaline Phosphatase 90 U/L (38-126); Blood Urea Nitrogen 15 mg/dL (7-17); Calcium 9.3 mg/dL (8.4-10.2); Carbon Dioxide 27 mmol/L (22-32); Chloride 104 mmol/L (98-107); Cholesterol 215 mg/dL (140-199); Estimated Glomerular Filt Rate > 60 mL/min (>60); Globulin 2.7 g/dL (1.7-4.1); Glucose 107 mg/dL (70-99); HDL Cholesterol 62 mg/dL (40-60); HEMOLYSIS < 15 (0-50); Potassium 4.4 mmol/L (3.4-5.1); Sodium 137 mmol/L (137-145); Total Protein 7.1 g/dL (6.3-8.2); Triglycerides 90 mg/dL (35-150)
[2024-11-19 10:04] LABS: TSH w/ Reflex to FT4 1.36 uIU/mL (0.47-4.68)
== END ==
PROVIDERS: PCP Registered Nurse Diabetes Educator; Referring Provider Registered Nurse Diabetes Educator; Visit Provider Registered Nurse Diabetes Educator
DX: K76.0 Fatty (change of) liver, not elsewhere classified (principal); E78.5 Hyperlipidemia, unspecified; R73.01 Impaired fasting glucose; E87.6 Hypokalemia; E83.42 Hypomagnesemia
CPT/HCPCS: 36415; 80053; 80061; 83036; 84443; 85027

== ENCOUNTER → 2025-04-13 08:38 | Outpatient (CLI) | payer BC, SELFPAY ==
--- NOTE | 2025-04-13 08:40 | DI.RAD.S_ITS ---
PROCEDURE: XR KUB INDICATIONS: 54 y/o F w/ bilateral lower pole stones, please eval TECHNIQUE: One view of the abdomen acquired. COMPARISON: [facility], CR, XR KUB, 10/07/2024, 8:12. FINDINGS: Surgical changes and devices: Bilateral gonadal vein vascular coiling. Bowel: Bowel gas pattern is normal. Soft tissues: Two left lower pole intrarenal calculi stable in position on size compared to the prior exam. Multiple peripherally calcified gallstones. Round pill projects in the proximal stomach. Bones: No suspicious bony lesions. IMPRESSION: No change in left lower pole intrarenal calculi. Cholelithiasis. Dictated by: Hannah Layne M.D. on 04/13/2025 at 12:54 Approved by: Hannah Layne M.D. on 04/13/2025 at 12:57
== END ==
PROVIDERS: PCP Registered Nurse Diabetes Educator; Referring Provider Registered Nurse Diabetes Educator; Visit Provider Urology
DX: N20.0 Calculus of kidney (principal); K80.20 Calculus of gallbladder without cholecystitis without obstruction; Z87.442 Personal history of urinary calculi
CPT/HCPCS: 74018

== ENCOUNTER → 2025-05-01 08:19 | Outpatient (CLI) | payer BC, SELFPAY ==
--- NOTE | 2025-05-01 08:22 | DI.RAD.S_ITS ---
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 COMPARISON: [facility], CR, XR HAND RT 2V, 05/01/2025, 8:29. FINDINGS: Bones: Mild degenerative change of 1st carpometacarpal joint. Additional mild degenerative changes of the interphalangeal joints of the lesser rays. Small ossification about the 1st interphalangeal joint, representing prior injury. No acute fracture or dislocation. Soft tissues: No suspicious soft tissue calcifications. IMPRESSION: No acute bony abnormality. Dictated by: Shelley Savage M.D. on 05/01/2025 at 14:37 Approved by: Shelley Savage M.D. on 05/01/2025 at 14:39
--- NOTE | 2025-05-01 08:22 | DI.RAD.S_ITS ---
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 COMPARISON: None. FINDINGS: Bones: Mild degenerative changes of the 1st carpal metacarpal joint. Multilevel degenerative changes of the distal interphalangeal of the lesser rays, most pronounced and moderate at the 2nd distal interphalangeal joint. No acute fracture or dislocation. Soft tissues: No suspicious soft tissue calcifications. IMPRESSION: Degenerative changes as described above. Dictated by: Shelley Savage M.D. on 05/01/2025 at 14:36 Approved by: Shelley Savage M.D. on 05/01/2025 at 14:37
--- NOTE | 2025-05-01 08:22 | DI.RAD.S_ITS ---
PROCEDURE: XR CHEST 2V INDICATIONS: eval SOB TECHNIQUE: 2 views of the chest were acquired. COMPARISON: None. FINDINGS: Surgical changes and devices: None. Lungs and pleura: Lungs are clear. No pleural effusions or pneumothorax. Mediastinum: Mediastinal contours are normal. Heart size is normal. Bones and chest wall: No suspicious bony abnormalities. Soft tissues appear unremarkable. IMPRESSION: No acute cardiopulmonary abnormality is seen. Dictated by: Shelley Savage M.D. on 05/01/2025 at 14:35 Approved by: Shelley Savage M.D. on 05/01/2025 at 14:35
--- NOTE | 2025-05-01 08:22 | DI.US.S_ITS ---
US breast LT limited, MM diagnostic mammo BI: 05/01/2025 BI-RADS: 4 CLINICAL: 54-year old female for bilateral diagnostic mammogram and left diagnostic breast ultrasound that is a follow-up to diagnostic mammogram on 10/24/2024. Tyrer-Cuzick lifetime risk of 7.8%. No personal or first-degree family history of breast cancer. PRIOR EXAMS 10/24/2024, 04/25/2024, 04/08/2024, 05/01/2023, 04/06/2023, 03/21/2022, 03/15/2021, 02/29/2020, 08/30/2019. MAMMOGRAPHY TECHNIQUE: 2D and 3D (tomosynthesis) digital mammographic views obtained, with additional images as needed for full coverage. Current study was also evaluated with a Computer Aided Detection (CAD) system. ULTRASOUND TECHNIQUE: TARGETED Left Breast Ultrasound: Real-time ultrasound exam was performed focused to area of clinical and/or imaging concern. Real-time garcia scale and color doppler imaging of the area of clinical interest was performed with image documentation. DENSITY B. There are scattered areas of fibroglandular density. MAMMOGRAPHY FINDINGS Right: No suspicious mass, asymmetry, microcalcification, or other abnormality seen. Left: Outer at 3:00, Middle depth, measuring 1cm. Previous report: Central: Correlating with prior imaging concern there is a circumscribed, oval, equal- density mass present that has increased in size. ULTRASOUND FINDINGS Left: Outer Hemisphere: The area from 2 o'clock to 5 o'clock, 11 cm from the nipple was scanned. There is no definite sonographic correlate for the mammographic finding. IMPRESSION: Right * No evidence of malignancy. Left (Mass): Outer at 3:00, Middle depth, measuring 1cm. Previous report: Central * Suspicious findings with likelihood of malignancy. RECOMMENDATIONS Left: Outer at 3:00, Middle depth * Stereotactic-guided biopsy for further evaluation. COMMENTS: Findings and recommendations were conveyed to the patient during today's evaluation by Dr. Rosales. OVERALL ASSESSMENT CATEGORY BI-RADS-4: Suspicious. ELECTRONICALLY SIGNED: Citlali Cummings M.D. on 05/01/2025 at 04:41:14 PM PT Interpreting Station ID: [id number]
== END ==
PROVIDERS: PCP Registered Nurse Diabetes Educator; Referring Provider Registered Nurse Diabetes Educator; Visit Provider Registered Nurse Diabetes Educator
DX: R92.8 Other abnormal and inconclusive findings on diagnostic imaging of breast (principal); N63.25 Unspecified lump in the left breast, overlapping quadrants; M19.041 Primary osteoarthritis, right hand; M19.042 Primary osteoarthritis, left hand; R06.00 Dyspnea, unspecified
CPT/HCPCS: 71046; 73120; 76642; 77066; G0279